=== PATIENT | male | born 1945 | race Caucasian/White ===

== ENCOUNTER 2016-09-21 11:30 | Inpatient (IN) | payer MEDICARE, OTHER ==
[~2016-09-21] VITALS: Ht 172.7 cm; Wt 59.0 kg
--- NOTE | ~2016-09-21 | OR ---
PATIENT'S NAME: TONYA MARC [facility] AGE: 70 Y [address] ROOM: [place] [address] LOCATION: GPCU ADMIT DATE: 09/22/2016 OR/Procedure Report DISCHARGE DATE: FAMILY PHYSICIAN: YOLIE DERAS MD ATTENDING PHYSICIAN: Isaiah Alcantara SURGEON: Isaiah Alcantara DO WHITE SHOE RAGGER: DATE OF PROCEDURE: 09/22/2016 PREOPERATIVE DIAGNOSIS: Left hydropneumothorax. POSTOPERATIVE DIAGNOSIS: Left hydropneumothorax. PROCEDURE: Placement of left PleurX drain. BRIEF HISTORY: Mr. Marc is status post left lower lobectomy for abscess. He has recently been discharged to home. He developed a hydropneumothorax and was transferred to [facility]. He has been brought to the operative suite today for placement of the drain. PROCEDURE IN DETAIL: He was sterilely prepped and draped in a supine position. After appropriate IV sedation was achieved, 1% lidocaine was used to infiltrate a skin wheal in the approximately 4th intercostal space. The pleura and hydropneumothorax space was accessed with a needle and guidewire fed without resistance under fluoroscopic guidance and sheath and dilator assembly were placed over the guidewire. The guidewire and dilator were removed and through this sheath we advanced a PleurX drain under fluoroscopic guidance. The drain was then secured to skin of the sheath was removed and tube connected to suction. The patient tolerated the procedure well and was transferred to the recovery in stable condition. DO CARLOS LOGAN/rubiol /[id number] d: 09/29/162213 t: 09/29/162241, OPERATIVE SUMMARY
--- NOTE | ~2016-09-21 | HP ---
PATIENT'S NAME: TONYA HOFFMANN [facility] AGE: 70 Y [address] ROOM: [place] [address] LOCATION: GPCU ADMIT DATE: 09/22/2016 History & Physical DISCHARGE DATE: 10/07/2016 FAMILY PHYSICIAN: Tri Serrano MD ATTENDING PHYSICIAN: Isaiah Manzano CORRECTED PATIENT ACCOUNT INFORMATION 10/15/16 AO HISTORY OF PRESENT ILLNESS: The patient is a 70-year-old white male, who is being transferred here from [facility]. The patient had recently arrived to the [facility] via [facility] after he had called with complaints of shortness of breath. Upon his arrival, he was found to have an elevated respiratory rate and decreased systolic blood pressures. He underwent a chest x-ray, which revealed a left-sided hydropneumothorax. Dr. Manzano was contacted regarding the patient's transfer for a higher level of care for remediation of the hydropneumothorax. The patient was just dismissed from [facility] back on September 18, 2016 after treatment for a recent left lower lobe abscess/empyema, for which the patient underwent a left thoracotomy with decortication, removal of a hemothorax, and a left lower lobectomy. This was performed on September 01, [address] Manzano. The patient was discharged on Levaquin, and was following with his Infectious Disease doctor, Dr. Portillo in [place]. The patient has had multiple setbacks with pulmonary issues as of late. PAST MEDICAL HISTORY: Illnesses are 1. 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 2. Recent pneumonia in July 2016, with positive respiratory cultures with Klebsiella and Serratia. 3. Hypertension. 4. Pulmonary hypertension. 5. Nocturnal hypoxia. 6. Chronic back pain. 7. History of migraine headaches. 8. History of tobaccoism. PAST SURGICAL HISTORY: Surgeries/procedures are 1. Cholecystectomy. 2. Appendectomy. 3. Previous heart catheterization. 4. Bilateral carpal tunnel release. 5. Removal of a brain cyst. PATIENT'S NAME: TONYA HOFFMANN [facility] AGE: 70 Y [address] ROOM: [place] [address] LOCATION: GPCU ADMIT DATE: 09/22/2016 History & Physical DISCHARGE DATE: 10/07/2016 FAMILY PHYSICIAN: Tri Serrano MD ATTENDING PHYSICIAN: Isaiah Manzano ALLERGIES: ROCIO. SOCIAL HISTORY: Marital Status: The patient resides in [place], [place]. He is . Occupational History: He is retired, I believe from the [employer]. Habits: He has at least a [id number] history with smoking. He quit on June 08, 2016. He denies use of alcohol. FAMILY HISTORY: This is significant for his mother having had lung cancer and his father having diabetes. MEDICATIONS: Include 1. Advair 500/50 one puff per inhalation b.i.d. 2. Ambien 10 mg p.o. at bedtime. 3. Hyzaar 100/12.5 mg p.o. q.a.m. 4. MS Contin 15 mg p.o. at bedtime. 5. Zanaflex 4 mg p.o. q.12 hours/p.r.n. muscle pain. 6. Aspirin 81 mg daily. 7. Norvasc 5 mg q.a.m. 8. Levaquin 500 mg at bedtime. 9. Ipratropium/albuterol per nebulization b.i.d. 10. Imitrex 100 mg at bedtime p.r.n. migraines. 11. Ultram 50 mg q.8 hours p.r.n. pain. 12. Prednisone 10 mg daily. 13. Vitamin C 1000 mg daily. 14. Guaifenesin 600 mg two tablets b.i.d. 15. [place] 5/325 one to two every 4 to 6 hours as needed. 16. Tudorza/Pressair one puff per inhalation b.i.d. 17. Lipitor 40 mg daily. 18. Potassium gluconate 99 mg daily. 19. Albuterol two puffs per inhalation q.6 hours p.r.n. REVIEW OF SYSTEMS: A ten-point review of systems was performed with negative findings other than those mentioned per HPI history of present illness. PHYSICAL EXAMINATION: VITAL SIGNS: Blood pressure was 113/63, pulse was 106, respirations were 24, PATIENT'S NAME: TONYA HOFFMANN [facility] AGE: 70 Y [address] ROOM: [address] [place] [id number] LOCATION: GPCU ADMIT DATE: 09/22/2016 History & Physical DISCHARGE DATE: 10/07/2016 FAMILY PHYSICIAN: Tri Serrano MD ATTENDING PHYSICIAN: Isaiah Manzano temperature was 100.4, and O2 saturations were 100% on 4 liters. GENERAL: He is pleasant. He is somewhat restless upon arrival. He appeared lethargic. HEENT: Normocephalic with EOMIs intact. Conjunctivae are clear. LUNGS: Clear to bilateral upper and diminished in bilateral lowers. CARDIOVASCULAR: Tachycardic, but regular. ABDOMEN: Soft and nontender by four quadrants. Positive bowel sounds throughout. CHEST: His thoracic incision on the left is tender to touch. He does wince. EXTREMITIES: A +2 edema bilaterally to the lower extremities. MUSCULOSKELETAL: Good range of motion of bilateral upper and lower extremities. NEUROLOGIC: Alert and oriented x3. LABORATORY DATA AND DIAGNOSTIC STUDIES: Laboratory and test results are pending. IMPRESSION: 1. Hydropneumothorax, transfer for a higher level of care. 2. Tachycardia secondary to above. 3. Severe chronic obstructive pulmonary disease/emphysema. RECOMMENDATIONS AND PLAN: We will plan for a CT scan of the chest without contrast right away. We will obtain JAZMIN hose. Plan will be for n.p.o. after midnight with placement of a left PleurX catheter drain on September 22, 2016. The plan was discussed with the patient and he does agree. Further recommendations are forthcoming, pending results of further studies. RASHAUN LYONS APRN FOR ISAIAH MANZANO DO DLQ/modl /[id number] CORRECTED PATIENT ACCOUNT INFORMATION 10/15/16 AO D: [id number] T: [id number] HISTORY & PHYSICAL
--- NOTE | ~2016-09-21 | DS ---
PATIENT'S NAME: TONYA HOFFMANN [facility] AGE: 70 Y [address] ROOM: [address] [place] [id number] LOCATION: GPCU ADMIT DATE: 09/22/2016 Discharge Summary DISCHARGE DATE: 10/07/2016 FAMILY PHYSICIAN: Tri Serrano MD ATTENDING PHYSICIAN: Isaiah Alcantara [facility] COURSE: The patient is a 70-year-old white male who was admitted on September 21, 2016 with findings of hydropneumothorax. The patient had just been previously discharged from the hospital approximately 3 days prior with a similar diagnosis. He had just not made improvement. The patient had presented to [place] with concerns. A CT scan of the chest was indicative of the hydropneumothorax on the left, and the patient was transferred under the care of Dr. Alcantara for a higher level of care. Dr. Alcantara spoke to the patient and his regarding the findings of the hydropneumothorax and discussed placement of a left PleurX catheter drain which was performed in the OR by Dr. Alcantara on September 22, 2016. The patient had no surgical complications and transferred back to the progressive care floor following the procedure. The patient was noted to have thrush and was treated with Diflucan. The patient did end up having positive fluid cultures on his surgical fluids, and he was started on gentamicin. Findings were for Pseudomonas. The patient also had cultures that were sent out to the [facility] for sensitivity. Empiric clindamycin was initiated until results were available. The patient's labs were checked frequently given the use of gentamicin. Later, the antibiotics were changed over to tobramycin. The patient was started on an antidepressant. The patient has had numerous hospitalizations. He was not showing any resolution in the bubbling in his chest tube chamber and did exhibit concerns with depression. Chest tube output was monitored closely. The patient did remain with a persistent air leak for several days postop. Eventually, the patient's chest tube was changed to water seal. He did have followup serial x-rays. He did have a change in the fluid coming from his chest tube. The chest tube was clamped off. Fluid was obtained, and multiple organisms were identified. A PICC line was placed to accommodate additional antibiotic therapy. PT, OT, and Cardiac Rehab worked with the patient during his stay. Wound care nurses did see the patient to change out his mattress to an egg crate to help with the likelihood of skin breakdown. The patient did have a depressed prealbumin, and there were concerns for healing complications. Chest x-rays continued to show fluid air levels, but at a reduced level. The cultures did return with final organisms identified as Pseudomonas aeruginosa, also with Stenotrophomonas maltophilia, and a third organism of Prevotella denticola. Care Management was asked to follow the patient in an effort to eventually get him home with either home infusion or outpatient infusion of antibiotics as the patient would require approximately 4 weeks of therapy. Also, home health for drainage of the PleurX catheter upon the patient's discharge. This would need to be drained daily. Home health will also work with the insurance companies. PATIENT'S NAME: TONYA HOFFMANN [facility] AGE: 70 Y [address] ROOM: [place] [address] LOCATION: GPCU ADMIT DATE: 09/22/2016 Discharge Summary DISCHARGE DATE: 10/07/2016 FAMILY PHYSICIAN: Tri Serrano MD ATTENDING PHYSICIAN: Isaiah Alcantara By 10/07/2016, the patient was found stable to discharge. His blood cultures were negative. The patient exhibited no evidence of sepsis throughout his stay. DISCHARGE ORDERS: Include diet as previous. Activity levels as tolerated. With regard to dressing changes, the PleurX catheter drain dressing should be changed weekly and p.r.n. We will ask that home health drain the PleurX catheter daily. Arrangements were made for outpatient infusion services for the IV antibiotics on a daily basis. Followup appointment was scheduled for [address] Alcantara. DISCHARGE MEDICATIONS: Include: 1. Advair 500/50 one puff per inhalation twice a day. 2. Ambien 10 mg at h.s. 3. MS Contin 15 mg at h.s. 4. Zanaflex 4 mg q.12 hours p.r.n. 5. Aspirin 81 mg daily. 6. Imodium 4 mg daily/p.r.n. 7. Oxygen at 2 L per nasal cannula at h.s. 8. Ipratropium/albuterol per nebulizer twice a day. 9. Imitrex 100 mg p.o. p.r.n. migraine headache. 10. Ultram 50 mg q.8 hours p.r.n. 11. Prednisone 10 mg daily. 12. Vitamin C 1000 mg daily. 13. Acidophilus one tablet twice a day. 14. Promethazine with codeine 5 mL orally up to 4 times a day/p.r.n. 15. Humibid LA 1200 mg twice a day. 16. [place] 5/325 one to two every 4 hours as needed. 17. Tudorza inhaler one puff twice a day. 18. Lipitor 40 mg daily. 19. Potassium gluconate 99 mg twice a day. 20. Albuterol 2 puffs per inhalation q.6 hours p.r.n. 21. Amikacin 900 mg IV daily. 22. Tobramycin 450 mg IV daily. 23. Clindamycin 600 mg p.o. q.i.d. 24. Lexapro 20 mg daily. 25. Hyzaar 50/12.5 mg daily. 26. Florastor 250 mg twice a day. 27. Bactrim DS one tablet twice a day. The patient and verbalized understanding of the discharge orders. The patient is discharged to home in stable condition. PATIENT'S NAME: TONYA HOFFMANN [facility] AGE: 70 Y [address] ROOM: [place] [address] [facility] ADMIT DATE: 09/22/2016 Discharge Summary DISCHARGE DATE: 10/07/2016 FAMILY PHYSICIAN: Tri Serrano MD ATTENDING PHYSICIAN: Isaiah Alcantara APRN FOR DO DONTRELL LOGAN/rubiol /[id number] d: 10/22/16 1520 t: 10/29/16 0723, DISCHARGE SUMMARY
[~2016-09-21 11:30] MED LIST: "\\\"PREP SPRAY\\\"-TIN4 OZ"; ADVAIR 500-501 EACH INH; AMBIEN10 MG PO; ASPIRIN LO-DOSE81 MG PO; AZITHROMYCIN500 MG PO; DELTASONE10 MG PO; FENTANYL IV; FLONASE 50 MCG/16 GM NOSE; FLORASTOR250 MG PO; HUMIBID LA (MU600 MG PO; HYZAAR 100-12.1 EACH PO; IMITREX100 MG PO; IMODIUM2 MG PO; IPRAT-ALBUT 0.5-3 ML INH; LEVAQUIN500 MG PO; LIORESAL10 MG PO; MIRALAX17 GM PO; MS CONTIN15 MG PO; NICODERM (HABIT14 MG TRANS; NORVASC5 MG PO; OCEAN NASAL) (A44 ML NOSE; OXYGEN M-15 INH; PROMETHAZINE-C240 ML PO; RISA-BID CAPLE1 EACH PO; ULTRAM50 MG PO; VITAMIN C1000 MG PO; ZANAFLEX4 MG PO
--- NOTE | 2016-09-21 12:40 | NUR ---
PATIENT ADMITTED VIA EMS FROM THE [facility] WITH A HYDROPNEUMOTHORAX. WAS RECENTLY DISCHARGED FROM [facility] ON THURSDAY FOLLOWING A LT)LOWER LOBE LOBECTOMY. HAD SOME INCREASED SOB AND DID NOT FEEL WELL YESTERDAY, HAD INCREASED RR IN THE 30S, HR 130S AND SBPS 80S IN [place]. WAS GIVEN A NEB TX, PLACED ON 4L, AND FLUID BOLUS AND TX HERE. VSS AND SATS 100% ON 4L AT ADMIT. 2 MG MS GIVEN FOR SURGICAL SITE PAIN ON ADMIT. GAUZE DRESSING TO LT)LATERAL CHEST IS C/D/I ON ADMIT FROM [place] ER. DR. MANZANO AT BEDSIDE FOR ADMIT ORDERS, PLANS TO PLACE A PLEURIX DRAIN TOMORROW. ORIENTED TO CALL LIGHT AND UPDATED AND FAMILY ON POC.
[2016-09-21] MEDS ORDERED: NORCO 5-325 TA1 EACH PO (14:19)
[2016-09-21] MEDS ORDERED: TUDORZA PRESS400 MCG INH (14:20)
[2016-09-21] MEDS ORDERED: POTASSIUM99 M1 (14:21)
[2016-09-21] MEDS ORDERED: LIPITOR40 MG PO (14:21)
[2016-09-21] MEDS ORDERED: PROVENTIL OR V6.7 GM INH (14:22)
--- NOTE | 2016-09-21 18:59 | NUR ---
Significant Event: VSS AND O2 WEANED TO 2L/NC. 2 MG MS GIVEN X2 IN ADDITION TO 2 TABS NORCO FOR LT)SIDED OLD SURGICAL SITE/CT PAIN. NON CONTRAST CT OF CHEST DONE. TO BE NPO P A CLEAR LIQUID BREAKFAST TOMORROW FOR PLEURIX DRAIN PLACEMENT WITH DR. MANZANO TOMORROW. Follow up: CONTINUE PLAN OF CARE.
--- NOTE | 2016-09-22 04:47 | NUR ---
Significant Event: Patient alert and oriented x 3 throughout whole shift. Denies pain. Penies shortness of breath. Patient on 1 L NC to maintain O2 > 90%. Pain well controlled with current regiment. SBP 90-110's. Lungs Dim on L side. Patient remain HOB >30 degrees throughout shift. Stood at bedside x2-3. Patient at bedside and very helpful with cares. Follow up: Continue to monitor per POC
--- NOTE | 2016-09-22 12:33 | NUR ---
Introduced self and role of care management to patient and . They are familiar with me from their last visit. They live [place]. We discussed the fact that he will be getting a Pleurx drain today. I explained that we liked to have home health follow when they first go home. They are in agreement. I called and made arrangements with [facility] for follow patient on discharge. Referral information faxed. Patient and deny any needs at this time. Will continue to follow.
--- NOTE | 2016-09-22 18:56 | NUR ---
Significant Event: PT RETURNS FROM O.R. ABOUT 1700 TONIGHT. LT LATERAL PLUEREX DRAIN TO SIDE COVERED WITH DRESSING, TO LIS. PT IS AWAKE BUT SLEEPY, ANSWERS QUESTIONS APPROPRIATELY, AT BEDSIDE. CHEST IS DRAINING RED SERIOSANG DRAINAGE. IV NS AT 50 HR TO LT HAND. PT DENIES NEEDS AT THIS TIME. LT SIDE HAS BEEN VERY TENDER TO TOUCH ALL THIS SHIFT, EVEN THE SHEET RUBBING OVER IT MAKE HIM WINCH. SAYS THIS IS THE WAY ITS ALWAYS BEEN SINCE THE ORIGINAL SURGERY 10 DAYS-2 WEEKS AGO. Follow up: MONITOR
--- NOTE | 2016-09-23 03:25 | NUR ---
Significant Event: A/O x3. Drowsy. Afebrile. Very tender/paim in left side, shoulder, upper back, and arm. VSS on RA. SBP 98-110s. Tachy HRs, 100-110s. Left pleurex drain with suction. Bubbling present. Gave 2 doeses of clindamycin. Pt recieves scheduled pain meds and gave an additinal prn norco. LS coarse, diminished. Follow up: Continue to monitor per plan of care.
[2016-09-23 04:25] LABS: HEMATOCRIT 28.6 % (37.0-53.0); HEMOGLOBIN 8.9 g/dL (11.0-16.0); MCHC 31.1 gm/dL (32.0-36.5); MCV 89.9 fl (83.0-98.0); MPV 8.8 fl (9.4-12.4); PLATELET COUNT 210 K/uL (150-450); RBC 3.18 M/uL (3.50-5.50); RDW-CV 16.4 % (11.9-14.6); WBC 2.8 K/uL (4.0-11.0)
[2016-09-23 04:42] LABS: BLOOD UREA NITROGEN 16 mg/dL (6-24); CALCIUM 8.1 mg/dL (8.5-10.5); CHLORIDE 100 mMol/L (96-110); CO2 28 mMol/L (22-32); CREATININE 0.5 mg/dL (0.6-1.3); ESTIMATED GFR (MDRD EQUATION) > 60; PHOSPHORUS 2.9 mg/dL (2.5-4.9); SODIUM 136 mMol/L (135-145)
[2016-09-23 04:44] LABS: ALBUMIN 1.6 gm/dL (3.5-5.0)
[2016-09-23 06:05] LABS: ABSOLUTE NEUTROPHIL CT (ANC) 2.1 K/uL (1.4-9.0); BANDED NEUTROPHIL # 1.3 K/uL (0.0-0.1); BANDED NEUTROPHILS % 46 %; LYMPHOCYTE # 0.5 K/uL (0.8-4.0); LYMPHOCYTE % 19 %; MONOCYTE # 0.1 K/uL (0.0-1.0); SEGMENTED NEUTROPHIL # 0.8 K/uL (1.4-9.0); SEGMENTED NEUTROPHIL % 29 %
--- NOTE | 2016-09-23 18:31 | NUR ---
A/O x 3. Very tender to left side. BP 106/59 this am but dropped to 83/54 after morning meds and PRN pain meds given. BP back to 104/62 at 1530. Provider notified of BP changes. Left CT with suction. Bubbling present. Inspiratory wheeze and pleural rub present on left side. O2 sat stable on RA.
--- NOTE | 2016-09-23 19:05 | NUR ---
I HAVE READ AND AGREE WITH CHARTING DONE BY Christopher HOSKINS STUDENT NURSE.
--- NOTE | 2016-09-24 04:38 | NUR ---
Significant Event: A/O x3. Afebrile. Gave scheduled pain meds and 2 tab norco. VSS on RA. SBP 90-131s. Chest tube 360ml out. LS coarse and dim in bases. Repo'd self and as needed. Cooperative with cares. Follow up: Continue to monitor per plan of care.
--- NOTE | 2016-09-24 09:06 | NUR ---
A - NUTRITION F/U: A/O X 3. LABS: NA+ 136, K+ 4.0, GLU 96, BUN/RECLAMATION KETTLE TENDER 6/0.5, ALB 1.6, WBC 2.8. PT W/ 1+ BLE EDEMA. DIET: REGULAR W/ ENSURE TID, INTAKE 50-100%. D - AT RISK W/ UNINTENDED WT LOSS R/T INADEQUATE ORAL INTAKE AEB HX OF 12% WT LOSS X 3 MONTHS. INTAKE SATISFACTORY AT THIS TIME. I - GOAL: CONT CURRENT INTAKE. M/E - WILL CONT TO MONITOR INTAKE ROUTINELY.
--- NOTE | 2016-09-24 16:25 | NUR ---
A/O x 3. VSS on RA throughout shift. Still had pain/tenderness to left rib area and left upper and lower back. Left CT with suction and bubbling present. Gave two doses of PRN [place] throughout shift for pain, see eMAR. LS include inspiratory wheeze and pleural rub on left, clear and diminshed on right. Levaquin DC'd and 1 dose of IV Gentamicin given.
--- NOTE | 2016-09-24 18:28 | NUR ---
I HAVE READ AND AGREE WITH CHARTING DONE BY DEEPIKA STUDENT NURSE.
--- NOTE | 2016-09-25 04:21 | NUR ---
Significant Event: Patient A/Ox3. VSS on RA. Up 1-assist. Voids per urinal. Complaints of left side pain at chest tube site. Scheduled pain meds given and norco given x1 around 0200. L) side chest tube to suction - bubbling in chamber, physician is aware. 180ml output from chest tube. Follow up: Continue plan of care
[2016-09-25 06:01] LABS: ANION GAP 11.8 (10.0-19.0); BLOOD UREA NITROGEN 13 mg/dL (6-24); CALCIUM 8.3 mg/dL (8.5-10.5); CHLORIDE 97 mMol/L (96-110); CO2 30 mMol/L (22-32); CREATININE 0.6 mg/dL (0.6-1.3); ESTIMATED GFR (MDRD EQUATION) > 60; PHOSPHORUS 3.5 mg/dL (2.5-4.9); POTASSIUM 3.8 mMol/L (3.7-5.1); SODIUM 135 mMol/L (135-145)
[2016-09-25 06:05] LABS: ALBUMIN 1.8 gm/dL (3.5-5.0)
--- NOTE | 2016-09-25 16:46 | NUR ---
Significant Event: A/O X3. VSS on RA. SBP in 100's. HR in 80's-90's. Up with one assist. Uses urinal to void. Has left chest pain from chest tube site. Chronic back pain. Rates pain as a 4, given [place] last at around 1430. Left chest tube to suction - bubbling in chamber. Lung sounds include wheeze and pleural rub on left, clear and diminished on right. 170ml out of chest tube. IV antibiotics continued. Follow up: Continue per plan of care.
--- NOTE | 2016-09-25 18:00 | NUR ---
I HAVE READ AND AGREE WITH CHARTING DONE BY Celsa CARRILLO STUDENT NURSE.
--- NOTE | 2016-09-26 04:22 | NUR ---
Significant Event: patient a/ox3. vss on ra. up 1-assist. voids per urinal. left side pain 3/10 treated once with one norco at 1900. patient has slept well this shift. 150ml out of chest tube, connected to suction, bubbling in chamber - physician is aware. System changed. Follow up: Continue plan of care
--- NOTE | 2016-09-26 17:03 | NUR ---
Significant Event: A/OX3, VSS ON RA. GAVE NORCO X2 LAST AT 1505 FOR PAIN IN BACK & LEFT SIDE. CHEST TUBE TO LEFT SIDE IS TO SUCTION WITH CONTINUOUS BUBBLING, DRESSING IS C/D/I, PT. HAD 130ml OUT, DOES HAVE SOME PURULENT/SEROSANGIOUS DRAINAGE. PT. GETS UP 1 ASSIST TO CHAIR, WALKS IN HALLS WITH CARDIAC REHAB. 1375mL UOP, NO BM TODAY. IV ABX'S CHANGED TODAY, STARTED ON TOBRAMYCIN. FAMILY HERE, AT BEDSIDE. Follow up: CONTINUE WITH POC.
[2016-09-27 03:22] LABS: HEMATOCRIT 29.6 % (37.0-53.0); HEMOGLOBIN 9.2 g/dL (11.0-16.0); MCH 27.4 pg (27.0-34.0); MCHC 31.1 gm/dL (32.0-36.5); MCV 88.1 fl (83.0-98.0); MPV 8.6 fl (9.4-12.4); RBC 3.36 M/uL (3.50-5.50); RDW-CV 17.3 % (11.9-14.6)
[2016-09-27 03:24] LABS: PLATELET COUNT 257 K/uL (150-450)
[2016-09-27 03:42] LABS: ANION GAP 13.4 (10.0-19.0); BLOOD UREA NITROGEN 12 mg/dL (6-24); CALCIUM 8.2 mg/dL (8.5-10.5); CHLORIDE 99 mMol/L (96-110); CO2 28 mMol/L (22-32); CREATININE 0.6 mg/dL (0.6-1.3); ESTIMATED GFR (MDRD EQUATION) > 60; PHOSPHORUS 4.2 mg/dL (2.5-4.9); POTASSIUM 4.4 mMol/L (3.7-5.1); SODIUM 136 mMol/L (135-145)
[2016-09-27 03:57] LABS: ALBUMIN 1.9 gm/dL (3.5-5.0)
[2016-09-27 05:12] LABS: ABSOLUTE NEUTROPHIL CT (ANC) 3.4 K/uL (1.4-9.0); BANDED NEUTROPHILS % 19 %; LYMPHOCYTE # 0.9 K/uL (0.8-4.0); LYMPHOCYTE % 17 %; MONOCYTE # 0.8 K/uL (0.0-1.0); SEGMENTED NEUTROPHIL # 2.4 K/uL (1.4-9.0); SEGMENTED NEUTROPHIL % 48 %
--- NOTE | 2016-09-27 05:18 | NUR ---
Significant Event: VSS.RA. L chest tube dressing is CDI, bubbling to chamber with 220cc out. Pt ambulated out in [place] this shift. Pt c/o back pain, scheduled pain meds given. Follow up:Cont with plan of care
--- NOTE | 2016-09-27 16:17 | NUR ---
Significant Event: Patient is A/O x 3. Up with 1A. Likes to push wheelchair in the hallways. VSS on RA. SBP 99-146. Left chest tube changed to water-seal this shift. 140 ml output brownish-yellow output. Gave [place] 2 tab last at 1244 for lower back pain along with aqua K pad with patient reporting pain is better and more tolerable now. Chronic back pain. Denies pain anywhere else. Breathing tx's changed to QID and q4h PRN. LFA PIV saline locked other than with IV antibiotics. Follow up: Continue as per plan of care. Monitor chest tube output and pain. Continue to encourage activity.
--- NOTE | 2016-09-28 04:04 | NUR ---
Significant Event:alert and oriented. L CT to water seal, no output this shift. Pt c/o back pain that is chronic, scheduled pain meds given. Pt CT site is CDI. Encouraged ambulation Follow up:Cont with plan of care
--- NOTE | 2016-09-28 04:06 | NUR ---
Significant Event: VSS. RA. Pt CT to water seal, 0 output this shift, dressing is CDI. Pt c/o pain to back which is chronic.MCELROY Follow up:Cont with plan of care
[2016-09-28 04:28] LABS: HEMOGLOBIN 9.2 g/dL (11.0-16.0); MCHC 30.7 gm/dL (32.0-36.5); MPV 8.7 fl (9.4-12.4); PLATELET COUNT 239 K/uL (150-450); RBC 3.41 M/uL (3.50-5.50); RDW-CV 17.6 % (11.9-14.6); WBC 7.1 K/uL (4.0-11.0)
[2016-09-28 04:48] LABS: ANION GAP 12.1 (10.0-19.0); BLOOD UREA NITROGEN 10 mg/dL (6-24); CALCIUM 8.5 mg/dL (8.5-10.5); CHLORIDE 99 mMol/L (96-110); CO2 28 mMol/L (22-32); CREATININE 0.5 mg/dL (0.6-1.3); ESTIMATED GFR (MDRD EQUATION) > 60; PHOSPHORUS 3.9 mg/dL (2.5-4.9); POTASSIUM 4.1 mMol/L (3.7-5.1); SODIUM 135 mMol/L (135-145)
[2016-09-28 05:30] LABS: ABSOLUTE NEUTROPHIL CT (ANC) 5.5 K/uL (1.4-9.0); BANDED NEUTROPHIL # 0.1 K/uL (0.0-0.1); BANDED NEUTROPHILS % 2 %; LYMPHOCYTE # 1.3 K/uL (0.8-4.0); LYMPHOCYTE % 18 %; MONOCYTE # 0.4 K/uL (0.0-1.0); SEGMENTED NEUTROPHIL # 5.3 K/uL (1.4-9.0); SEGMENTED NEUTROPHIL % 75 %
--- NOTE | 2016-09-28 16:08 | NUR ---
Significant Event: Patient A/O x 3. Up with 1A. Likes to push wheelchair in hallways. VSS on RA. SBP 90-100's most of the day. Decreased Cozaar dose. Left chest tube hooked back to low continuous suction due to worsening chest xray this A.M. 35 ml output. Patient states he is feeling worse today than yesterday, and states when the suction is hooked up, things are always worse for him. He reports feeling more shakey. Xanax given at 1512. Gave [place] 1 tab x 1 this A.M. for back pain, and has not requested pain pills since. Denies any other needs throughout the day. New PIV to RFA. Follow up: Continue as per plan of care. Monitor CT output. Monitor shakiness.
--- NOTE | 2016-09-29 04:15 | NUR ---
Significant Event: VSS. Pt c/o pain to back and CT site, prn med given. Pt up to chair. CT to suction, site is CDI. Pt states he "had a bad day." Pt refused to ambulate this shift. New pressure ulcer to coccyx, very small, barrier cream applied. Follow up: Cont with plan of care
--- NOTE | 2016-09-29 09:13 | NUR ---
A - NUTRITION F/U: 2 LABS: GLU 90, BUN/CONFIGURATION MANAGEMENT ARCHITECT 10/0.5, ALB 2.0. PT W/ 1-2+ EDEMA TO BLE. DIET: REGULAR W/ ENSURE TID. INTAKE VARIES 25-100%. PT W/ NEW PU TO COCCYX. D - AT RISK W/ INCREASED NUTRIENT NEEDS R/T ALTERED SKIN INTEGRITY AEB PU. I - GOAL: 50-100% INTAKE UNTIL DISMISSAL. 1) WILL CONT TO OFFER ENSURE TID TO INCREASE ENERGY AND PROTEIN INTAKE AND CONT TO MONITOR.
--- NOTE | 2016-09-29 16:15 | NUR ---
Significant Event: Alert & oriented, drowsy. SBP 90-120, HR 80-90's, afebrile. Dyspnea on exertion. Chest tube with 20 ml output. Gave [place] x2 and Xanax x1. Gave Bumex. Ambulated in luciano, 1 assist. at bedside.
--- NOTE | 2016-09-30 04:40 | NUR ---
Significant Event: Patient alert and oriented x3. Drowsy. SBP 98-122 this shift. All other vital signs stable. On room air. Lung sounds are absent on right side and diminished to left. Inspiratory wheezes to upper lobes. Chest tube continues to suction. Had 30ml output this shift. 2 tabs [place] x1 for complaints of back pain. Patient calm and cooperative with all cares. at bedside. Follow up: Will continue to monitor chest tube and pain.
--- NOTE | 2016-09-30 12:50 | NUR ---
Updated [facility] that patient is still an inpatient. Will still need home health on discharge.
--- NOTE | 2016-09-30 15:26 | NUR ---
Significant Event: A/O X 3. AFEBRILE. HR SR IN 70-80'S. NORCO FOR PAIN CONTROL OF LOWER BACK. RT. SIDED CT SITE, C/D/I. CT= 50 ML. ROOM AIR, SATS 92%. SOME SHORTNESS OF BREATH WITH EXCERTION NOTED. SBP 87-136. LUNGS CONT. WITH EXP. WHEEZE AND COURSE. PATIENT TAKEN TO INTERVENTION RADIOLOGY FOR PLACEMENT OF DUEL LUMEN PICC LINE IN RT. UPPER ARM. CONT. ON IV ANTIBIOTICS. HAS A SMALL SORE ON BUTTOM. Follow up: CONT. TO MONITER RESP. STATUS.
--- NOTE | 2016-10-01 04:40 | NUR ---
Significant Event: A/0X3. TURNED Q 2 HOURS SIDE TO SIDE. AFEBRILE. VSS ON RA. NORCO GIVEN X 2. PATIENT WAS ABLE TO FIND RELIEF AND REST COMFORTABLY AFTERWARDS. LAST DOSE WAS AT 0418. PATIENT ALSO REQUESTED XANAX AT BEGINNING OF SHIFT FOR INCREASED ANXIETY. PATIENT WAS ABLE TO FIND RELIEF AND WAS MORE RELAXED THE REST OF THE SHIFT. IV TO R) HAND SL. PICC TO R) UPPER ARM SL. FLUSHES WITH GOOD BLOOD RETURN. DRESSING TO SITE NEEDS CHANGED TODAY AFTER 1500. CT TO L) LATERAL SIDE. STILL HAS CONTINUOUS BUBBLING. DRESSING C/D/I. HAD 10 OUT. VOIDS FINE PER THE URINAL. NO BM THIS SHIFT. CONTINUE WITH IV ANTIBIOTICS. Follow up: CONTINUE WITH PLAN OF CARE.
--- NOTE | 2016-10-01 18:03 | NUR ---
Patient A&O x3. Patient one-assist with gaitbelt. Patient reported pain at 3/10 throughout day, breakthrough pain last treated with [place] at 1700. Patient uses urinal to void. Patient up in chair all day with position changes. JAZMIN hose on. Patient had one moderate BM. present throughout day and involved with care. assisted patient with partial bath and other hygiene needs. Left lateral chest tube had 70 ml of serous drainage. Righ hand saline locked, 7.41 mg/kg of tobramycin running in double lumen PICC in right upper arm. Patient refused scheduled mouthwash rinse. Continue per plan of care.
--- NOTE | 2016-10-02 04:00 | NUR ---
Significant Event: A/0X3. TURNED Q 2 HRS. AFEBRILE. VSS ON RA. NORCO GIVEN X1. LAST DOSE WAS AT 0215. PATIENT WAS ABLE TO FIND RELIEF AND RESTING COMFORTABLY. CT TO SUCTION HAD 80 SEROUS DRAINAGE OUT. DRESSING C/D/I. PICC TO R) UPPER ARM SL. FLUSHES WITH GOOD BLOOD RETURN. DRESSING CHANGED TONIGHT. IV TO R) HAND SL. VOIDS FINE PER THE URINAL. NO BM THIS SHIFT. STARTED PO CLINDAMYCIN. Follow up: CONTINUE WITH PLAN OF CARE.
[2016-10-02 08:07] LABS: CREATININE 0.5 mg/dL (0.6-1.3); ESTIMATED GFR (MDRD EQUATION) > 60
--- NOTE | 2016-10-02 13:46 | NUR ---
reviewed student charting and on the floor from [id number] gopi [id number]
--- NOTE | 2016-10-02 15:58 | NUR ---
A - NUT F/U. STAGE II PU TO COCCYX. PICC. 1+ EDEMA. MEDS: CLINDAMYCIN, TOBRAMYCIN, LEXAPRO, BOWEL/NAUSEA, REGLAN, PEPCID, FLORASTOR DIET: REG. INTAKE: 50-100% ENSURE TID NEEDS: 9076-1914 KCAL, 70-84 G PRO D - INCREASED PRO NEEDS R/T HEALING AEB STAGE II PU. I - GOAL FOR INTAKE TO REMAIN 50-100% FOR DURATION OF STAY. WILL CONTINUE ENSURE TID. M/E - WILL MONITOR INTAKE AND SKIN F/U IN 4-6 DAYS.
--- NOTE | 2016-10-02 16:50 | NUR ---
Significant Event: SBP 100-110'S. NSR RATES 70-80'S. RA. CT TO -20CM SUCTION WITH 60ML SEROUS DRAINAGE. DRESSING CHANGED TO L) LATERAL CT SITE WITH DRAIN GAUZE AND TEGADERM. AFEBRILE. NORCO 1 TAB GIVEN AT 1406 WITH RELIEF NOTED. PT/OT ORDERED WELL CARDIAC REHAB. AMBULATE IN HALLWAY. SBA WITH WALKER AND GAIT BELT. PICC TO R) UPPER ARM. NEW ORDERS PER WOC TO SIT IN CHAIR NO MORE THAN 2 HOURS AT A TIME D/T OPEN SORE TO BUTTOCKS. ALOE VESTA WITH EACH TURN Q2HR. Follow up: CONT PER PLAN OF CARE. AWAITING ON LABS/REPORTS FROM [facility].
--- NOTE | 2016-10-03 04:20 | NUR ---
Significant Event: A/0X3. TURNED Q 2 HRS SIDE TO SIDE AND ALEO VESTA APPLIED TO BUTTOCKS. AFEBRILE. VSS ON RA. SCHEDULED MS CONTIN GIVEN AT BEDTIME FOR PAIN. NO OTHER C/O OF PAIN THROUGHOUT THE SHIFT. PATIENT REQUESTED XANAX THIS EVENING. GIVEN AND PATIENT WAS ABLE TO RELAX. CT HOOKED TO SUCTION HAD 110 SEROUS DRAINAGE OUT. DRESSING C/D/I. VOIDS PER THE URINAL. HAD 1300 OUT. NO BM THIS SHIFT. Follow up: CONTINUE WITH PLAN OF CARE. WAITING ON RESULTS OF LAB.
[2016-10-03 10:08] LABS: BASOPHIL % 0.2 %; EOSINOPHIL % 0.2 %; HEMATOCRIT 33.1 % (37.0-53.0); HEMOGLOBIN 10.3 g/dL (11.0-16.0); IMMATURE GRANULOCYTE # 0.2 K/uL (0.0-0.3); IMMATURE GRANULOCYTE % 2.2 %; LYMPHOCYTE # 0.6 K/uL (0.8-4.0); LYMPHOCYTE % 6.7 %; MCH 27.6 pg (27.0-34.0); MCHC 31.1 gm/dL (32.0-36.5); MCV 88.7 fl (83.0-98.0); MONOCYTE # 0.8 K/uL (0.0-1.0); MONOCYTE % 8.2 %; MPV 8.6 fl (9.4-12.4); NEUTROPHIL # (ANC) 7.7 K/uL (1.4-9.0); NEUTROPHIL % 82.5 %; NRBC % 0 /100WBC (0-0.00); PLATELET COUNT 217 K/uL (150-450); RBC 3.73 M/uL (3.50-5.50); WBC 9.4 K/uL (4.0-11.0)
--- NOTE | 2016-10-03 17:21 | NUR ---
Significant Event: drainage from chest tube changed from serosanguinous to milky and purulent. Dr Alcantara was notified and speculated that the change was r/t a pocket bursting and draining. Pt reported no increased SOB, chest pain or chills. Remained afebrile throughout the shift. Pt had a run of 38 assymptomatic SVT. Marleny Soliman was notified. K+ & Mg was ordered. Aloe Bridgeton applied frequently for a small red area to the left buttock. Follow up: labs & continue to monitor
[2016-10-03 17:25] LABS: MAGNESIUM 1.9 mg/dL (1.3-2.6); POTASSIUM 4.7 mMol/L (3.7-5.1)
--- NOTE | 2016-10-03 17:38 | NUR ---
Significant Event: DRAINAGE CHANGED FROM SEROSANGUINOUS TO MILKY AND PURULENT. DR MANZANO WAS NOTIFIED AND SPECULATED THAT THE DRAINAGE WAS DUE TO A POCKET BURSTING. THE PATIENT HAD NO REPORTED INCREASE IN SOB, CHEST PAIN, OR CHILLS. HE WAS AFEBRILE THROUGHOUT SHIFT. CHEST TUBE OUTPUT 50 ML. PATIENT HAD AN ASYMPTOMATIC RUN OF 38 SVTS. LUCERO LYONS WAS NOTIFIED. K+ & MG WERE ORDERED AND PENDING. Follow up:
--- NOTE | 2016-10-03 17:59 | NUR ---
NURSING NOTE: JARAD NAYAK STUDENT NURSE, ASSESSED AND DOCUMENTED ON THIS PATIENT AND I AGREE WITH HER ASSESSMENT AND DOCUMENTATION. UMESH MOY
--- NOTE | 2016-10-04 04:16 | NUR ---
Significant Event: A/O, VSS on RA, inspiratory wheezes to upper lobes, dressing to CT dry/intact, creamy/purulent drainage continues with 140ml out in CT, aloe to buttocks, patient refusing turns throughout night, [place] given x1 for back/left side pain with relief, cooperative with cares, at bedside Follow up: awaiting labs from [facility]
--- NOTE | 2016-10-04 14:23 | NUR ---
Significant Event: A/O X 3. REPOSITIONS OFTEN, BUT LIKES BEING UP IN CHAIR. AMBULATES IN HALLS WITH ONE ASSIST. CT WITH 100 ML OF MILKY DRAINAGE. LT. LATERAL DRESSING C/D/I. AFEBRILE. HR SR IN 80'S. SBP 113-124. NORCO FOR PAIN CONTROL WITH RELIEF. Follow up: CONT. TO [facility]ITER RESP. STATUS
[2016-10-05 03:15] LABS: CREATININE 0.5 mg/dL (0.6-1.3); ESTIMATED GFR (MDRD EQUATION) > 60
--- NOTE | 2016-10-05 04:56 | NUR ---
Significant Event: PATIENT IS A/O X3. VSS. HR 70-90'S. SBP 110'S. AFEBRILE. 02 SATS IN MID 90'S ON RA. C/O PAIN TO LEFT SIDE. 1 TAB NORCO GIVEN X1 WITH RELIEF. HAS CHEST TUBE TO LEFT SUCTION ATTACHED TO SUCTION. HAD 50ML SEROUS/MILKY DRAINAGE. CONTINUOUS BUBBLING. DRESSING C/D/I AND NO CREPTIUS NOTED. LUNGS MOSTLY WHEEZY ON LEFT SIDE AND CLEAR/DIM RIGHT UPPER LOBE AND DIM IN MIDDLE/LOWER RIGHT LOBES. UP WITH 1A TO RESTROOM. FAMILY ASSISTS PATIENT WITH ADL'S. BOWELS SOUNDS MORE ON HYPERACTIVE SIDE. VOID PER URINAL. OPEN SORE TO LEFT BUTTOCKS. ALOE APPLIED FREQUENTLY AND PATIENT TURNED Q2H. AIR BED IN ROOM. RIGHT UPPER ARM PICC SL. CAPS CHANGED. Follow up: CONTINUE TO MONITOR PER PLAN OF CARE.
--- NOTE | 2016-10-05 15:36 | NUR ---
Significant Event: A/O X 3. AT BEDSIDE AND HELPS WITH ADL'S. NORCO FOR PAIN CONTROL. XANAX FOR AXIETY. PATIENT DIDN'T FEEL GOOD THIS A.M., BUT FEELS MUCH BETTER THIS AFTERNOON. HIGH TEMP 99.5. LUNGS STILL WITH EXP. TYPE WHEEZE. HR SR IN 70-80'S. SBP 98-138. SORE ON BOTTOM IS HEALING VERY NICELY,AND IS ALMOST GONE. CT = 100 ML. LESS MILKY, MORE CLEAR BUT WHITE IN COLOR. INCREASED LEXAPRO MED. LABS IN A.M. AND CHEST X-RAY. Follow up: CONT. PLAN OF CARES. AWAIT [facility] LAB RESULTS.
--- NOTE | 2016-10-06 04:58 | NUR ---
Significant Event: PATIENT IS A/O X3. VSS. HR 70-90'S. SBP 120'S. AFEBRILE. 02 SATS IN MID 90'S ON RA. C/O LEFT SIDE PAIN. 1 TAB NORCO GIVEN X2 WITH RELIEF. LUNGS VARRIED FROM WHEEZES ON LEFT SIDE TO CLEAR/DIM WITH HALLOW SOUND. CHEST TUBE TO LEFT SIDE ATTACHED TO SUCITON. HAD 110ML OUTPUT. CONTINUES TO HAVE SLIGHT FLUCUATIONS AND BUBBLING. NO CREPITUS NOTED. DRESSING C/D/I. UP WITH 1A. BOWELS ACTIVE. VOIDS PER URINAL. OPEN SORE TO LEFT BUTTOCK CONTINUES TO IMPROVE. RIGHT UPPER ARM PICC SL. GOOD BLOOD RETURN. ON PO ABX. Follow up: CONTINUE TO MONITOR PER PLAN OF CARE.
--- NOTE | 2016-10-06 11:43 | NUR ---
Social visit with patient and . We discussed discharge plans. I explained that at this time patient will need to be discharged on IV antibiotics. We discussed the option of home infusion. Patient and feel that they will be able to do home infusion. I have already set up home health to follow thru [facility] home health and hospice. Called and updated Paula at [facility] of discharge plan. Will continue to follow.
--- NOTE | 2016-10-06 14:48 | NUR ---
A - NUT F/U. CHEST TUBE. STAGE II PU - IMPROVING - NOW CLOSED. NO NEW LABS. MEDS: LEXAPRO, CLINDAMYCIN, TOBRAMYCIN, BOWEL/NAUSEA, REGLAN, PEPCID, KCL, FLORASTOR DIET: REG. INTAKE: 75-100%. ENSURE TID - 75-100% NEEDS: 4051-2266 KCAL, 70-84 G PRO D - INCREASED PRO NEEDS R/T HEALING AEB ALTERED SKIN INTEGRITY. I - GOAL FOR INTAKE TO REMAIN 75-100% FOR DURATION OF STAY. GOAL FOR CONTINUE SKIN HEALING. WILL CONTINUE ENSURE TID. M/E - WILL MONITOR INTAKE AND SKIN F/U IN 4-6 DAYS.
--- NOTE | 2016-10-06 15:07 | NUR ---
Significant Event: A/O X 3. NORCO FOR PAIN CONTROL. XANAX FOR SHAKINESS. CT=90 ML TODAY. AMBULATE IN HALLS ONE ASSIST. AFEBRILE. HR SR IN 70-80'S. SBP 106-120. ADDED 2 MORE IV ANTIBIOTICS, FROM CULTURES RETURNED FROM PLEURAL FLUID. Follow up: CONT. TO MONITER RESP. STATUS. HOME INFUSION TOMMORROW, PLAN HOME TOMMORROW.
[2016-10-07 04:04] LABS: ALBUMIN 2.4 gm/dL (3.5-5.0); ANION GAP 11.3 (10.0-19.0); BLOOD UREA NITROGEN 13 mg/dL (6-24); CALCIUM 8.4 mg/dL (8.5-10.5); CHLORIDE 99 mMol/L (96-110); CO2 30 mMol/L (22-32); CREATININE 0.6 mg/dL (0.6-1.3); ESTIMATED GFR (MDRD EQUATION) > 60; PHOSPHORUS 3.9 mg/dL (2.5-4.9); POTASSIUM 4.3 mMol/L (3.7-5.1); SODIUM 136 mMol/L (135-145)
[2016-10-07 04:48] LABS: BASOPHIL % 0.4 %; EOSINOPHIL # 0.1 K/uL (0.0-0.5); EOSINOPHIL % 1.8 %; HEMATOCRIT 31.9 % (37.0-53.0); HEMOGLOBIN 10.1 g/dL (11.0-16.0); IMMATURE GRANULOCYTE # 0.2 K/uL (0.0-0.3); IMMATURE GRANULOCYTE % 3.4 %; LYMPHOCYTE % 17.3 %; MCH 28.1 pg (27.0-34.0); MCHC 31.7 gm/dL (32.0-36.5); MCV 88.9 fl (83.0-98.0); MONOCYTE # 0.8 K/uL (0.0-1.0); MONOCYTE % 14.6 %; MPV 8.5 fl (9.4-12.4); NEUTROPHIL # (ANC) 3.5 K/uL (1.4-9.0); NEUTROPHIL % 62.5 %; NRBC % 0 /100WBC (0-0.00); PLATELET COUNT 183 K/uL (150-450); RBC 3.59 M/uL (3.50-5.50); WBC 5.6 K/uL (4.0-11.0)
--- NOTE | 2016-10-07 05:34 | NUR ---
Significant Event: VSS.RA. Pt c/o pain to back. scheduled and prn pain meds given with relief. Pt CT CDI, 110cc out. IV antibiotics given as ordered. PICC flushes and has good blood return to [facility]. Follow up:dismissal with home infusions
--- NOTE | 2016-10-07 13:23 | NUR ---
Faxed home infusion information to [facility] home infusion. Janet called back and states that it will be a $20 per drug per week co pay and a $30 per day for supplies. I explained this to patient and his . They state that they can not afford this. I explained that the other option we would have is them go in to the [facility] for out patient therapy but it would be 3 times a day. They are willing to go to the hospital. I called and spoke with the scheduling department at [facility] and they will call me back with a schedule. I updated patient and his .
[2016-10-07] MEDS ORDERED: [UNRECOGNIZED DRUG - OTHER] IV (14:19)
[2016-10-07] MEDS ORDERED: FORTAZ2 GM IV (14:21)
[2016-10-07] MEDS ORDERED: [UNRECOGNIZED DRUG - OTHER] IV (14:22)
[2016-10-07] MEDS ORDERED: TOBRAMYCIN IV (14:22)
[2016-10-07] MEDS ORDERED: CLEOCIN150 MG PO (14:27)
[2016-10-07] MEDS ORDERED: LEXAPRO20 MG PO (14:28)
[2016-10-07] MEDS ORDERED: HYZAAR 50-12.51 EACH PO (14:31)
[2016-10-07] MEDS ORDERED: FLORASTOR250 MG PO (14:34)
[2016-10-07] MEDS ORDERED: BACTRIM DS1 TAB PO (14:57)
--- NOTE | 2016-10-07 16:09 | NUR ---
Received call from Marleny Soliman. They are changing patients Fortaz to po Bactrim. I called and updated Scheduling at [facility]. Patient will go tot [facility] at 2100 tonight for Tobramycin infusion and 0700 tomorrow morning for his Amikacin. I updated Niesha and explained that patient could be discharged to home.
--- NOTE | 2016-10-07 17:08 | NUR ---
PATIENT AND GIVEN WRITTEN DISMISSAL INSTRUCTIONS INCLUDING NEW HOME MEDICATION LIST WITH INFORMATION ON NEW MEDS, PRESCRIPTIONS, FOLLOW-UP APPOINTMENT TIMES, DIET AND ACTIVITY RESTRICTIONS, HOME HEALTH WITH OUTPT IV ATB INFUSIONS. DUAL LUMEN PICC REMAINS INTACT TO RIGHT UPPER ARM WITH GOOD BLOOD RETURN FROM EACH LUMEN WITH CATHFLOW USED VIA PURPLE PORT, SUCCESSFUL. DRESSING TO PLEURX DRAIN INTACT WITH INSTRUCTIONS TO CHANGE WEEKLY AND PRN. PATIENT AND BOTH VERBALLY STATE UNDERSTANDING OF INFORMATION DISCUSSED WITH RN. TELEMETRY DC'D AND PATIENT DRESSED IN OWN CLOTHING. TAKEN TO FRONT OF [facility] ENTRANCE VIA WHEELCHAIR WITH , BELONGINGS, STUDENT RN AND PRIMARY RN AT 1630.
== END 2016-10-07 16:30 | disposition home health service (06) | DRG 187 ==
LOC: GPCU 11:30
PROVIDERS: Nurse Practitioner Women's Health; ADMIT Thoracic Surgery (Cardiothoracic Vascular Surgery)
PROC: 0B9P30Z Drainage of Left Pleura with Drainage Device, Percutaneous Approach (ICD-10-PCS; 2016-09-22)
PROC: 02HV33Z Insertion of Infusion Device into Superior Vena Cava, Percutaneous Approach (ICD-10-PCS; principal; 2016-09-30)
DX: J94.8 Other specified pleural conditions (principal); E44.0 Moderate protein-calorie malnutrition; B37.0 Candidal stomatitis; I27.2 Other secondary pulmonary hypertension; G47.34 Idiopathic sleep related nonobstructive alveolar hypoventilation; J93.82 Other air leak; B96.5 Pseudomonas (aeruginosa) (mallei) (pseudomallei) as the cause of diseases classified elsewhere; B96.89 Other specified bacterial agents as the cause of diseases classified elsewhere; J44.9 Chronic obstructive pulmonary disease, unspecified; I10 Essential (primary) hypertension; R60.9 Edema, unspecified; Z87.01 Personal history of pneumonia (recurrent); Z87.891 Personal history of nicotine dependence; G89.29 Other chronic pain; M54.9 Dorsalgia, unspecified; R00.0 Tachycardia, unspecified; Z79.82 Long term (current) use of aspirin; Z79.52 Long term (current) use of systemic steroids
CPT/HCPCS: C1729; C1751; C1769; G0237; G0424; J0278; J0690; J0713; J1580; J1644; J2270; J2997; J3010; J3260; J7030; J7040; J7050; J7060; J7512

== ENCOUNTER 2016-10-14 17:00 | Inpatient (IN) | payer MEDICARE, OTHER ==
[~2016-10-14] VITALS: Ht 170.2 cm; Wt 65.0 kg
--- NOTE | ~2016-10-14 | OR ---
PATIENT'S NAME: NEVILLE MARC [facility] AGE: 70 Y [address] ROOM: [address] [place] [address] LOCATION: GPCU ADMIT DATE: 10/15/2016 OR/Procedure Report DISCHARGE DATE: FAMILY PHYSICIAN: YOLIE DERAS MD ATTENDING PHYSICIAN: Isaiah Alcantara SURGEON: Jeff Yi MD PRISON LIBRARIAN: DATE OF PROCEDURE: 10/15/2016 The following lines were placed during the patient's left thoracotomy and decortication. HISTORY OF PRESENT ILLNESS/INDICATIONS: Neville Marc is a 70-year-old gentleman with a history of COPD chronic obstructive pulmonary disease and emphysema, who suffered a lung abscess of the left lower lobe, which was resected about a month ago. He presented today with recurrence of empyema, and will require open decortication. He also has a history of severe elevation of PA pulmonary artery pressures. Last estimate on the patient's PA pulmonary artery pressures was in the 70s on his last echocardiogram. A detailed discussion of risks, benefits, and alternatives including arterial line and a central line for measurement of CVP central venous pressure was undertaken with the patient and his in the preoperative holding area. They agreed to the plan as stated after risks, benefits, and alternatives were discussed. DESCRIPTION OF SURGERY: We proceeded to Operating Room 4, where he underwent uneventful induction of general anesthesia and intubation with a 37 left double-lumen endotracheal tube. Position was verified by fiberoptic bronchoscopy, and procedure #[address] The patient was placed in Trendelenburg position. The path of the internal jugular vein was verified by ultrasound and marked. I gloved and gowned while his neck was prepped with chlorhexidine. Maximal barrier was placed. An 18- gauge needle was used to cannulate the IJ internal jugular. This occurred on the first pass. The wire was threaded without difficulty with brief, nonsustained ectopy noted. A dilator was then passed, and 8.5-Armenian quadruple- lumen 16-cm catheter was then threaded over the wire into its hub. Wire was withdrawn. All lumens were flushed and ermias freely. CVP central venous pressure was measured at 8.1 transduced. This was sutured in place with 2-0 silk and covered with sterile Tegaderm and 2 x 2's.At that point, the patient's right arm was extended, dorsiflexed, and an arterial line was placed by Annia Soto without difficulty that appeared to be on the first pass. Thank you very much for allowing me to participate in Mr. Marc' care. If PATIENT'S NAME: NEVILLE MARC [facility] AGE: 70 Y [address] ROOM: [place] [address] [facility] ADMIT DATE: 10/15/2016 OR/Procedure Report DISCHARGE DATE: FAMILY PHYSICIAN: YOLIE DERAS MD ATTENDING PHYSICIAN: Isaiah Aclantara you have any questions regarding these lines, please do not hesitate to call. JEFF L MD AMRIT YI/rubiol /[id number] d: 10/15/162204 t: 10/24/16 1223, OPERATIVE SUMMARY
--- NOTE | ~2016-10-14 | OR ---
PATIENT'S NAME: TONYA MARC [facility] AGE: 70 Y [address] ROOM: [place] [address] LOCATION: GPCU ADMIT DATE: 10/15/2016 OR/Procedure Report DISCHARGE DATE: FAMILY PHYSICIAN: YOLIE DERAS MD ATTENDING PHYSICIAN: Isaiah Alcantara SURGEON: Isaiah Alcantara DO ELECTRIC SIGN WIRER: DATE OF PROCEDURE: 10/15/2016 PREOPERATIVE DIAGNOSIS: Hydropneumothorax with trapped lung. POSTOPERATIVE DIAGNOSIS: Hydropneumothorax with trapped lung. PROCEDURE PERFORMED: Right thoracotomy with decortication. BRIEF HISTORY: Mr. Marc is status post thoracotomy with left lower lobectomy secondary to ruptured abscess. He has developed a hydropneumothorax with trapped lung. He is approximately 6 weeks off from his previous surgery. DESCRIPTION OF PROCEDURE: His previous left thoracotomy was opened. The incision was opened. Dissection was carried out to the intercostal space with electrocautery. We entered below the previous thoracotomy intercostal incision. Dissection was carried out carefully, and a Finochietto retractor was placed. The left upper lobe was trapped. Very small amount of pleural fluid was evacuated and sent for culture. Total decortication was carried out to the pleural space. The left upper lobe was heavily consolidated, but did have better ventilation than previous. Three chest tubes were placed through separate stab incisions. The intercostal incision was closed with 3 figure-of- eight cable system, and soft tissues closed in a running fashion with 0 Vicryl, 2-0 Vicryl, and 4-0 Monocryl. The patient tolerated the procedure well. Chest tubes were placed to suction. He was extubated and transferred to the recovery room in stable condition. DO CARLOS LOGAN/rubiol /[id number] d: 10/30/16 1814 t: 10/31/16919, OPERATIVE SUMMARY
--- NOTE | ~2016-10-14 | DS ---
PATIENT'S NAME: TONYA HOFFMANN [facility] AGE: 70 Y [address] ROOM: [id number] [place], [place] [address] LOCATION: GPCU ADMIT DATE: 10/15/2016 Discharge Summary DISCHARGE DATE: FAMILY PHYSICIAN: Tri Serrano MD ATTENDING PHYSICIAN: Isaiah Alcantara DISCHARGE/TRANSFER SUMMARY BRIEF HISTORY AND HOSPITAL COURSE: The patient is a 70-year-old male with severe COPD, emphysema, and chronic cigarette smoking until the late part of last year, who was admitted in May of 2016 with a spontaneous left pneumothorax. He was treated successfully with chest tubes alone. He had been treated with antibiotics for Klebsiella and Serratia pneumonia. He had undergone some outpatient cardiopulmonary workup including a transthoracic echocardiogram in June of 2016 which showed severe pulmonary hypertension with a PA pressure of 70 and moderate tricuspid regurgitation. In July of 2016, he underwent a cardiac nuclear stress test which showed a medium-sized inferolateral fixed defect, no ischemia, and normal EF and wall motion. He had undergone a right heart catheterization on August 28 of this year which only showed mild pulmonary hypertension with a mean PA pressure of 26. It was felt that having started him on home O2 had ameliorated his severe pulmonary hypertension. He then became ill and was admitted back to the hospital for a left lower lobe abscess which had ruptured into his pleural space causing severe empyema and a large hemothorax. He was taken to the operating room on September 01 underwent left posterolateral thoracotomy with decortication and drainage of a 2 L hemothorax. It was felt by the surgeon that his left lower lobe was completely destroyed because of a softball size abscess which had ruptured and left lower lobectomy was performed. He ultimately recovered and was sent home, but was then readmitted for a recurrent hydropneumothorax. On September 22, a PleurX catheter was placed in the operating room, which never functioned well. Ultimately, he had to be readmitted and on October 15, he underwent a redo left thoracotomy with total decortication. Intraoperative findings were of a trapped left upper lobe and consolidation which was significant. Surgeon stated in his operative note, the left upper lobe expanded better than before the decortication but did not expand well due to consolidation. At that time, three chest tubes were placed, two were ultimately removed and he was left with one Clement drain. He grew multidrug resistant Pseudomonas aeruginosa and was managed by infectious disease consultants from the [facility] in [place], who consult here. He had a persistent air leak which trailed off. At that time, I took over the service, the patient had only a small air leak with cough and was on -20 cm of suction. His chest x-ray showed significant shift of the trachea to the left consistent with volume loss and lobectomy. There was also what appeared to be a space superolaterally and possibly inferiorly. Because he only had a small air leak with coughing only, I tried him on water seal. By the next morning, his chest PATIENT'S NAME: TONYA HOFFMANN [facility] AGE: 70 Y [address] ROOM: [place] [address] [facility] ADMIT DATE: 10/15/2016 Discharge Summary DISCHARGE DATE: FAMILY PHYSICIAN: Tri Serrano MD ATTENDING PHYSICIAN: Isaiah Alcantara x-ray did not look any different but there was a very large amount of tidal lately and more air leak with cough. Additionally, the patient stated that he developed coughing while he was on water seal. He was placed back to suction. 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 I am not sure whether his left upper lobe is even functioning. I have spoken to the thoracic surgery staff in [place] who has accepted the patient to evaluate him for potential candidacy for redo thoracotomy and either completion lobectomy or not with muscle flap to the left pleural space. If he is felt not to be a candidate for further surgery, this unfortunate gentleman maybe only a candidate for hospice. The last 3-4 days of the patient's admission here he developed atrial fibrillation for which he was placed on IV amiodarone and given several boluses without success in converting him. At the time of discharge, he was converted to oral amiodarone and he is prophylactic subcu heparin was switched to full dose daily Lovenox. PAST MEDICAL HISTORY: Steroid-dependent COPD, emphysema, home O2, history of cigarette smoking, back pain, migraines, hypertension. DISCHARGE MEDICATIONS: 1. Dulera 200/5 two puffs b.i.d. 2. DuoNeb's q.6 hours. 3. Amiodarone 400 mg b.i.d. 4. Lovenox 60 mg subcu daily. 5. Aspirin 81 mg p.o. daily. 6. Prednisone 10 mg p.o. daily. 7. Florastor 250 mg p.o. b.i.d. 8. Mucinex 1200 mg p.o. b.i.d. 9. Potassium chloride 20 mEq p.o. b.i.d. 10. K-Phos 250 one tab p.o. b.i.d. 11. Lexapro 20 mg daily. 12. Lipitor 40 mg daily. 13. Lopressor 50 mg p.o. b.i.d. 14. Mag-Ox 400 p.o. t.i.d. 15. MiraLAX 17 g p.o. h.s. 16. MS Contin 15 mg p.o. h.s. 17. Norvasc 2.5 mg daily. 18. Nystatin swish and swallow 5 mL q.i.d. 19. Pepcid 20 mg p.o. daily. 20. Vitamin C 1 g daily. 21. Ambien 10 mg p.o. q.h.s. p.r.n. 22. Imitrex 100 mg p.o. daily p.r.n. 23. Imodium 4 mg daily p.r.n. diarrhea. 24. MOM 30 mL p.o. daily p.r.n. 25. Webster 5 one p.o. q.4 hours p.r.n. moderate pain. PATIENT'S NAME: TONYA HOFFMANN [facility] AGE: 70 Y [address] ROOM: [place] [address] [facility] ADMIT DATE: 10/15/2016 Discharge Summary DISCHARGE DATE: FAMILY PHYSICIAN: Tri Serrano MD ATTENDING PHYSICIAN: Isaiah Alcantara 26. Webster 5 two p.o. q.4 hours p.r.n. severe pain. 27. Xanax 0.25 mg p.o. t.i.d. p.r.n. anxiety. 28. Dulcolax suppositories p.r.n. ACCEPTING PHYSICIAN: Dr. Dozier, Thoracic Surgery [place]. Other details of prior admissions and histories such as social history, work history, etc., are found in the accompanying records sent with this discharge summary. MD MANPREET JONES/maria eugenia /[id number] d: 11/13/16 1101 t: 11/14/16 0822, DISCHARGE SUMMARY
--- NOTE | ~2016-10-14 | HP ---
PATIENT'S NAME: TONYA HOFFMANN [facility] AGE: 71 Y [address] ROOM: [place] [address] LOCATION: GPCU ADMIT DATE: 10/15/2016 History & Physical DISCHARGE DATE: 11/13/2016 FAMILY PHYSICIAN: Tri Serrano MD ATTENDING PHYSICIAN: Isaiah Manzano DATE OF SERVICE: HISTORY OF PRESENT ILLNESS: The patient is a 71-year-old white male, who presented this morning from [place], so that he could undergo a left thoracotomy with decortication. The patient was a recent discharge from our hospital from a subsequent admission. On September 22, 2016, he had a left PleurX catheter placed. His history is significant for severe COPD with emphysema, recurrent spontaneous left pneumothorax, and a recent left lower lobe abscess which ruptured into his pleural space causing a severe empyema and a large hemothorax. He has never fully recovered from this and complications have been for a multidrug resistant Pseudomonas. Please see previous H and P's, consults, and discharge summaries. The patient was home with home health care service with a left- sided PleurX drain in place. The drain did quit producing. The patient was seen by his infectious disease physician, Dr. Meadows. A CT scan was performed. The scan demonstrated a left-sided trapped lung, and therefore, the patient presents this morning for surgical remediation. PAST MEDICAL HISTORY: Illnesses: COPD, emphysema, history of tobaccoism, hypertension, migraine headaches. SURGERIES/PROCEDURES: Brain cyst removal, cholecystectomy, appendectomy, bilateral carpal tunnel release. ALLERGIES: DALIRESP. SOCIAL HISTORY: The patient is . He is retired. He has grown children. He has no history of alcohol abuse. He was a long-term smoker having quit recently. FAMILY HISTORY: Significant for mother having lung cancer and father with diabetes. ADMISSION MEDICATIONS: 1. Advair 500/50 one puff per inhalation b.i.d. 2. Ambien 10 mg at h.s. PATIENT'S NAME: TONYA HOFFMANN [facility] AGE: 71 Y [address] ROOM: [place] [address] LOCATION: GPCU ADMIT DATE: 10/15/2016 History & Physical DISCHARGE DATE: 11/13/2016 FAMILY PHYSICIAN: Tri Serrano MD ATTENDING PHYSICIAN: Isaiah Manzano 3. MS Contin 15 mg at h.s. 4. Zanaflex 4 mg q.12 hours p.r.n. muscle spasms. 5. Aspirin 81 mg daily. 6. Imodium 4 mg p.o. daily/p.r.n. Diarrhea. 7. Oxygen 2 L continuous. 8. Ipratropium/albuterol per nebulizer q.i.d. 9. Imitrex 100 mg p.r.n. migraines. 10. Ultram 50 mg q.8 hours p.r.n. pain. 11. Prednisone 10 mg p.o. q.a.m. 12. Vitamin C 1000 mg q.a.m. 13. Promethazine with Codeine 5 mL q.i.d./p.r.n. Cough. 14. Humibid LA 1200 mg b.i.d. 15. Sulphur 5/325 one to two every 4-6 hours p.r.n. pain. 16. Tudorza one puff per inhalation b.i.d. 17. Lipitor 40 mg daily. 18. Potassium gluconate 99 mg b.i.d. 19. Proventil 2 puffs per inhalation q.6 hours p.r.n. 20. Lexapro 20 mg daily. 21. Florastor 250 mg b.i.d. 22. Bactrim DS one tab b.i.d. 23. Xanax 0.25 mg q.8 hours p.r.n. anxiety. SYSTEM REVIEW: As per HPI. System review negative except for the pertinent positives in HPI. PHYSICAL EXAMINATION: Upon admission, VITAL SIGNS: Blood pressure 143/69, pulse 78, respirations 28, temp 98.1, height is 170 cm in height, weight is 60 kg. Physical exam deferred for the patient transferring into surgery. IMPRESSION AND PLAN: I will plan for a left thoracotomy with decortication along with chest tube placement at the time of the procedure. We will transfer the patient to the floor as an inpatient and continue to monitor progress thereafter. RASHAUN LYONS APRN FOR ISAIAH MANZANO DO DLQ/modl /[id number] D: [id number] T: [id number] HISTORY & PHYSICAL
--- NOTE | ~2016-10-14 | CON ---
PATIENT'S NAME: TONYA MARC [facility] AGE: 70 Y [address] ROOM: [address] [place] [address] LOCATION: GPCU ADMIT DATE: 10/15/2016 Consultation DISCHARGE DATE: FAMILY PHYSICIAN: YOLIE DERAS MD ATTENDING PHYSICIAN: Isaiah Alcantara DATE OF CONSULTATION: 11/12/2016 REFERRING PHYSICIAN: Yulissa Modi MD REQUESTING PHYSICIAN: Jose Antonio Casarez MD Dear Dr. Casarez: Thank you for asking me to see Mr. Marc who had paroxysmal atrial fibrillation in the past. He was initially hospitalized in May 2016 with a spontaneous pneumothorax at which time he went into atrial fibrillation with rapid ventricular response. Since then, he has been on paroxysmal atrial fibrillation with [id number] score of about 3. He is quite asymptomatic of it even with fairly fast heart beat. Initially, the patient was on amiodarone and went back to regular sinus rhythm spontaneously, I think. He had severe pulmonary hypertension. This improved significantly with just oxygen therapy for his severe COPD. He recently quit smoking. Since his pneumothorax in May, he has had numerous other problems with his left-sided lung. He had a medium-sized inferolateral fixed defect without ischemia and normal EF and wall motion in July of 2016. After he had been on oxygen for a while, his mean pulmonary artery pressure had dropped down to 26. He became ill after that, had severe empyema and a hemothorax, has had a few surgeries since then, and now looking at another surgery in [place]. About 4 days ago, he went back into atrial fibrillation with rapid ventricular response. Dr. Alcantara had already started him on amiodarone IV, and his heart rate is now currently reasonably under control in the 90s when he is resting. He denies any chest pains or shortness of breath. He is not lightheaded or dizzy and does not have any ankle swelling. The patient has a history of hypertension, and he quit smoking very recently. His lipids are unknown. He is not diabetic and has no family history of premature coronary artery disease. There is no history of congestive heart failure, rheumatic fever, or AL. MEDICATIONS: His list of medications at this time includes: PATIENT'S NAME: TONYA MARC [facility] AGE: 70 Y [address] ROOM: [place] [address] LOCATION: GPCU ADMIT DATE: 10/15/2016 Consultation DISCHARGE DATE: FAMILY PHYSICIAN: YOLIE DERAS MD ATTENDING PHYSICIAN: Isaiah Alcantara 1. Amiodarone IV. 2. Heparin subcu. 3. Metoprolol 50 b.i.d. 4. Ipratropium. 5. Potassium phosphate. 6. Famotidine. 7. Magnesium. 8. Amlodipine 2.5 mg a day. 9. Chlorpromazine. 10. Aspirin 81 mg a day. 11. Morphine. 12. Alprazolam. 13. Prednisone 10 once a day. 14. Atorvastatin 40 mg a day. 15. Ascorbic acid 1 g daily. 16. Zolpidem. 17. Tizanidine hydrochloride 4 mg every 12 hours. 18. Sumatriptan 100 mg every day p.r.n. 19. All of his other p.r.n. medications which include magnesium, metoclopramide, acetaminophen, and loperamide. ALLERGIES: ROFLUMILAST, WHICH IS DALIRESP. PAST MEDICAL HISTORY: 1. 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 2. Cholecystectomy. 3. Appendectomy. 4. Bilateral carpal tunnel syndrome surgery. 5. History of migraine headaches. 6. Corrective lenses. 7. Severe COPD. 8. Chronic backache secondary to scoliosis. SOCIAL HISTORY: The patient is . He denies abusing alcohol. Sleep is fair. FAMILY HISTORY: Premature coronary artery disease. REVIEW OF SYSTEMS: History of cleft lip. PHYSICAL EXAMINATION: VITAL SIGNS: His blood pressure is 130s over 80s, heart rate is in the 90s PATIENT'S NAME: TONYA MARC [facility] AGE: 70 Y [address] ROOM: [place] [address] LOCATION: GPCU ADMIT DATE: 10/15/2016 Consultation DISCHARGE DATE: FAMILY PHYSICIAN: YOLIE DERAS MD ATTENDING PHYSICIAN: Isaiah Alcantara and irregular, and respirations are 18. HEENT: Normal. NECK: Supple with no JVD, thyromegaly, lymphadenopathy, or carotid bruit. CARDIAC: PMI is not well located. First and second heart sounds are regular. There are no added sounds or murmurs. CHEST. Clear to auscultation on the right side. Left side, air entry is very poor. EXTREMITIES: No edema. CENTRAL NERVOUS SYSTEM: Overall, appears to be intact. ASSESSMENT: 1. Recurring infection in the left hemothorax following his pneumothorax earlier. 2. Severe pulmonary hypertension, which is mostly improved after being on oxygen. 3. Severe chronic obstructive pulmonary disease. 4. History of possible transient ischemic attack, syncope, or overdose of pain medications. 5. Mild left ventricular hypertrophy. 6. Normal ejection fraction. 7. Chronic pain syndrome. 8. His stress test in July did not show any ischemia. He had some fixed defect in the inferior wall. RECOMMENDATIONS: Continue all the current medications. His Lovenox probably should be twice a day, and I will discuss that with Dr. Casarez before his transfer. His heart rate is currently under control, and he is asymptomatic even though he is on amiodarone for now. About a month down the line, Cardioverting him back to regular sinus will not be a bad idea for him. We will plan on seeing him as an outpatient in about a month or so if he does not go back to being in regular sinus rhythm. MD PRIYA KUMAR/maria eugenia /[id number] d: 11/13/16 1331 t: 11/18/16 1234, CONSULTATION REPORT
--- NOTE | ~2016-10-14 | CON ---
PATIENT'S NAME: NEVILLE HOFFMANN [facility] AGE: 70 Y [address] ROOM: [place] [address] LOCATION: GPCU ADMIT DATE: 10/15/2016 Consultation DISCHARGE DATE: FAMILY PHYSICIAN: YOLIE DERAS MD ATTENDING PHYSICIAN: Isaiah Alcantara DATE OF CONSULTATION: 10/22/2016 INFECTIOUS DISEASE CONSULTATION REQUESTING PHYSICIAN: Consultation is request by Dr. Isaiah Alcantara. REASON FOR CONSULTATION: Empyema with resistant Pseudomonas organisms. HISTORY OF PRESENT ILLNESS: Neville is a pleasant 70-year-old male, whom I am asked to see today in consultation by Dr. Alcantara for further evaluation and treatment recommendations regarding resistant Pseudomonas infection. Neville was admitted this admission on 10/14/2016. He previously had a prolonged hospitalization for left lower lobe lung abscess and empyema, which was treated with left lower lobe lobectomy and decortication on 09/01/2016. He had multiple cultures positive for Pseudomonas, among other organisms, and he was discharged on levofloxacin. At the time of this admission, he was found to have a recurrence of an empyema with loculation, and he underwent a second operative procedure on 10/15/2016, with decortication. Cultures are currently growing multiply drug-resistent (MDR) Pseudomonas isolates, as noted below. He has a history of severe COPD with emphysema and recurrent pneumonias. He has had Klebsiella and Serratia in the past. He also has a diagnosis of pulmonary hypertension. His current antibiotics are ceftazidime, tobramycin, and metronidazole. PAST MEDICAL HISTORY: As above, also hypertension, chronic back pain, migraine, and history of smoking. ALLERGIES: DALIRESP. CURRENT MEDICATIONS: See the MAR for complete listing. His current antibiotics are as noted above. SOCIAL HISTORY: He is and has a long history of smoking, but stopped last year. There PATIENT'S NAME: NEVILLE HOFFMANN [facility] AGE: 70 Y [address] ROOM: [place] [address] LOCATION: GPCU ADMIT DATE: 10/15/2016 Consultation DISCHARGE DATE: FAMILY PHYSICIAN: YOLIE DERAS MD ATTENDING PHYSICIAN: Isaiah Alcantara is no history of alcohol abuse to my knowledge. FAMILY HISTORY: Significant for lung cancer and diabetes. REVIEW OF SYSTEMS: A complete review of systems was carried out and was remarkable only as noted. Please refer to the admission history and physical for further details. PHYSICAL EXAMINATION: GENERAL APPEARANCE: He appeared pleasant and comfortable and is in no distress. He is on oxygen via nasal cannula. VITAL SIGNS: Temperature is 36.4, blood pressure 122/70, and pulse is 90. HEENT: Posterior pharynx clear, no adenopathy or thyromegaly. Cranial nerves are intact. NECK: Supple. CHEST: A few rales and rhonchi, and dullness is noted at the left lung base. A chest tube is present with serosanguineous drainage. CARDIOVASCULAR: Regular rate and rhythm without S3, S4, or murmur. ABDOMEN: Soft, nontender, without hepatosplenomegaly or masses. EXTREMITIES: Unremarkable. No synovitis or rashes. PSYCHIATRIC: Behavior and affect are appropriate. NEUROLOGIC: Strength and sensation grossly intact, global strength slightly diminished. LABORATORY AND MICROBIOLOGY DATA: Creatinine is 0.8, liver function tests are normal. White count 13.5. Microbiology - The left lung cultures on 10/15/2016, show multiple Pseudomonas isolates, extremely resistant - all isolates were sensitive or intermediately susceptible to tobramycin. Please refer to the laboratory report for details. Cultures were also positive for Fusobacterium and Prevotella species. Prior cultures showed the same organisms. There was a single positive culture for Stenotrophomonas and Page albicans on 10/03/2016. IMAGING STUDIES: Radiology - A chest x-ray on 10/22/2016 shows a left thoracotomy with chest tubes, improvement in right upper lobe parenchymal infiltrate. 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 We have requested susceptibilities from the [facility] referral microbiology laboratory for the following drugs: Colistin, aztreonam, Zerbaxa, and Avycaz. PATIENT'S NAME: NEVILLE HOFFMANN [facility] AGE: 70 Y [address] ROOM: [id number] [place] [id number] LOCATION: [facility] ADMIT DATE: 10/15/2016 Consultation DISCHARGE DATE: FAMILY PHYSICIAN: YOLIE DERAS MD ATTENDING PHYSICIAN: Isaiah Alcantara As colistin generally has the best activity against these highly resistant Pseudomonas isolates, we will start this antibiotics. The isolates are also generally susceptible or intermediate to tobramycin, so this would be useful in conjunction. Fortunately, he appears to have preserved renal function at this time, although the potential for nephrotoxicity is significant and should be monitored carefully. Other diagnoses are as noted above in the past medical history, including advanced emphysema. PLAN: We will mold changer to colistin 2.5 mg per kg every 12 hours, tobramycin 3 mg per kg every 24 hours, and metronidazole 500 mg orally every 8 hours. I would anticipate a minimum of 2 weeks, and likely longer. I would recommend at least twice weekly creatinines while he is on this regimen, and adjust the doses as needed - I did discuss the regimen and dosing with Pharmacy, who will assist with monitoring. If he continues to have significant fluid output from the chest tubes and if he does not make fairly rapid progress, I would strongly consider referral to a Tertiary Care Center such as [facility] or the [facility], given the gravity of his situation and the difficulty we would have dealing with these multiply resistant organisms. Thank you for this consultation. I am available to discuss the case by phone at [phone]. MD RIKY MERCEDES/maria eugenia /[id number] CC: Isaiah Alcantara DO d: 10/22/16 2101 t: 10/23/16 0824, CONSULTATION REPORT
[~2016-10-14 17:00] MED LIST changes: +BACTRIM DS1 TAB PO; +CLEOCIN150 MG PO; +FORTAZ2 GM IV; +HYZAAR 50-12.51 EACH PO; +LEXAPRO20 MG PO; +LIPITOR40 MG PO; +NORCO 5-325 TA1 EACH PO; +POTASSIUM99 M1; +PROVENTIL OR V6.7 GM INH; +TOBRAMYCIN IV; +TUDORZA PRESS400 MCG INH; +[UNRECOGNIZED DRUG - OTHER] IV; +[UNRECOGNIZED DRUG - OTHER] IV
[2016-10-14] MEDS ORDERED: FLORASTOR250 MG PO (17:21)
[2016-10-14] MEDS ORDERED: XANAX0.25 MG PO (17:25)
[2016-10-14] MEDS ORDERED: OXYGEN M-15 INH (17:27)
[2016-10-15 07:56] LABS: BASOPHIL % 0.2 %; EOSINOPHIL # 0.2 K/uL (0.0-0.5); HEMATOCRIT 35.5 % (37.0-53.0); HEMOGLOBIN 11.1 g/dL (11.0-16.0); IMMATURE GRANULOCYTE # 0.2 K/uL (0.0-0.3); IMMATURE GRANULOCYTE % 2.2 %; LYMPHOCYTE # 1.4 K/uL (0.8-4.0); LYMPHOCYTE % 16.6 %; MCH 27.7 pg (27.0-34.0); MCHC 31.3 gm/dL (32.0-36.5); MCV 88.5 fl (83.0-98.0); MONOCYTE # 0.9 K/uL (0.0-1.0); MONOCYTE % 10.4 %; MPV 8.6 fl (9.4-12.4); NEUTROPHIL # (ANC) 5.9 K/uL (1.4-9.0); NEUTROPHIL % 68.6 %; NRBC % 0 /100WBC (0-0.00); RBC 4.01 M/uL (3.50-5.50); RDW-CV 17.3 % (11.9-14.6); WBC 8.6 K/uL (4.0-11.0)
[2016-10-15 07:57] LABS: PLATELET COUNT 223 K/uL (150-450)
[2016-10-15 08:07] LABS: PROTIME 10.4 SECONDS (9.6-11.1)
[2016-10-15 08:09] LABS: ALBUMIN 2.8 gm/dL (3.5-5.0); BLOOD UREA NITROGEN 15 mg/dL (6-24); CALCIUM 9.1 mg/dL (8.5-10.5); CHLORIDE 98 mMol/L (96-110); CO2 29 mMol/L (22-32); CREATININE 0.9 mg/dL (0.6-1.3); ESTIMATED GFR (MDRD EQUATION) > 60; PHOSPHORUS 4.2 mg/dL (2.5-4.9); SODIUM 136 mMol/L (135-145)
[2016-10-15 12:22] LABS: HEMOGLOBIN 8.4 g/dL (11.0-16.0)
[2016-10-15 12:24] LABS: HEMATOCRIT 26.5 % (37.0-53.0)
--- NOTE | 2016-10-15 17:53 | NUR ---
Significant Event: SLEEPY. LEFT LATERAL CHEST THORACOTOMY SITE COVERED WITH GAUZE & TRANSPARENT, D/I. LEFT SIDED CHEST TUBES X3 INTO ONE AZEEM TO 20 ML WALL SUCTION. SYSTEM CHANGED UPON ARRIVING TO FLOOR D/T TIPPING OVER. CONTINOUS BUBBLING AND TIDALING. 3L O2 NC, LUNGS COARSE T/O. C/O PAIN TO LEFT CHEST, AGGRAVATED BY SUCTION. MORPHINE WOODWINDS TEACHER INFUSING TO LEFT FA PIV, 26 DEMANDS WITH 18 DELIVERED. ETCO2 MONITOR ON. RIGHT UPPER FA DUAL LUMEN PICC LINE SL'D. RIGHT QUAD LUMEN IJ SL'D. COMPLETED BLOOD TRANSFUSION. INTERMITTENT IV ANTIBIOTICS. D5 1/2 NS @ 50 ML/HR. MOSES CATHETER PATENT. Follow up: CONTINUE TO MONITOR. CHEST X-RAY IN AM.
--- NOTE | 2016-10-16 05:04 | NUR ---
A/O. HR 80-100s. SBP 90-110s. AFEBRILE. 4L O2 NC. R) IJ. R) UPPER ARM PICC. L) PIV RUNNING MORHINE CORK PRESSING MACHINE OPERATOR DEMAND ONLY 1MG/8MIN. 23ATTEMPTS/ 23DELIVERIES. NORCO 2 TABx1. TURN 2QHR WHILE IN BED. MOSES INTACT 300ML UOP. L) CHEST TUBE TO SUCTION 770ML OUTPUT. LARGE AIR LEAK AWARE. NO CREPITIS NOTED. NO BM.
[2016-10-16 05:09] LABS: ALBUMIN 2.5 gm/dL (3.5-5.0); ANION GAP 19.6 (10.0-19.0); CALCIUM 8.1 mg/dL (8.5-10.5); PHOSPHORUS 5.9 mg/dL (2.5-4.9); POTASSIUM 4.6 mMol/L (3.7-5.1)
[2016-10-16 05:11] LABS: CREATININE 1.5 mg/dL (0.6-1.3)
[2016-10-16 05:16] LABS: BASOPHIL % 0.2 %; EOSINOPHIL # 0.1 K/uL (0.0-0.5); EOSINOPHIL % 0.3 %; HEMATOCRIT 26.3 % (37.0-53.0); HEMOGLOBIN 8.3 g/dL (11.0-16.0); IMMATURE GRANULOCYTE # 0.3 K/uL (0.0-0.3); IMMATURE GRANULOCYTE % 1.7 %; LYMPHOCYTE # 1.1 K/uL (0.8-4.0); LYMPHOCYTE % 6.2 %; MCH 28.8 pg (27.0-34.0); MCHC 31.6 gm/dL (32.0-36.5); MCV 91.3 fl (83.0-98.0); MONOCYTE # 1.8 K/uL (0.0-1.0); MONOCYTE % 9.9 %; MPV 8.9 fl (9.4-12.4); NEUTROPHIL # (ANC) 14.8 K/uL (1.4-9.0); NEUTROPHIL % 81.7 %; NRBC % 0 /100WBC (0-0.00); PLATELET COUNT 212 K/uL (150-450); RDW-CV 16.2 % (11.9-14.6)
[2016-10-16 05:22] LABS: RBC 2.88 M/uL (3.50-5.50)
--- NOTE | 2016-10-16 12:33 | NUR ---
Introduced self and role of care management to patient and . They are very familiar with me from his last 2 visits. They live in [place]. Patients states that patient had been doing fairly well since going home. He was able to get up and do some of his own ADL's. He did ambulate around the home. He was tolerating the outpatient IV therapy fine. They plan on returning home on discharge. He denies any needs at this time. Will continue to follow.
[2016-10-16 12:38] LABS: ALBUMIN 2.5 gm/dL (3.5-5.0); ANION GAP 16.9 (10.0-19.0); CALCIUM 8.1 mg/dL (8.5-10.5); CREATININE 1.7 mg/dL (0.6-1.3); PHOSPHORUS 6.7 mg/dL (2.5-4.9); POTASSIUM 4.9 mMol/L (3.7-5.1)
--- NOTE | 2016-10-16 15:47 | NUR ---
Significant Event: PATIENT HAD A DIFFICULTY DAY. THIS AM SBP 108. THOUGHOUT MORNING BECAME HYPOTENSIVE. CREATININE UP. IV ABT CHANGED AROUND. PATIENT RECIEVED IV ALBUMIN AND 500 ML NS BOLUS. IVF INCREASED TO 100ML/HR. 1 UPRB INFUSING AT THIS TIME. THIS AM PATIENT COMPLAINING OF PAIN HOWEVER NOW IS CONTROLLED. ID CONSULT. MOSES WITH 150ML OUTPUT. CHEST TUBE 525ML OUTPUT Follow up:
[2016-10-17 03:43] LABS: ALBUMIN 2.6 gm/dL (3.5-5.0); ANION GAP 14.6 (10.0-19.0); CALCIUM 7.9 mg/dL (8.5-10.5); CREATININE 1.6 mg/dL (0.6-1.3); PHOSPHORUS 5.2 mg/dL (2.5-4.9); POTASSIUM 4.6 mMol/L (3.7-5.1)
[2016-10-17 04:33] LABS: BASOPHIL % 0.2 %; EOSINOPHIL % 0.2 %; HEMATOCRIT 26.4 % (37.0-53.0); HEMOGLOBIN 8.6 g/dL (11.0-16.0); IMMATURE GRANULOCYTE # 0.3 K/uL (0.0-0.3); IMMATURE GRANULOCYTE % 1.5 %; LYMPHOCYTE # 0.8 K/uL (0.8-4.0); LYMPHOCYTE % 3.9 %; MCH 29.9 pg (27.0-34.0); MCHC 32.6 gm/dL (32.0-36.5); MCV 91.7 fl (83.0-98.0); MONOCYTE # 1.6 K/uL (0.0-1.0); MONOCYTE % 7.9 %; MPV 9.1 fl (9.4-12.4); NEUTROPHIL # (ANC) 17.1 K/uL (1.4-9.0); NEUTROPHIL % 86.3 %; NRBC % 0 /100WBC (0-0.00); PLATELET COUNT 194 K/uL (150-450); RBC 2.88 M/uL (3.50-5.50); RDW-CV 15.5 % (11.9-14.6)
[2016-10-17 04:36] LABS: WBC 19.8 K/uL (4.0-11.0)
--- NOTE | 2016-10-17 05:11 | NUR ---
A/O. HR 100-110s. SBP 90-110s. 6L 02 NC CURRENTLY. AFEBRILE. R) IJ. R) PICC. L) FA PIV. L) CT WITH 620ML OUTPUT. MOSES INTACT 225ML UOP. MORPHINE SCHOLASTIC APTITUDE TEST GRADER DEMAND ONLY 1MG 8MIN LOCKOUT. REPO 2Q AND PRN.
--- NOTE | 2016-10-17 16:24 | NUR ---
Significant Event: MUCH BETTER DAY. SBP 90-120. PATIENT UP IN CHAIR. IVF DECREASED TO 50. MOSES WITH 675 ML OUTPUT. 1MG BUMEX ADMINISTERED IV. PATIENT TRANSITIONING TO PO ANALGESICS. CHEST TUBE WITH 400ML OUTPUT. OXYGEN REMAINS ON 6L. CHEST XRAY IN AM Follow up:
--- NOTE | 2016-10-18 06:45 | NUR ---
Significant Event: Patient is alert and oriented to self, place, and year. Disoriented to time. Forgetful. Makes confused statements at times. HRs in the 100s-1 teens. SBPs in the 100s-1 teens. Afebrile. On 6L of O2 per nasal cannula. Up with 2 assist. Chest tube to left side hooked to low suction, 440 mls out this shift. Dressing to left lateral side is intact. Thakkar intact. 450 mls out this shift. On Morphine CHAIN PULLER with demand dose at 1 mg q 8 minute lockout, patient did not use CHAIN PULLER once. Received [place] for pain lastat 2207. Receives scheduled MS Contin. Right quad lumen IJ with D5 1/2 NS running at 50 ml/hr. Receiving intermittent antibiotics. Right double lumen upper arm PICC, SL. Left forearm IV, saline locked. Patient had 4 beat run of MD Keegan called. Renal and magnesium ordered to am labs. at the bedside. Continue to monitor. Follow up: Chest x-ray this am.
[2016-10-18 07:09] LABS: ALBUMIN 2.1 gm/dL (3.5-5.0); ANION GAP 11.7 (10.0-19.0); CREATININE 1.4 mg/dL (0.6-1.3); MAGNESIUM 1.6 mg/dL (1.3-2.6); PHOSPHORUS 2.6 mg/dL (2.5-4.9); POTASSIUM 3.7 mMol/L (3.7-5.1)
[2016-10-18 08:08] LABS: BASOPHIL % 0.2 %; EOSINOPHIL % 0.2 %; HEMATOCRIT 23.1 % (37.0-53.0); IMMATURE GRANULOCYTE # 0.2 K/uL (0.0-0.3); IMMATURE GRANULOCYTE % 1.3 %; LYMPHOCYTE # 0.6 K/uL (0.8-4.0); LYMPHOCYTE % 4.8 %; MCV 89.9 fl (83.0-98.0); MONOCYTE # 0.8 K/uL (0.0-1.0); MONOCYTE % 6.8 %; MPV 8.4 fl (9.4-12.4); NEUTROPHIL # (ANC) 10.4 K/uL (1.4-9.0); NEUTROPHIL % 86.7 %; NRBC % 0 /100WBC (0-0.00); RBC 2.57 M/uL (3.50-5.50); RDW-CV 15.6 % (11.9-14.6); WBC 11.9 K/uL (4.0-11.0)
[2016-10-18 08:13] LABS: HEMOGLOBIN 7.6 g/dL (11.0-16.0); MCH 29.6 pg (27.0-34.0); MCHC 32.9 gm/dL (32.0-36.5); PLATELET COUNT 141 K/uL (150-450)
--- NOTE | 2016-10-18 16:16 | NUR ---
Significant Event: PT A&O x3. VSS, O2 at 4-5L per nasal cannula. Dressing intact to L)chest. Chest tube x3 to left chest, air leak, MD aware, 240ml out this shift. Thakkar patent. Large BM this shift after MOM given. R)IJ patent, R)PICC patent. PT ambulates with walker, gait belt and 1-2 assist. PT needs encouraged to ambulate. Morphine CUSTOMER MANAGEMENT SPECIALIST dc'd per patient request. PT encouraged to cough/deep breathe and IS encouraged. at bedside. Follow up:
--- NOTE | 2016-10-18 22:02 | NUR ---
CONSULT RECEIVED FOR ENSURE ENLIVE TID. PT WAS RECEIVING ENSURE CLEAR TID. D/C ENSURE CLEAR TID AND ADDED ENSURE ENLIVE TID W/MEALS.
--- NOTE | 2016-10-19 05:32 | NUR ---
INTERMITTENT CONFUSION. TACHY 110-120'S, SBP 110'S. AFEBRILE. DOES NOT DO WELL WITH MOVEMENT OF ANY KIND. BECOMES VERY TACHYPENIC, PURSED LIP BREATHING, EXCESSORY MUSCLE BREATHING. TAKES A LONG TIME TO RECOVER-O2 SATS DON'T DROP JUST OVERALL PT DOES NOT DO WELL. C/O LOTS OF BACK PAIN/CHRONIC VS ACUTE. CT WITH 400 OUT. LARGE DIARREHA BM. LFA IV REMOVED PER PT REQUEST. CONT WITH RIJ/DOUBLE LUMEN PICC. D5 1/2 NS AT 50 NFUSING IN BLUE PORT. PICC SL. NORCO GIVEN AT 0500 1 TAB, 2 TABS AT MN, AND 1 TAB AT 1800 YEST. PT DOES BETTER WITH 1 TAB IF CAN BE GIVEN Q4-5 HOURS. ALSO GETS MSCOTIN AT HS PLAN: CON'T ON IV ABX, CONT PLAN OF CARE
--- NOTE | 2016-10-19 06:58 | NUR ---
PATIENT NOTED TO HAVE HEART RATE OVER 200, WHEN NURSE ARRIVED IN ROOM PATIENT HAD JUST FINISHED A BREATHING TREATMENT. DR. MANZANO WAS CALLED AT THIS TIME. RECIEVED ORDERS FOR AN AMIODARONE BOLUS OF 150 AND THEN A DRIP PER PROTOCOL. PATIENTS RR AT THIS TIME WAS 48 OXYGEN WAS INCREASED TO 5 LI PER NC. PATIENTS WAS IN THE ROOM. PATIENT STATED HE FELT ANXIOUS XANAX WAS GIVEN FOR THIS ANXIETY. PATIENT RESTED FOR A FEW HOURS AFTER THE XANAX. HR CONTINUED TO BE ABOVE [address] MANZANO WAS NOTIFIED THAT HR CONTINUES TO BE HIGH. RECIEVED ANOTHER ORDER FOR AMIODARONE BOLUS AND 250MCG OF DIGOXIN. PATIENTS HEART RATE HAS CAME DOWN TO BELOW 130. HE IS CURRENTLY RESTING AND STATES HE FEEL BETTER. PATIENT HAS REFUSED MOST PO MEDS TODAY. PLEASE SEE MAR FOR TIMES OF MEDICATIONS. WE WILL CONTINUE TO MONITOR HR AND B/P THROUGHOUT HIS STAY.
[2016-10-19 07:51] LABS: MAGNESIUM 1.7 mg/dL (1.3-2.6); POTASSIUM 4.2 mMol/L (3.7-5.1)
--- NOTE | 2016-10-19 18:24 | NUR ---
PATIENT WENT INTO RAPID ATRIAL FIB WIT RVR THIS AM, AMIODARONE DRIP STARTED PATIENT RECEIVED 2 150MG BOLUSES FO AMIODARONE TODAY. DIGOXIN HAS BEEN GIVEN X2 TODAY AND IS TO RECIEVE A TOTAL OF 4 DOSES. PATIENTS HR IS CURRENTLY IN THE 120'S AND DR. MANZANO IS AWARE. PATIENT IS TOLERATING THIS HR AT THIS POINT. HE STATES HE FEELS BETTER NOW THEN HE HAS ALL DAY. PATIENT REFUSED ALL SCHEDULED PO PILLS TODAY.
[2016-10-19 23:03] LABS: ESTIMATED GFR (MDRD EQUATION) > 60
[2016-10-20 02:28] LABS: ALBUMIN 2.2 gm/dL (3.5-5.0); ALK PHOS 66 IU/L (33-138); ALT 32 IU/L (12-78); ANION GAP 14.9 (10.0-19.0); AST 37 IU/L (10-40); BLOOD UREA NITROGEN 22 mg/dL (6-24); CALCIUM 8.5 mg/dL (8.5-10.5); CHLORIDE 100 mMol/L (96-110); CO2 24 mMol/L (22-32); ESTIMATED GFR (MDRD EQUATION) > 60; MAGNESIUM 1.6 mg/dL (1.3-2.6); POTASSIUM 3.9 mMol/L (3.7-5.1); SODIUM 135 mMol/L (135-145); TOTAL BILIRUBIN 0.3 mg/dL (0.0-1.5); TOTAL PROTEIN 5.4 g/dL (6.0-8.4)
[2016-10-20 02:32] LABS: HEMATOCRIT 23.6 % (37.0-53.0); MCH 29.5 pg (27.0-34.0); MCHC 32.6 gm/dL (32.0-36.5); MCV 90.4 fl (83.0-98.0); MPV 9.2 fl (9.4-12.4); PLATELET COUNT 165 K/uL (150-450); RBC 2.61 M/uL (3.50-5.50); RDW-CV 15.9 % (11.9-14.6)
[2016-10-20 02:33] LABS: HEMOGLOBIN 7.7 g/dL (11.0-16.0)
[2016-10-20 03:33] LABS: ABSOLUTE NEUTROPHIL CT (ANC) 8.8 K/uL (1.4-9.0); BANDED NEUTROPHIL # 1.3 K/uL (0.0-0.1); BANDED NEUTROPHILS % 12 %; LYMPHOCYTE # 1.8 K/uL (0.8-4.0); LYMPHOCYTE % 16 %; MONOCYTE # 0.3 K/uL (0.0-1.0); SEGMENTED NEUTROPHIL # 7.5 K/uL (1.4-9.0); SEGMENTED NEUTROPHIL % 68 %
--- NOTE | 2016-10-20 05:15 | NUR ---
Pt alert, forgetful and occasionally disorientated. No norco given this shift- only gave ms contin at hs. Given xanax at hs. Had 0.5mg ivp ativan to keep bipap in place. Currently on bipap at 12/7 30% fio2. CT with 300 out-pleural vac changed last noc. Given 2MG iv bumex- had >1120 out. had bladder spasm and had large void as well as incontinent of stool this am. con't in afib 120-140's-cont on amio gtt through IJ. cont on D5 1/2 ns @ 50 with multiple IVabx. Currently using PICC in [facility] for blood draws-avoid abx as pt gets tobramycin peak/troughs drawn through picc. plan: con't current plan of care- brigidmathew wants pt to remain on bipap at this time. (have given 1/2 [address] breaks [address] then [address] back on and pt more compliant.)
[2016-10-20 08:31] LABS: BICARBONATE 24.3 mmol/L (18.0-23.0); PCO2 35 mmHg (35-45); PO2 59 mmHg (80-90)
--- NOTE | 2016-10-20 13:18 | NUR ---
A - NUT F/U. FORGETFUL/DISORIENTED. BIPAP. PICC. REFUSING MEDS @ TIMES. DECREASED APPETITE - SMALL AMOUNT OF FOOD ON LUNCH TRAY. LABS: GLU 131, ALB 2.2, PHOS 1.0, HGB/HCT 7.7/23.6 MEDS: NEBCIN, K+PHOS, TAZICEF, FLAGYL, FLORASTOR, PREDNISONE, PEPCID, LEXAPRO, REGLAN, D5NS, BOWEL/NAUSEA DIET: REG. INTAKE: 0-100%, AVG ~45% ENSURE TID NEEDS: [id number] KCAL, 59-71 G PRO D - INADEQUATE NUTRIENT INTAKE R/T DECREASED APPETITE AEB INTAKE RECORD. I - GOAL FOR INTAKR 50-75% BY NEXT ASSESSMENT. WILL ADD ENSURE PUDDING @ L&D. M/E - WILL MONITOR INTAKE F/U IN 3-5 DAYS.
--- NOTE | 2016-10-20 17:57 | NUR ---
PATIENT UP IN CHAIR W/ 2 ASSIST, TOLERATING WELL. SATS LOW 90'S ON 4L NC. HR IN A-FIB 110'S THIS AM. HR MAINTAINED 130'S THIS AFTERNOON, Reagan/ SERENA PAGE NOTIFIED, CARDIZEM GTT STARTED AT 5 MG/HR, INCREASED TO 10 MG/HR. HR DECREASED TO 110-110'S. PO AMIODARONE STARTED. AT BEDSIDE ASSISTING WITH CARES.
--- NOTE | 2016-10-21 04:43 | NUR ---
A/O. FORGETFUL AT TIMES. AFIB WITH CARDIZEM DRIP AT BEGINNING OF SHIFT. CONVERTED TO NORMAL SINUS AROUND 0040. HR NOW 80-90s. SBP 120-150s. 4L DURNING DAY. BIPAP AT NIGHT. PATIENT REQUEST TO HAVE AMBIEN EVERY NIGHT. CT WITH 260ML OUT CONNECTED TO SUCTION. MOSES INTACT 475ML UOP. DENIES NEED FOR PRN PAIN MEDICATION. 2A UP INTO CHAIR/COMMODE. BMx1 SOFT.
[2016-10-21 15:41] LABS: MAGNESIUM 1.3 mg/dL (1.3-2.6); POTASSIUM 3.3 mMol/L (3.7-5.1)
--- NOTE | 2016-10-21 17:15 | NUR ---
Significant Event: A/O BUT CAN BE FORGETFUL. HR IN 90S. SBP IN 130S-150S. ON 4L O2. WEARS BIPAP AT NIGHT. UP WITH 2 ASSIST TO COMMODE. BM X 1. MOSES DISCONTINUED. URINE OUTPUT OF 550ML. 1 TAB NORCO GIVEN AT [address] WITH 280ML OUT. PICC TO UPPER RIGHT ARM SL. RIGHT IJ, QUAD LUMEN.INITIATED IV IRON, 3 GRAMS IV MG X 1, 40MEQ KCL X1. Follow up:LABS IN MORNING.
[2016-10-21 23:05] LABS: BILIRUBIN URINE NEGATIVE (NEGATIVE); BLOOD URINE 50 /UL (NEGATIVE); COLOR URINE YELLOW (YELLOW); GLUCOSE URINE NEGATIVE (NEGATIVE); KETONE URINE 5 mg/dL (NEGATIVE); LEUKOCYTES URINE 25 /UL (NEGATIVE); NITRITE URINE NEGATIVE (NEGATIVE); PROTEIN URINE 30 mg/dL (NEGATIVE); TURBIDITY URINE CLEAR (CLEAR); UROBILINOGEN URINE NORMAL (NORMAL)
[2016-10-21 23:15] LABS: BACTERIA URINE NEGATIVE (NEGATIVE); EPITHELIAL URINE 0-2 #/HPF (NEGATIVE); GRANULAR CASTS URINE 0-2 #/LPF (NEGATIVE); HYALINE CAST URINE 0-2 #/LPF (NEGATIVE)
[2016-10-22 04:15] LABS: ALK PHOS 71 IU/L (33-138); ALT 26 IU/L (12-78); ANION GAP 12.3 (10.0-19.0); AST 27 IU/L (10-40); BLOOD UREA NITROGEN 20 mg/dL (6-24); CALCIUM 7.9 mg/dL (8.5-10.5); CHLORIDE 102 mMol/L (96-110); CO2 30 mMol/L (22-32); CREATININE 0.8 mg/dL (0.6-1.3); ESTIMATED GFR (MDRD EQUATION) > 60; MAGNESIUM 1.7 mg/dL (1.3-2.6); POTASSIUM 3.3 mMol/L (3.7-5.1); SODIUM 141 mMol/L (135-145); TOTAL BILIRUBIN 0.3 mg/dL (0.0-1.5)
[2016-10-22 04:18] LABS: ALBUMIN 1.9 gm/dL (3.5-5.0)
--- NOTE | 2016-10-22 04:46 | NUR ---
A/O. HR 90-100s. SBP 130-150s. 4L NC CURRENTY. WORE BIPAP FOR MAJORITY OF NIGHT. BLADDER SCAN AT 2230 613ML WITH NO VOIDS. STRAIGHT CATH WITH 300ML AT 2300. NO URGE TO VOID OF NOTE. D5 1/2NS AT 50ML/HR. R) IJ. R) UPPER ARM PICC. NO BM. 2A UP TO CHAIR. REPO 2Q. AMBIEN AND MS PO GIVEN AT HS. DENIES PAIN OTHERWISE.
[2016-10-22 05:07] LABS: MCH 29.3 pg (27.0-34.0); MCV 91.6 fl (83.0-98.0); MPV 9.1 fl (9.4-12.4); RBC 2.73 M/uL (3.50-5.50); RDW-CV 17.1 % (11.9-14.6); WBC 13.5 K/uL (4.0-11.0)
[2016-10-22 05:15] LABS: PLATELET COUNT 229 K/uL (150-450)
[2016-10-22 05:45] LABS: ABSOLUTE NEUTROPHIL CT (ANC) 11.8 K/uL (1.4-9.0); BANDED NEUTROPHIL # 1.4 K/uL (0.0-0.1); BANDED NEUTROPHILS % 10 %; LYMPHOCYTE # 0.7 K/uL (0.8-4.0); LYMPHOCYTE % 5 %; MONOCYTE # 0.4 K/uL (0.0-1.0); SEGMENTED NEUTROPHIL # 10.4 K/uL (1.4-9.0); SEGMENTED NEUTROPHIL % 77 %
--- NOTE | 2016-10-22 17:00 | NUR ---
PATIENT IS A/O BUT CAN BE FORGETFUL. VVS. ON 3L OF O2. WEARS BIPAP AT NIGHT. UP WITH 2 ASSIST TO COMMODE. BM X 1. PICC TO RIGHT UPPER ARM. RIGHT IJ. COMPLAINS OF CHEST PAIN WHEN COUGHING. WORKED WITH PT/OT TODAY. PUT INTO ISOLATION PER ID DOCTOR. ABX CHANGED. NEED STOOL SAMPLE FOR C-DIFF TEST.
--- NOTE | 2016-10-23 05:03 | NUR ---
Patient A/Ox3. VSS on 3L, Bipap HS. [address] 100ml/out. Lungs wheeze at time, clear diminished. CT to suction. Bowel sounds present, still need a cdiff sample. Blue x 1 with relief noted. at bedside. Poor appitite. IJ and PICC line saline locked.
--- NOTE | 2016-10-23 12:31 | NUR ---
Social visit with patient and today. He states that he is feeling better. Had just walked with PT. States he just feels weak. They are still planning for home on discharge. Will continue to follow.
--- NOTE | 2016-10-23 14:19 | NUR ---
A - NUT F/U. CHEST TUBE. APPETITE POOR. FORGETFUL LABS: K+ 3.3, GLU 116, ALB 1.9, WBC 13.5, HGB/HCT 8.0/25.0 MEDS: PEPCID, REGLAN, TOBRYAMYCIN, FLAGYL, KCL, K-PHOS, FLORASTOR, PREDNISONE, LEXAPRO, BOWEL/NAUSEA DIET: REG. INTAKE: 25-100% ENSURE TID. ENSURE PUDDING @ L&D NEEDS: 5724-1448 KCAL, 59-71 G PRO D - INADEQUATE NUTRIENT INTAKE R/T DECREASED APPETITE AEB INTAKE RECORD. I - GOAL FOR INTAKE 50-75% FOR DURATION OF STAY. WILL CONTINUE CURRENT SUPPLEMENTS. M/E - WILL MONITOR INTAKE. F/U IN 4-6 DAYS.
[2016-10-23 15:38] LABS: MAGNESIUM 1.6 mg/dL (1.3-2.6)
[2016-10-23 15:40] LABS: POTASSIUM 4.6 mMol/L (3.7-5.1)
--- NOTE | 2016-10-23 16:45 | NUR ---
A&OX3. 1-2 PA WEAK. SBP 90'S-120'S. HR 60'S-70'S. AFEBRILE. 2.5L 02 AND BIPAP AT NOC. LS COARSE/WHEEZY. BS ACTIVE NO BM TODAY VOID PER URINAL 600ML UO. CHEST TUBE TO L) PAIN CONTROLLED WITH NORCO. DECREASED APPETITE. INT IV ATBX JACI PICC R IJ WILL DC SOON. 320ML OUTPUT CX TUBE. THRUSH TO MOUTH NYSTATIN. HAD CHEST PAIN AT 1200 DID WORKUP ENZYMES X3 NEXT AT 1900 THEN 0100 NURSE DRAW. STOOL FOR C DIFF NO BM TODAY. XANAX X2
--- NOTE | 2016-10-24 00:39 | NUR ---
PT REFUSED HIS BIPAP TONIGHT AND IS CURRENTLY ON NC WITH NO SIGNS OF DISTRESS.
[2016-10-24 03:57] LABS: HEMATOCRIT 25.5 % (37.0-53.0); MPV 9.2 fl (9.4-12.4); RBC 2.64 M/uL (3.50-5.50); WBC 13.1 K/uL (4.0-11.0)
[2016-10-24 03:58] LABS: HEMOGLOBIN 7.9 g/dL (11.0-16.0); MCH 29.9 pg (27.0-34.0); MCV 96.6 fl (83.0-98.0); PLATELET COUNT 286 K/uL (150-450); RDW-CV 19.2 % (11.9-14.6)
--- NOTE | 2016-10-24 04:43 | NUR ---
Significant Event: Patient alert/oriented x3, forgetful at times. Vital signs are stable. On 2-3L O2 per NC. He did request to be put on BiPAP and was on it for about 2 hours before requesting to be put back on NC. Cardiac enzymes have trended down and patient has denied any further chest pain/discomfort. Chest tube on left side to suction with 94 mL sanguinous drainage. Continues on IV antibiotics. Upper right arm PICC double lumen in place, dressing and caps changed last night. Patient gets scheduled MS Contin and PRN [place], last given at 0030. Repositioned q.2hr. Follow up: CXR this AM.
[2016-10-24 05:36] LABS: BANDED NEUTROPHIL # 0.8 K/uL (0.0-0.1); BANDED NEUTROPHILS % 6 %; LYMPHOCYTE # 0.9 K/uL (0.8-4.0); LYMPHOCYTE % 7 %; MONOCYTE # 1.2 K/uL (0.0-1.0); SEGMENTED NEUTROPHIL # 9.2 K/uL (1.4-9.0); SEGMENTED NEUTROPHIL % 70 %
[2016-10-24 08:36] LABS: ALK PHOS 66 IU/L (33-138); ALT 25 IU/L (12-78); ANION GAP 11.8 (10.0-19.0); AST 29 IU/L (10-40); BLOOD UREA NITROGEN 25 mg/dL (6-24); CALCIUM 8.1 mg/dL (8.5-10.5); CHLORIDE 104 mMol/L (96-110); CO2 31 mMol/L (22-32); CREATININE 0.8 mg/dL (0.6-1.3); ESTIMATED GFR (MDRD EQUATION) > 60; POTASSIUM 4.8 mMol/L (3.7-5.1); SODIUM 142 mMol/L (135-145); TOTAL BILIRUBIN 0.3 mg/dL (0.0-1.5)
[2016-10-24 08:38] LABS: ALBUMIN 1.9 gm/dL (3.5-5.0); TOTAL PROTEIN 4.9 g/dL (6.0-8.4)
--- NOTE | 2016-10-24 17:24 | NUR ---
Significant Event: VSS AND 3-4L/NC. AFEBRILE. IV ABX CONTINUE. 1 UNIT PRBC'S CURRENTLY TRANSFUSING FOR H 7.9, VENOFER DOSE ALSO GIVEN TODAY. PICC LINE TO RT)UPPER ARM FLUSHES WELL WITH GOOD BLOOD RETURN X2 LUMENS. 2 TABS NORCO GIVEN X2 FOR CT SITE PAIN, WITH RELIEF. UP TO RECLINER AND SHORT DISTANCE IN THE ROOM WITH PT/OT. STOOL FOR CDIFF SENT (-). HAD 2 LARGE SEMI-FORMED BROWN BMS. VOIDS WITH 350 MLS + [address] WITH 400 MLS SEROSANGUINOUS DRAINAGE OUT, CONTINUES TO SUCTION, DRESSING REMAINS C/D/I. REPOSITIONED Q2H. Follow up: CONTINUE PLAN OF CARE.
--- NOTE | 2016-10-25 04:54 | NUR ---
Significant Event:A/Ox3. VSS on 3L/NC. Afebrile. IV ATB continued. 1 unit PRBC finished from day shift, no repeat h/h ordered. CT to L)chest to suction with 100ml serosanguinous drainage, dressing C/D/I. Voids per urinal. 1 assist with transfers. PICC to R)upper arm flushes well with GBR. [place] [address] site pain with relief noted. Follow up:Continue to monitor CT drainage and IV ATB.
--- NOTE | 2016-10-25 17:17 | NUR ---
Significant Event: VSS ON 3L O2 PER NC. CT X3 CONNECTED TO -20CM SUCTION WITH 310ML SANG. DRAINAGE. DRESSING RE-INFORCED TO CT SITE, GAUZE AND SILK TAPE. 2 TABS NORCO GIVEN LAST AROUND 1529 WITH RELIEF OF PAIN NOTED. AMBULATE WITH THERAPY TO DOOR OF ROOM AND BACK TO CHAIR. VOIDS PER URINAL AND BM X1 TODAY. PICC TO R) UPPER ARM SL'D WITH BLOOD RETURN FROM BOTH LUMENS. IV ATB CONTINUED SCHEDULED. Follow up: AT BEDSIDE. CONT TO MONITOR CT SITE AND DRAINAGE, RESP STATUS AND PAIN CONTROL.
[2016-10-26 03:48] LABS: ALK PHOS 68 IU/L (33-138); ALT 29 IU/L (12-78); AST 33 IU/L (10-40); BLOOD UREA NITROGEN 24 mg/dL (6-24); CALCIUM 8.1 mg/dL (8.5-10.5); CHLORIDE 102 mMol/L (96-110); CO2 32 mMol/L (22-32); CREATININE 0.9 mg/dL (0.6-1.3); ESTIMATED GFR (MDRD EQUATION) > 60; SODIUM 141 mMol/L (135-145)
[2016-10-26 03:49] LABS: TOTAL BILIRUBIN 0.4 mg/dL (0.0-1.5); TOTAL PROTEIN 4.9 g/dL (6.0-8.4)
[2016-10-26 03:51] LABS: BASOPHIL % 0.2 %; EOSINOPHIL # 0.2 K/uL (0.0-0.5); EOSINOPHIL % 1.2 %; HEMATOCRIT 30.1 % (37.0-53.0); HEMOGLOBIN 9.1 g/dL (11.0-16.0); IMMATURE GRANULOCYTE # 0.6 K/uL (0.0-0.3); IMMATURE GRANULOCYTE % 4.8 %; LYMPHOCYTE # 1.2 K/uL (0.8-4.0); MCH 29.4 pg (27.0-34.0); MCHC 30.2 gm/dL (32.0-36.5); MCV 97.4 fl (83.0-98.0); MONOCYTE # 1.2 K/uL (0.0-1.0); MONOCYTE % 9.4 %; MPV 9.6 fl (9.4-12.4); NEUTROPHIL # (ANC) 9.9 K/uL (1.4-9.0); NEUTROPHIL % 75.4 %; NRBC % 0.8 /100WBC (0-0.00); PLATELET COUNT 239 K/uL (150-450); RBC 3.09 M/uL (3.50-5.50); RDW-CV 20.4 % (11.9-14.6); WBC 13.2 K/uL (4.0-11.0)
--- NOTE | 2016-10-26 04:26 | NUR ---
Significant Event:No significant changes. VSS on 3L/NC. CT to -20cm suction with 240ml output. Drsg to L)lateral chest C/DI. Millen received at 0300 with xanax per patient request. Resting well after. Voids per urinal. Moderate BM noted, patient refused miralax. PICC to R)upper arm no complications. Follow up:Continue with IV ATB and monitor CT.
--- NOTE | 2016-10-26 17:12 | NUR ---
Significant Event: PATIENT STATES HAVING TO WORK EXTRA AT TAKING BREATHS OF AIR. REMAINS ON 2.5L O2 PER NC WITH NO CHANGES TO LUNG SOUNDS, DIMINISHED. CT TO -2OCM SUCTION WITH 320ML SANG DRAINAGE. DRESSING TO LEFT CT SITE C/D/I. OTHER VSS. NORCO 2 TABS GIVEN LAST AROUND 1450 WITH RELIEF NOTED. CONT SCHEDULED ANTIBIOTICS AND MEDS. VOIDS PER URINAL AND BM X1 NOTED. Follow up: MONITOR PER PLAN OF CARE. CT SITE WITH I/O. PAIN CONTROL.
--- NOTE | 2016-10-27 04:47 | NUR ---
Significant Event:A/Ox3. Low grade temp 99.4. Con't on 3L/NC with no c/o of SOB. CT to -20cm suction with 210ml output, drsg c/d/i. No bubbling noted from CT. Xanax given x2 doses last at 0300. No PRN pain medications given. Follow up:Continue to monitor CT site/drainage. IV ATB.
--- NOTE | 2016-10-27 13:18 | NUR ---
A-NUTRITION F/U CHEST TUBE TO SUCTION. LOW GRADE TEMPS. ON 3L O2 VIA NC. CONTINUES ON IV ATB LABS: NA 141, K+ 5.0, GLU 81, BUN 24, THERMO PROCESSOR 0.9, ALB 2.0 MEDS: MIRALAX (10/24) DIET RX: REGULAR W/ENSURE ENLIVE TID AND ENSURE PUDDING BID AT L/D PO INTAKE 25-100% EST NUTR NEEDS: 8992-4282 KCALS AND 59-71 GM PROTEIN D-AT NUTRITION RISK W/INADEQUATE NUTRIENT INTAKE R/T DECREASED APPETITE AEB INTAKE RECORDS. I-CONTINUE W/ENSURE ENLIVE TID AND ENSURE PUDDING BID M/E-GOAL: PO INTAKE >/=50% BY NEXT F/U 1)F/U PO INTAKE AND POC IN 3-5 DAYS 2)ASSIST NEEDED
--- NOTE | 2016-10-27 17:20 | NUR ---
Significant Event: VSS WITH O2 KEPT AT 3L PER NC. DESATS WHEN O2 DECREASED FROM 3L. CLEAR/DIM LUNG SOUNDS. CT TO LEFT LATERAL CHEST SUTURED IN PLACE WITH DRESSING C/D/I. CHNAGED TO H2O SEAL SUCTION WITH 200ML SEROSANG DRAINAGE. WALKED WITH THERAPY TODAY. VOIDS WELL WITH BM X1. CONT SCHEDULED IV ATB VIA R) UPPER PICC WITH GOOD BLOOD RETURN FROM BOTH LUMENS. LAST NORCO 2 TABS GIVEN MID-MORNING WITH PAIN CONTROLLED REST OF DAY. Follow up: CHEST XRAY IN AM. LABS IN AM.
--- NOTE | 2016-10-28 02:57 | NUR ---
Significant Event: A/0X3. AFEBRILE. VSS ON 3L. NORCO X1 AND SCHEDULED MS CONTIN GIVEN FOR PAIN. PATIENT WAS ABLE TO FIND RELIEF AND REST COMFORTABLY WITH NO C/O OF PAIN REST OF THE SHIFT. PICC TO R) UPPER ARM SL. CONTINUE WITH IV AND PO ANTIBIOTICS. AMBIEN GIVEN PER PATIENT REQUEST. PATIENT WAS ABLE TO REST OFF AND ON. CT TO WATER SEAL. HAD 43 SEROSANGUINOUS DRAINAGE OUT. NO CREPITUS OR BUBBLING NOTED. DRESSING C/D/I. VOIDS FINE. HAD 2 LOOSE BMS THIS SHIFT. CHEST XRAY THIS AM. Follow up: CONTINUE WITH PLAN OF CARE.
--- NOTE | 2016-10-28 17:19 | NUR ---
A/OX3. AFEBRILE. VSS ON 3L. NORCO X1 GIVEN FOR PAIN. PICC TO R) UPPER ARM SL, FLUSHES WELL WITH GOOD BLOOD RETURN TO BOTH LUMENS. XANAX X1. CHEST TUBE X1 PLACED TO SUCTION, DRESSING CHANGED. HAD 297 ML SEROSANGUINOUS DRAINAGE OUT. AMBULATED IN ROOM TO DOOR AND BACK TO WINDOW WITH PULMONARY REHAB. RESTED WELL THROUGOUT SHIFT. REPEAT PCR IN AM.
--- NOTE | 2016-10-28 17:36 | NUR ---
I HAVE REVIEWED THE CHARTING OF SN CIRILO AND I AGREE WITH IT.
[2016-10-29 03:23] LABS: ANION GAP 12.5 (10.0-19.0); CALCIUM 7.8 mg/dL (8.5-10.5); CREATININE 1.3 mg/dL (0.6-1.3); POTASSIUM 4.5 mMol/L (3.7-5.1)
[2016-10-29 03:28] LABS: ALBUMIN 1.8 gm/dL (3.5-5.0)
[2016-10-29 04:18] LABS: BASOPHIL % 0.2 %; EOSINOPHIL # 0.1 K/uL (0.0-0.5); EOSINOPHIL % 0.4 %; HEMOGLOBIN 8.8 g/dL (11.0-16.0); IMMATURE GRANULOCYTE # 0.2 K/uL (0.0-0.3); IMMATURE GRANULOCYTE % 1.4 %; LYMPHOCYTE # 0.8 K/uL (0.8-4.0); MCH 29.7 pg (27.0-34.0); MCHC 30.3 gm/dL (32.0-36.5); MONOCYTE # 1.1 K/uL (0.0-1.0); MONOCYTE % 8.5 %; MPV 9.5 fl (9.4-12.4); NEUTROPHIL # (ANC) 11.1 K/uL (1.4-9.0); NEUTROPHIL % 83.5 %; NRBC % 0 /100WBC (0-0.00); RBC 2.96 M/uL (3.50-5.50); RDW-CV 19.7 % (11.9-14.6); WBC 13.3 K/uL (4.0-11.0)
[2016-10-29 04:19] LABS: PLATELET COUNT 166 K/uL (150-450)
--- NOTE | 2016-10-29 04:22 | NUR ---
Significant Event: A/0X3. AFEBRILE. VSS ON 3L. NORCO GIVEN X1 AND SCHEDULED MS CONTIN GIVEN THIS SHIFT. PATIENT WAS ABLE TO FIND RELIEF AND NO C/O OF PAIN THE REST OF THE SHIFT. PICC TO R) UPPER ARM SL. FLUSHES WITH GOOD BLOOD RETURN. CONTINUE WTIH IV AND PO ANTIBIOTICS. CT TO SUCTION. HAD 80 ML OF SEROSANGUINEOUS DRIANGE OUT. DRESSING C/D/I. NO CREPITUS OR BUBBLING NOTED. CHEST XRAY THIS AM. VOIDED 750 ML PER URINAL. NO BM THIS SHIFT. Follow up: CONTINUE WITH PLAN OF CARE.
[2016-10-29 10:05] LABS: CREATININE 1.4 mg/dL (0.6-1.3)
[2016-10-29 11:01] LABS: CREATININE 1.5 mg/dL (0.6-1.3)
--- NOTE | 2016-10-29 17:16 | NUR ---
A/O X3. NORCO [address] NO BM[address] OUTPUT 290ML SEROSANGUINOUS FLUID REMAINS TO SUCTION. VOIDS W/ ADEQUATE URINE OUTPUT. ON 3L O2 PER NC. PATIENT AND SPOUSE NOTICED INCREASED UNPUPOSEFUL JERKING MOVEMENTS INCREASING TODAY, UPDATED Elizabeth LYONS APRN, MEDS ADJUSTED. ID CONSULT TODAY. CREATININE DRAWN WAS 1.5. ID ROUNDED AND DUE TO INCREASED CREATININE DECREASED COLY-MYCIN TO Q 24 HRS FROM Q 12. PICC TO R) UPPER ARM W/ OCCLUDED RED LUMEN THIS AM, CATH FLOW ACTIVASE ADMINISTERED PER PROTOCOL W/ GOOD RESULTS. BOTH LUMENS FLUSH W/ GOOD BLOOD RETURN. TO CONTINUE CONTACT [employer], IF PATIENT IS ABULATING IN [place] MUST WEAR MASK PER ID DOCTOR.
--- NOTE | 2016-10-29 17:23 | NUR ---
I HAVE REVIEWED THE CHARTING OF GIBRAN Mendenhall STUDENT NURSE AND I AGREE WITH IT.
[2016-10-30 04:21] LABS: ANION GAP 11.5 (10.0-19.0); CALCIUM 7.9 mg/dL (8.5-10.5); CREATININE 1.6 mg/dL (0.6-1.3); POTASSIUM 4.5 mMol/L (3.7-5.1)
[2016-10-30 04:22] LABS: ALBUMIN 1.7 gm/dL (3.5-5.0)
[2016-10-30 04:30] LABS: BASOPHIL % 0.1 %; EOSINOPHIL # 0.1 K/uL (0.0-0.5); EOSINOPHIL % 0.5 %; HEMATOCRIT 28.9 % (37.0-53.0); HEMOGLOBIN 8.8 g/dL (11.0-16.0); IMMATURE GRANULOCYTE # 0.2 K/uL (0.0-0.3); IMMATURE GRANULOCYTE % 1.9 %; LYMPHOCYTE # 0.7 K/uL (0.8-4.0); LYMPHOCYTE % 6.9 %; MCH 29.6 pg (27.0-34.0); MCHC 30.4 gm/dL (32.0-36.5); MCV 97.3 fl (83.0-98.0); MONOCYTE # 0.8 K/uL (0.0-1.0); MONOCYTE % 8.4 %; MPV 9.4 fl (9.4-12.4); NEUTROPHIL # (ANC) 8.1 K/uL (1.4-9.0); NEUTROPHIL % 82.2 %; NRBC % 0 /100WBC (0-0.00); PLATELET COUNT 192 K/uL (150-450); RBC 2.97 M/uL (3.50-5.50); RDW-CV 19.1 % (11.9-14.6); WBC 9.9 K/uL (4.0-11.0)
--- NOTE | 2016-10-30 05:59 | NUR ---
Significant Event:VSS.3L NC. CT TO SUCTION, DRESSING IS CDI, 110CC OUT THIS SHIFT. IV ABX ORDERED. PT C/O PAIN TO BACK, SCHEDULED MORPHINE AND PRN NORCO GIVEN WITH RELIEF. Follow up:CONT TO MONITOR
--- NOTE | 2016-10-30 08:53 | NUR ---
A - NUT F/U. INTAKE IMPROVED. 1-2+ EDEMA LABS: BUN/CR 33/1.6, ALB 1.7, HGB/HCT 8.8/28.9 MEDS: TOBRAMYCIN, FLAGYL, KCL, K-PHOS, FLORASTOR, PREDNISONE, BOWEL/NAUSEA, REGLAN, PEPCID DIET: REG. INTAKE: MOSTLY 50-100% ENSURE TID, ENSURE PUDDING @ L&D NEEDS: 5004-9189 KCAL, 59-71 G PRO D - NO NUTRITION RELATED DIAGNOSIS IDENTIFIED AT THIS TIME. I - GOAL FOR INTAKE TO REMAIN 50-100% FOR DURATION OF STAY. M/E - WILL ASSIST NEEDED.
--- NOTE | 2016-10-30 16:37 | NUR ---
Significant Event: 02 3liters still. Pt up to bathroom with ok. BUmex iv today for edema in feet/legs. Pt is to have new antibiotic tomorrow. Abdirahman this afternoonx1. Follow up:
[2016-10-31 05:11] LABS: ANION GAP 11.9 (10.0-19.0); CALCIUM 8.1 mg/dL (8.5-10.5); POTASSIUM 4.9 mMol/L (3.7-5.1)
[2016-10-31 05:15] LABS: BASOPHIL % 0.1 %; EOSINOPHIL # 0.1 K/uL (0.0-0.5); EOSINOPHIL % 0.9 %; HEMATOCRIT 31.4 % (37.0-53.0); HEMOGLOBIN 9.4 g/dL (11.0-16.0); IMMATURE GRANULOCYTE # 0.1 K/uL (0.0-0.3); IMMATURE GRANULOCYTE % 1.1 %; LYMPHOCYTE # 0.7 K/uL (0.8-4.0); LYMPHOCYTE % 6.2 %; MCH 29.1 pg (27.0-34.0); MCHC 29.9 gm/dL (32.0-36.5); MCV 97.2 fl (83.0-98.0); MONOCYTE % 8.9 %; MPV 9.2 fl (9.4-12.4); NEUTROPHIL # (ANC) 9.4 K/uL (1.4-9.0); NEUTROPHIL % 82.8 %; NRBC % 0 /100WBC (0-0.00); PLATELET COUNT 214 K/uL (150-450); RBC 3.23 M/uL (3.50-5.50); RDW-CV 18.8 % (11.9-14.6); WBC 11.4 K/uL (4.0-11.0)
--- NOTE | 2016-10-31 05:26 | NUR ---
Significant event: A/O x 3. at bedside and assisting with cares. PICC in right upper arm with ATB runnig intermittently. CT to water seal with leak that is aware of. VSS on 3l nc with sats in the mid 90's. No c/o pain. Continues to be in isolation for pseudomonas pneumonia.
[2016-10-31 14:39] LABS: CREATININE 2.2 mg/dL (0.6-1.3)
--- NOTE | 2016-10-31 19:25 | NUR ---
Significant Event: a/o x 3. pain to left side chest tube insertion site. dsg to site C/D/I. Chest tube changed to suction this am due to small pneumo. 150ml out this shift. no crepetis. continues on 3 liters of oxygen. ambulates with walker and one assist. shortness of breath/dyspnea with exertion. double lumen PICC to right upper arm flushes with good blood return. Normal saline started at 50ml/hr this aftn. Creatinine 2.2 this aftn. was 2.0 this am. Orders for strict I & O. Renal in the morning. Continues in contact isolation. continues on IV antibiotics.
--- NOTE | 2016-11-01 04:03 | NUR ---
Significant event: A/O x 3. Up in room with . CT to suction with 60ml out this shift. VSS remains on 3-4L NC with sats in the mid to high 90's no c/o pain throughout shift. 1 loose stool. Intermittent antibiotics, NS running at 50ml/hr.
[2016-11-01 05:37] LABS: ALBUMIN 1.8 gm/dL (3.5-5.0); ANION GAP 13.9 (10.0-19.0); CALCIUM 8.2 mg/dL (8.5-10.5); CREATININE 2.3 mg/dL (0.6-1.3); PHOSPHORUS 4.7 mg/dL (2.5-4.9); POTASSIUM 4.9 mMol/L (3.7-5.1)
[2016-11-01 11:05] LABS: HEMATOCRIT 32.6 % (37.0-53.0); HEMOGLOBIN 9.8 g/dL (11.0-16.0); MCH 29.1 pg (27.0-34.0); MCHC 30.1 gm/dL (32.0-36.5); MCV 96.7 fl (83.0-98.0); MPV 8.8 fl (9.4-12.4); RBC 3.37 M/uL (3.50-5.50); RDW-CV 18.8 % (11.9-14.6); WBC 10.4 K/uL (4.0-11.0)
[2016-11-01 11:18] LABS: ANION GAP 14.3 (10.0-19.0); CALCIUM 8.3 mg/dL (8.5-10.5); CREATININE 2.4 mg/dL (0.6-1.3); POTASSIUM 5.3 mMol/L (3.7-5.1)
--- NOTE | 2016-11-01 15:30 | NUR ---
Significant Event: pt up to bathroom this am, got bath. Up to chair. CT suction serosang.170ml, dressing changed today. [place] for pain. IVF infusing. TEDS on. 3liters still. Renal/mg in am. Pt here with pt. Follow up:
[2016-11-02 03:52] LABS: ANION GAP 13.9 (10.0-19.0); CALCIUM 8.2 mg/dL (8.5-10.5); CREATININE 2.4 mg/dL (0.6-1.3); PHOSPHORUS 4.5 mg/dL (2.5-4.9); POTASSIUM 4.9 mMol/L (3.7-5.1)
[2016-11-02 03:53] LABS: ALBUMIN 1.8 gm/dL (3.5-5.0)
--- NOTE | 2016-11-02 04:04 | NUR ---
Significant Event: A/0X3. TURNS SELF. AFEBRILE. VSS ON 3-4L. PICC TO R) UPPER ARM WITH NS @ 50 ML/H. NORCO GIVEN X1 AND SCHEDULED MS CONTIN GIVEN FOR PAIN THIS SHIFT. PAIN WAS WELL CONTROLLED AND NO C/O OF PAIN REST OF THE SHIFT. AMBIEN GIVEN PER PATIENT REQUEST. PATIENT WAS ABLE TO REST OFF AND ON THROUGHT THE SHIFT. CT TO SUCTION HAD 70 SEROSANGUINEOUS DRAINAGE OUT. DRESSING C/D/I. VOIDED 800 ML PER UIRNAL. NO BM THIS SHIFT. Follow up: CONTINUE WITH PLAN OF CARE.
--- NOTE | 2016-11-02 16:38 | NUR ---
Significant Event: norco once today for pain, plus warm blanket on ct site. 02 3liters. Pt more short of breath and raspy, crackles at 1515, bumex 1mg given slowly and ivf stopped. Pt has been drinking well today. PT amb pt in room. JAZMIN hose on. IS q1hr to 750. MG 1.4. K 4.9. More out of ct today. Follow up:
[2016-11-03 03:18] LABS: ANION GAP 14.2 (10.0-19.0); CALCIUM 8.6 mg/dL (8.5-10.5); CREATININE 2.6 mg/dL (0.6-1.3); PHOSPHORUS 4.3 mg/dL (2.5-4.9); POTASSIUM 4.2 mMol/L (3.7-5.1)
[2016-11-03 03:33] LABS: BASOPHIL % 0.3 %; EOSINOPHIL # 0.2 K/uL (0.0-0.5); EOSINOPHIL % 2.5 %; HEMATOCRIT 34.3 % (37.0-53.0); HEMOGLOBIN 10.4 g/dL (11.0-16.0); IMMATURE GRANULOCYTE # 0.1 K/uL (0.0-0.3); IMMATURE GRANULOCYTE % 0.7 %; LYMPHOCYTE # 0.5 K/uL (0.8-4.0); LYMPHOCYTE % 7.9 %; MCH 28.9 pg (27.0-34.0); MCHC 30.3 gm/dL (32.0-36.5); MCV 95.3 fl (83.0-98.0); MONOCYTE # 0.7 K/uL (0.0-1.0); MONOCYTE % 10.3 %; MPV 8.9 fl (9.4-12.4); NEUTROPHIL # (ANC) 5.2 K/uL (1.4-9.0); NEUTROPHIL % 78.3 %; NRBC % 0.3 /100WBC (0-0.00); PLATELET COUNT 224 K/uL (150-450); RDW-CV 18.3 % (11.9-14.6); WBC 6.7 K/uL (4.0-11.0)
--- NOTE | 2016-11-03 04:03 | NUR ---
Significant Event: A/0X3. TURNS SELF. AFEBRILE. VSS ON 3L. NORCO GIVEN X1 AND SCEHDULED MS CONTIN GIVEN TO HELP CONTROL PAIN. PATIENT WAS ABLE TO FIND RELIEF AND REST COMFORTABLY THROUGHOUT THE NIGHT WITH NO OTHER C/O OF PAIN. PICC TO R) UPPER ARM SL. FLUSHES WITH GOOD BLOOD RETURN. CT TO L) LATERAL SIDE HOOKED TO SUCTION HAD 70 SEROSANGUINEOUS DRAINAGE OUT. DRESSING C/D/I. VOIDED 1000 ML. NO BM THIS SHIFT. CONTINUE WITH IV AND PO ANTIBIOTICS. Follow up: PENNY WITH PLAN OF CARE.
--- NOTE | 2016-11-03 19:04 | NUR ---
Significant Event: A/O x3, cooperative with cares. VSS, SBPs 110-120s, HRs 80s, oxygen at 2 liters. No c/o pain. L) lateral chest tube to suction; dressing C/D/I. 160 ml of serous drainage out this shift; canister changed. Up with assist of 1 et walker; ambulated in room with cardiac rehab; working with PT/OT. Double lumen PICC line to upper R) arm; slightly sluggish with blood return Follow up:
--- NOTE | 2016-11-04 04:32 | NUR ---
Significant Event: Patient alert and oriented x3. SBP 129-144. All other vital signs stable. On 3L O2. Contact isolation continues for pseudomonas. [place] given x1 for complaints of pain to chest tube site. PICC to R) upper arm saline locked. Sluggish but good blood return. Chest tube continues to left lateral side with 20ml suction. 155ml output this shift. Lung sounds are course throughout. Dressing C/D/I. Up with 1 assist, walker, and gaitbelt. at bedside. Calm and cooperative with all cares. Follow up: Continue IV and PO antibiotics. Continue to monitor chest tube and respiratory status.
[2016-11-04 06:06] LABS: CALCIUM 8.3 mg/dL (8.5-10.5); CREATININE 2.6 mg/dL (0.6-1.3); PHOSPHORUS 4.3 mg/dL (2.5-4.9)
[2016-11-04 06:09] LABS: ALBUMIN 1.9 gm/dL (3.5-5.0); ANION GAP 12.8 (10.0-19.0); POTASSIUM 3.8 mMol/L (3.7-5.1)
--- NOTE | 2016-11-04 17:03 | NUR ---
Significant Event: VSS AND 3L/NC. AFEBRILE. DRESSING CHANGED TO PICC LINE AND CATH ROSIBEL ACTIVASE TO RED LUMEN. IV ABX CONTINUE. 2 TABS NORCO GIVEN X2. AMBULATES IN ROOM WITH PT/OT/PULMONARY REHAB. CT TO SUCTION WITH 200 MLS SEROSANGUINOUS OUTPUT. VOIDS WITH ADEQUATE UOP. Follow up: CONTINUE PLAN OF CARE; ID TO SEE TOMORROW.
[2016-11-05 03:10] LABS: ANION GAP 13.8 (10.0-19.0); CALCIUM 8.4 mg/dL (8.5-10.5); CREATININE 2.6 mg/dL (0.6-1.3); PHOSPHORUS 4.1 mg/dL (2.5-4.9); POTASSIUM 3.8 mMol/L (3.7-5.1)
--- NOTE | 2016-11-05 04:42 | NUR ---
Significant Event: Patient alert and oriented x3. SBP 119-150. All other vital signs stable. 2-3L O2 per NC. PICC line to upper R) arm S/L. Purple cap sluggish and hard to flush. Blood return from both lumens. 2 tabs [place] given x1 for complaints of pain to chest tube site. Chest tube dressing C/D/I. 150mls output from chest tube. 475ml uop this shift. Calm and cooperative with all cares. continues at bedside. Follow up: Continue with IV antibiotics. ID to see today. Will continue to monitor pain, respiratory status, and chest tube.
--- NOTE | 2016-11-05 12:00 | NUR ---
A - NUT F/U. INTAKE DECLINED SINCE LAST ASSESSMENT. 1-2+ EDEMA. LABS: BUN/CR 48/2.6, ALB 2.0 MEDS: KCL, K-PHOS, PEPCID, FLORASTOR, PREDNISONE, LEXAPRO, BOWEL/NAUSEA, REGLAN DIET: REG. INTAKE: 0-100%, AVG ~53% ENSURE TID, ENSURE PUDDING @ L&D - 100% NEEDS: 0945-7685 KCAL, 59-71 G PRO D - INADEQUATE NUTRIENT INTAKE AT TIMES R/T DECREASED APPETITE AEB INTAKE RECORD. I - GOAL FOR INTAKE 50-100% FOR DURATION OF STAY. WILL CONTINUE CURRENT SUPPLEMENTS M/E - WILL MONITOR INTAKE F/U IN 5-6 DAYS.
--- NOTE | 2016-11-05 13:29 | NUR ---
Social visit with patient and today. Discussed discharge plans. They are still planning on going home on discharge. They deny any needs at this time. Will continue to follow.
--- NOTE | 2016-11-05 17:53 | NUR ---
PATIENT UP TO CHAIR W/ 1 ASSIST. VSS, 2-3L NC. 120 ML OUT OF CHEST TUBE. INFECTIOUS DISEASE MD ROUNDED ON PATIENT TODAY. AT BEDSIDE ASSISTED W/ CARES.
[2016-11-06 04:31] LABS: ALBUMIN 2.4 gm/dL (3.5-5.0); ANION GAP 11.6 (10.0-19.0); CALCIUM 8.5 mg/dL (8.5-10.5); CREATININE 2.7 mg/dL (0.6-1.3); PHOSPHORUS 3.6 mg/dL (2.5-4.9); POTASSIUM 3.6 mMol/L (3.7-5.1)
[2016-11-06 04:43] LABS: BASOPHIL % 0.2 %; EOSINOPHIL # 0.1 K/uL (0.0-0.5); EOSINOPHIL % 2.5 %; HEMATOCRIT 34.3 % (37.0-53.0); HEMOGLOBIN 10.3 g/dL (11.0-16.0); IMMATURE GRANULOCYTE % 0.6 %; LYMPHOCYTE # 0.6 K/uL (0.8-4.0); LYMPHOCYTE % 12.7 %; MCH 28.7 pg (27.0-34.0); MCV 95.5 fl (83.0-98.0); MONOCYTE # 0.6 K/uL (0.0-1.0); MONOCYTE % 12.1 %; NEUTROPHIL # (ANC) 3.4 K/uL (1.4-9.0); NEUTROPHIL % 71.9 %; NRBC % 0.4 /100WBC (0-0.00); PLATELET COUNT 216 K/uL (150-450); RBC 3.59 M/uL (3.50-5.50); RDW-CV 17.9 % (11.9-14.6); WBC 4.8 K/uL (4.0-11.0)
--- NOTE | 2016-11-06 05:59 | NUR ---
Significant Event: Patient alert and oriented X3. SBP 130s this shift. On 2-3L O2 per NC. All other vital signs stable. Pitting edema to bilateral feet and ankles upon removal of sabra hose. Dr. Alcantara notified. Chest X-Ray, 1mg Bumex, and 2 doses Albumen ordered. Lung sounds C/D and at times slightly coarse. [place] given x1 for C/O pain to chest tube site. Chest tube dressing C/D/I. 120ml out from chest tube. Continues to suction. 1100ml uop. PICC to upper R) arm continues. 1 assist in room. Calm and cooperative with all cares. continues at bedside. Follow up: Will continue to monitor edema, pain, respiratory status, and chest tube.
--- NOTE | 2016-11-06 18:44 | NUR ---
PATIENT UP TO CHAIR AND BR W/ 1 ASSIST. 2-3L NC, KEEPS SATS ABOUT 94%. 100 ML OUT OF CHEST TUBE. ALBUMIN X1, EDEMA IMPROVED THIS SHIFT. 1 NORCO GIVEN X3, WITH PARTIAL PAIN RELIEF. ASSISTED W/ CARES.
[2016-11-07 03:46] LABS: ALBUMIN 2.6 gm/dL (3.5-5.0); CALCIUM 8.6 mg/dL (8.5-10.5); CREATININE 2.4 mg/dL (0.6-1.3); PHOSPHORUS 3.3 mg/dL (2.5-4.9)
--- NOTE | 2016-11-07 04:15 | NUR ---
Patient A/Ox3. VSS on 1-2L NC. One assist. Lungs slightly course, CT to suction 100ml out. Bowel sounds present. PICC to Rt upper arm. Edema to bilateral ankles and feet. [place] x1 for incision pain. Creatine 2.4 this am, improving.
--- NOTE | 2016-11-07 10:56 | NUR ---
reviewed student charting and on the floor from [id number] gopi [email or web address]
--- NOTE | 2016-11-07 16:19 | NUR ---
Significant Event: Patient A/O x3. VS stable on 2L 02 per NC. Complains of pain to L) chest area due to the chest tube. 1 [place] tab given last at 1430 with relief noted. Patient up 1 assist gaitbelt. Ambulates with therapy in room this shift. Voids per urinal. Bumex given this shift. Chest tube dressing in C/D/I. Total output this shift for the chest tube was 130ml. PICC to R) upper arm SL with intermittent antibiotics. Flush well, purple lumen has no blood return. Continued in contact isolation. Patient pleasant and cooperative with cares. assisted with cares. Follow up:
[2016-11-07 23:46] LABS: MAGNESIUM 1.7 mg/dL (1.3-2.6); POTASSIUM 4.2 mMol/L (3.7-5.1)
[2016-11-08 05:43] LABS: ALBUMIN 2.4 gm/dL (3.5-5.0); ANION GAP 11.9 (10.0-19.0); CALCIUM 8.8 mg/dL (8.5-10.5); CREATININE 2.2 mg/dL (0.6-1.3); PHOSPHORUS 3.1 mg/dL (2.5-4.9); POTASSIUM 3.9 mMol/L (3.7-5.1)
--- NOTE | 2016-11-08 07:01 | NUR ---
Significant Event: Alert and oriented X3. SBP 120's-150's. Was NSR until 2300 then converted to A-flutter with HR's 120's. Amiodarone bolus and gtt per protocol started. Changed rate to 0.5mg/min at 0600. Replaced MG with 3grams for MG level of 1.7. Recheck of MG pending. Chest tube continues to have flutuations. 120mls out. Up with SBA. Right upper arm PICC with good blood return. Follow up: continue to monitor.
--- NOTE | 2016-11-08 15:58 | NUR ---
Significant Event: PT A/O X3, VSS - AFIB/FLUTTER W/ AMIO GTT, PT UP WITH ASSIST X1 TO BATHROOM. ENCOURAGE INTAKE. ENCOURAGE I.S. - PT COMPLIANT. ORDER FOR AMIO GTT AT 1MG/H, NO TITRATIONS. CT TO WATER SEAL, 90 CC OUT THIS TOD. TITRATE PT DOWN TO 1LNC. CHANGES TO OTHER BP MEDS. AM LABS. CALL LIGHT AND PERSONAL ITEMS IN REACH, QUESTIONS/CONCERNS ADDRESSED THIS TOD. AT BEDSIDE MAJOIRTY THIS TOD, OTHER FRIENDS/FAMILY VISIT AFTERNOON. Follow up: CONTINUE AMIO GTT PER ORDER. AM LABS: CBC, BMP, MG. ENCOURAGE I.S., ENCOURAGE INTAKE. CONTINUE TO MONITER, CONTINUE PER PLAN OF CARE.
[2016-11-09 04:02] LABS: ANION GAP 15.1 (10.0-19.0); CALCIUM 8.4 mg/dL (8.5-10.5); MAGNESIUM 2.1 mg/dL (1.3-2.6); POTASSIUM 4.1 mMol/L (3.7-5.1)
[2016-11-09 04:09] LABS: HEMATOCRIT 36.3 % (37.0-53.0); HEMOGLOBIN 11.3 g/dL (11.0-16.0); MCH 29.8 pg (27.0-34.0); MCHC 31.1 gm/dL (32.0-36.5); MCV 95.8 fl (83.0-98.0); PLATELET COUNT 254 K/uL (150-450); RBC 3.79 M/uL (3.50-5.50); WBC 9.3 K/uL (4.0-11.0)
[2016-11-09 05:03] LABS: ABSOLUTE NEUTROPHIL CT (ANC) 7.7 K/uL (1.4-9.0); BANDED NEUTROPHIL # 0.2 K/uL (0.0-0.1); BANDED NEUTROPHILS % 2 %; LYMPHOCYTE # 0.6 K/uL (0.8-4.0); LYMPHOCYTE % 6 %; MONOCYTE # 0.8 K/uL (0.0-1.0); SEGMENTED NEUTROPHIL # 7.5 K/uL (1.4-9.0); SEGMENTED NEUTROPHIL % 81 %
--- NOTE | 2016-11-09 05:41 | NUR ---
Significant event: A/O x 3. Up in room with 1 assist. at bedside and very helpful with all cares. Continues on the Amio drip at 1mg/min. Still in afib/flutter with rates in the 90's. Ct to water seal with 40ml out this shift. Does have flucuations that doctor is aware of. cooperative with all cares VSS. Continues to be in isolation
--- NOTE | 2016-11-09 16:25 | NUR ---
Significant Event: PT A/O X3, VSS, AMIO GTT STOPPED W/ START OF PO, THEN D/C PO AND REBOLUS AMIO GTT AND CONT AT 1 MG/MIN W/O TITRATION. CT TO SUCTION -40, PT UP WITH ASSIST X1 TO BATHROOM. CALL LIGHT AND PERSONAL ITEMS IN REACH, QUESTIONS/CONCERNS ADDRESSED THIS TOD. AND FAMILY AT BEDSIDE OFF/ON THIS TOD. Follow up: CONTINUE AMIO GTT AT 1 MG/MIN W/O TITRATION, ACCURATE I/O - OUTPUT OF CT, CONTINUE TO MONITER, CONTINUE PER PLAN OF CARE.
[2016-11-10 05:14] LABS: MAGNESIUM 1.8 mg/dL (1.3-2.6); POTASSIUM 3.9 mMol/L (3.7-5.1)
[2016-11-10 05:16] LABS: ANION GAP 10.9 (10.0-19.0)
--- NOTE | 2016-11-10 05:24 | NUR ---
Significant event: A/O x 3. Up in room with 1 assist walker and gait belt. helpful with all cares. CT intact and on suction with 180ml out this shift. Voids well per urinal. Amiodarone drip continued and not to be titrated or shut off until gives the ok. Patient still in afib with rates in the 80's-90's. All other VSS. continues in isolation.
--- NOTE | 2016-11-10 11:53 | NUR ---
A - NUT F/U. INTAKE IMPROVED SINCE LAST ASSESSMENT. 1-2+ EDEMA. LABS: ACCUCHECK REAS, GLU 374, BUN/CR 35/2.0, ALB 2.4 MEDS: KCL, K-PHOS, PEPCID, PREDNISONE, FLORASTOR, REGLAN DIET: REG. INTAKE: MOSTLY 50-100% ENSURE TID, ENSURE PUDDING @ L&D - 100% NEEDS: 9350-3381 KCAL, 59-71 G PRO D - NO LONGER AT NUTRITION RISK W/ ADEQUATE NUTRIENT INTAKE. NO NUTRITION RELATED DIAGNOSIS IDENTIFIED AT THIS TIME. I - GOAL FOR INTAKE TO REMAIN 50-100% FOR DURATION OF STAY. WILL CONTINUE SUPPLEMENTS TO MAINTAIN NUTRITION STATUS. M/E - WILL ASSIST NEEDED.
--- NOTE | 2016-11-10 17:57 | NUR ---
PATIENT HAS BEEN UP IN CHAIR THROUGHOUT DAY. SAMPLES WERE TAKEN OFF CHEST TUBE FOR A CULTURE AND SENSITIVITY BY DR. LEAL. PATIENT HAS ONLY HAD [address] OF CHEST DONE TODAY. 200ML OUT OF CHEST TUBE.
--- NOTE | 2016-11-11 04:47 | NUR ---
Significant Event: Patient alert and oriented x3. SBP 130-150. All other vital signs stable. On 1L-RA this shift. CT continues to -40 suction with [address] output. [address] canister changed. 650ml uop this shift. Amiodarone gtt continues at 1mg/min. Orders to not titrate or shut off. Patient continues A-Fib/A-Flutter. Isolation also continues. Up with 1 assist, walker, and gaitbelt. Xanex x1 given for anxiety due to conversation with Dr. Casarez today. Patient felt better throughout shift. at bedside. Calm and cooperative with all cares. Follow up: Continue to monitor chest tube and respiratory status.
--- NOTE | 2016-11-11 17:42 | NUR ---
Significant Event:Patient has been up in chair. Ambulated in room. Has tried to be on room air- sats 88-90%, on 1 L- 96%. Did have fairly clear and dim breath sounds this mrning, and then at 1315, reported he was having audiblle wheezing that she could hear at door. That wasn't noted by staff, but breath sounds are tight, and wheezey in all lobes. Had refused resp treatment at 1100, but did take one at 1315. Patient is SOB with activity. Had 210 ml out of chest tube, is serous. Had one [place] twice, last at 1435, and a Xanax this morning at 0930. Follow up:Monitor resp status
[2016-11-12 03:20] LABS: ALBUMIN 2.2 gm/dL (3.5-5.0); ANION GAP 12.4 (10.0-19.0); CALCIUM 8.1 mg/dL (8.5-10.5); CREATININE 1.8 mg/dL (0.6-1.3); PHOSPHORUS 4.3 mg/dL (2.5-4.9); POTASSIUM 4.4 mMol/L (3.7-5.1)
--- NOTE | 2016-11-12 07:57 | NUR ---
Significant Event: Patient alert and oriented x3. SBP 140s-160s. All other vital signs stable. On 1L O2 per NC. CT continues to -40 suction with 120ml output. Amiodarone gtt continues at 1mg/min. A-Fib/A-Flutter continues. Isolation continues. Xanex given x2. [place] 2 tabs given x1 for c/o pain to chest tube site. Up with one assist and walker. at bedside. Calm and cooperative with all cares. Follow up: Continue to monitor respiratory status and chest tube.
--- NOTE | 2016-11-12 16:14 | NUR ---
Significant Event: VSS AND 2L/NC, ATTEMPTED TO WEAN BUT SATS 86-88% ON RA. AFEBRILE. XANAX GIVEN X1 EARLY AFTERNOON. 2 TABS NORCO X1 FOR LT) CHEST TUBE SITE PAIN, WITH RELIEF. CT TO -20 CMS SUCTION WITH 60 MLS SEROUS DRAINAGE OUT. VOIDS WITH ADEQUATE UOP. HAD A MODERATE BM. CONTINUES TO WORK WITH PT/OT/AND PULMONARY REHAB AND AMBULATES IN ROOM. PLEURAL FLUID CX WAS (+) FOR MRSA; ID FOLLOWING AND TO CONTINUE CONTACT ISOLATION. NO NEW ANTIBIOTIC ORDERS AT THIS TIME FROM ID. AMIODARONE GTT CONTINUE AT 1 MG/MIN AND A 150 MG BOLUS GIVEN PER DR SALAS; HRS'S 80S-90S, SBPS 120S-150S; DR. BROWN WAS CONSULTED FOR THE AFIB AND HAS YET TO ROUND. POC DISCUSSED BETWEEN DR SALAS AND SABIHA SOARES AND PLAN IS TO TX TO [facility] TOMORROW FOR FURTHER WORK-UP. PACKET AND ORDERS STARTED BY DR. SALAS AND THE PATIENT AND HIS WERE UPDATED ON POC. Follow up: CONTINUE PLAN OF CARE; TX TMRW TO [facility].
--- NOTE | 2016-11-13 04:22 | NUR ---
Significant event: Patient A/Ox3. VSS on 2L NC. Patient is up 1-assist in room with walker. 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 Amiodarone gtt at 1mcg/min. HR 90s. SBP 150s. PICC to R) upper arm flushes well, good blood return. 80ml out of chest tube this shift. Follow up: Patient to transfer to [facility] today for surgery. Please call [facility] when we have a bed for him.
--- NOTE | 2016-11-13 14:10 | NUR ---
Received call from Free at [facility] stating that they have a bed avaialble for Neville. He will go to [facility] room [id number]. I called and updated Mehdi kiln charger nurse on PCU. He states patient could be ready to go in a hour. I called and updated Jody with EMS and she will get an ambulance crew on the way.
--- NOTE | 2016-11-13 16:07 | NUR ---
Significant Event: A/O x3, cooperative with cares. VSS, SBPs 130-160s, HRs 80-100s, oxygen at 2 liters. 1 tab of Lyons given x2, last at 1521, for c/o back pain; mild relief noted. Xanax given at 1359 for c/o anxiety. Double lumen PICC line to upper R) arm saline locked; flushes with good blood return. Up with assist of 1; ambulate in room et to bathroom. Ambulance crew here; patient transferred to cot. Transferred to [facility] per ambulance accompanined by industrial engineering manager Follow up:
== END 2016-11-13 15:50 | disposition hospice, home (50) | DRG 163 ==
LOC: GPCU 10-15 07:08
PROVIDERS: Internal Medicine Geriatric Medicine; Nurse Practitioner Women's Health; Thoracic Surgery (Cardiothoracic Vascular Surgery); ADMIT Thoracic Surgery (Cardiothoracic Vascular Surgery)
PROC: 0BDP0ZZ Extraction of Left Pleura, Open Approach (ICD-10-PCS; principal; 2016-10-15)
PROC: 30233N1 Transfusion of Nonautologous Red Blood Cells into Peripheral Vein, Percutaneous Approach (ICD-10-PCS; 2016-10-15)
PROC: 30233N1 Transfusion of Nonautologous Red Blood Cells into Peripheral Vein, Percutaneous Approach (ICD-10-PCS; 2016-10-16)
PROC: 30233N1 Transfusion of Nonautologous Red Blood Cells into Peripheral Vein, Percutaneous Approach (ICD-10-PCS; 2016-10-24)
DX: J86.9 Pyothorax without fistula (principal); E43 Unspecified severe protein-calorie malnutrition; N17.9 Acute kidney failure, unspecified; J98.19 Other pulmonary collapse; J95.812 Postprocedural air leak; J94.8 Other specified pleural conditions; J44.9 Chronic obstructive pulmonary disease, unspecified; I27.2 Other secondary pulmonary hypertension; I10 Essential (primary) hypertension; Z87.891 Personal history of nicotine dependence; B96.5 Pseudomonas (aeruginosa) (mallei) (pseudomallei) as the cause of diseases classified elsewhere; Z16.24 Resistance to multiple antibiotics; I48.0 Paroxysmal atrial fibrillation; Z79.82 Long term (current) use of aspirin; G25.1 Drug-induced tremor; Y83.8 Other surgical procedures as the cause of abnormal reaction of the patient, or of later complication, without mention of misadventure at the time of the procedure; E87.6 Hypokalemia; B95.62 Methicillin resistant Staphylococcus aureus infection as the cause of diseases classified elsewhere; Z79.52 Long term (current) use of systemic steroids
CPT/HCPCS: A9270; G0237; G0424; J0171; J0278; J0282; J0713; J0714; J0770; J0885; J1100; J1160; J1200; J1644; J1650; J1720; J2001; J2060; J2250; J2270; J2405; J2916; J2997; J3010; J3260; J3475; J3480; J7030; J7040; J7050; J7060; J7512; J7612; P9016; P9045; P9047

== ENCOUNTER → 2016-12-09 | Outpatient (CLI) | payer MEDICARE, OTHER ==
[~2016-12-09] MED LIST changes: +BETAPACE (GENER80 MG; +BROVANA15 MCG/2 M INH; +CENTRUM SILVER1 EAC5 PO; +CLEARLAX510 GM PO; +ELIQUIS5 MG PO; +LANOXIN62.5 MCG PO; +LOPRESSOR100 MG PO; +MOVANTIK25 MG; +PARAFON FORTE500 MG; +PROBIOTIC1 EAC1 PO; +PULMICORT0.5 MG/21 INH; +XANAX0.25 MG PO; +ZOFRAN ODT4 MG PO
== END ==
LOC: LNHI 16:54
DX: J86.9 Pyothorax without fistula (principal)

== ENCOUNTER → 2016-12-09 | Outpatient (CLI) | payer MEDICARE, OTHER ==
[2016-12-09 16:11] LABS: BASOPHIL % 0.1 %; EOSINOPHIL # 0.1 K/uL (0.0-0.5); EOSINOPHIL % 0.5 %; HEMATOCRIT 39.9 % (37.0-53.0); HEMOGLOBIN 12.7 g/dL (11.0-16.0); IMMATURE GRANULOCYTE # 0.1 K/uL (0.0-0.3); IMMATURE GRANULOCYTE % 0.7 %; LYMPHOCYTE # 1.1 K/uL (0.8-4.0); LYMPHOCYTE % 10.5 %; MCH 28.5 pg (27.0-34.0); MCHC 31.8 gm/dL (32.0-36.5); MCV 89.5 fl (83.0-98.0); MONOCYTE % 9.6 %; MPV 9.4 fl (9.4-12.4); NEUTROPHIL # (ANC) 7.9 K/uL (1.4-9.0); NEUTROPHIL % 78.6 %; NRBC % 0 /100WBC (0-0.00); PLATELET COUNT 210 K/uL (150-450); RBC 4.46 M/uL (3.50-5.50); RDW-CV 14.8 % (11.9-14.6)
[2016-12-09 16:21] LABS: ALBUMIN 2.8 gm/dL (3.5-5.0); ANION GAP 10.2 (10.0-19.0); BLOOD UREA NITROGEN 30 mg/dL (6-24); CHLORIDE 97 mMol/L (96-110); CO2 32 mMol/L (22-32); CREATININE 0.8 mg/dL (0.6-1.3); PHOSPHORUS 3.5 mg/dL (2.5-4.9); POTASSIUM 3.2 mMol/L (3.7-5.1); SODIUM 136 mMol/L (135-145)
[2016-12-09 16:23] LABS: ESTIMATED GFR (MDRD EQUATION) > 60
== END ==
LOC: LCNC 15:56
PROVIDERS: Internal Medicine Interventional Cardiology
DX: R00.0 Tachycardia, unspecified (principal)

== ENCOUNTER 2017-02-05 11:05 | Inpatient (IN) | payer MEDICARE, OTHER ==
[~2017-02-05] VITALS: Ht 170.2 cm; Wt 60.9 kg
--- NOTE | ~2017-02-05 | CON ---
PATIENT'S NAME: TONYA HOFFMANN [facility] AGE: 71 Y [address] ROOM: [address] [address] LOCATION: GPCU ADMIT DATE: 02/05/2017 Consultation DISCHARGE DATE: 02/10/2017 FAMILY PHYSICIAN: Tri Serrano MD ATTENDING PHYSICIAN: Yulissa Modi DATE OF CONSULTATION: 02/05/2017 REFERRING PHYSICIAN: Gustabo Montes MD INDICATION: Shortness of breath. HISTORY OF PRESENT ILLNESS: This is a 71-year-old male with a history of severe COPD, chronic respiratory failure, and other comorbidities, well-known to Dr. Montes, admitted for shortness of breath. He was found to be in atrial fibrillation with RVR and placed on a Cardizem drip which he converted off in the ER. The patient reports increased fatigue over the last 2 weeks. No worsening cough. No wheezing. No fever or chills. He does note along with the fatigue, episodes of sweating. No chest pain. No lightheadedness or syncope. Because of his change in symptoms recently, he had a chest x-ray two days ago, that was personally reviewed by Dr. Montes and showed improvement compared to prior studies. PAST MEDICAL HISTORY: Includes, 1. COPD, history of hydropneumothorax, requiring thoracotomy with decortication. 2. CAD. 3. Cholecystectomy. 4. Appendectomy. 5. Chronic respiratory failure with O2 dependency. 6. Atrial fibrillation with RVR, currently being treated. ALLERGIES: SEE MAR. MEDICATIONS: See MAR. FAMILY HISTORY: Negative for any lung disease. SOCIAL HISTORY: Former smoker. Negative for alcohol or drug abuse. PATIENT'S NAME: TONYA HOFFMANN [facility] AGE: 71 Y [address] ROOM: [address] [address] LOCATION: GPCU ADMIT DATE: 02/05/2017 Consultation DISCHARGE DATE: 02/10/2017 FAMILY PHYSICIAN: Tri Serrano MD ATTENDING PHYSICIAN: Yulissa Modi REVIEW OF SYSTEMS: All review of systems were reviewed and are negative except for what is noted in the HPI. PHYSICAL EXAMINATION: VITAL SIGNS: Blood pressure 124/83, pulse 82, respirations 18, temperature 98.8, he is 94% on 4 L nasal cannula. GENERAL: This is a 71-year-old male, who is frail and appears slightly pale and in mild acute distress. HEENT. Head normocephalic and atraumatic. Eyes, clear. NECK: Supple. No adenopathy. No carotid bruits or JVD. LUNGS: Diminished at the left, otherwise, clear. No wheezes or rales. HEART: Regular rate and rhythm without murmur, gallop, rub. ABDOMEN: Soft, nontender, and nondistended. Bowel sounds x4. EXTREMITIES: No cyanosis, clubbing, or edema. DIAGNOSTIC DATA: WBC 9.1, hemoglobin 12.3, hematocrit 38.7, platelets 178. Sodium 136, potassium 5.3, BUN 39, creatinine 1, troponin elevated at 0.71. D-dimer 1.46. TSH 9.6. ABG: pH 7.35, pCO2 38, pO2 120, bicarb 21, procalcitonin less than 0.05. ASSESSMENT: 1. Acute on chronic respiratory failure most likely due to non-ST elevated myocardial infarction. 2. Chronic obstructive pulmonary disease appears stable without exacerbation. 3. Chronic left hydropneumothorax, stable. 4. Non-ST elevated myocardial infarction. PLAN: We will follow up regarding Cardiology's recommendations; otherwise, recommend continue with bronchodilator inhaled cortical steroids that he was previously on at home. No need for bronchoscopy at this time. Okay to use BiPAP as needed. Thank you for the consult and opportunity to participate in the patient's care. RADHA WILLSON APRN FOR GUSTABO MONTES MD PATIENT'S NAME: TONYA HOFFMANN [facility] AGE: 71 Y [address] ROOM: [address] [address] LOCATION: GPCU ADMIT DATE: 02/05/2017 Consultation DISCHARGE DATE: 02/10/2017 FAMILY PHYSICIAN: Tri Serrano MD ATTENDING PHYSICIAN: Yulissa Modi/maria eugenia /[id number] d: 02/23/17 1253 t: 02/27/17 1049, CONSULTATION REPORT
--- NOTE | ~2017-02-05 | ER ---
PATIENT'S NAME: TONYA HOFFMANN [facility] AGE: 71 Y [address] ROOM: [address] [address] LOCATION: GPCU ADMIT DATE: 02/05/2017 ER/Outpatient Report DISCHARGE DATE: FAMILY PHYSICIAN: YOLIE DERAS MD ATTENDING PHYSICIAN: Yulissa Modi CHIEF COMPLAINT: Shortness of breath and palpitations. HISTORY OF PRESENT ILLNESS: The patient arrives by EMS. He was found to be short of breath, given breathing treatment, and found to be tachycardic in the 200s with SVT on the monitor. EMS did administer breathing treatment as well as adenosine at 6 and 12 mg. The patient had no response whatsoever to those doses. The patient has an extensive history of chest issues over the last several months. He has been admitted for left thoracotomy with decortication secondary to entrapped lung from abscess that has ruptured. He has spent several months in the hospital. His baseline heart rate is approximately 110, in atrial fibrillation according to the . He does take Eliquis based on the med list review. The exact onset is unknown of his SVT, but it was most likely this morning. He takes multiple pain medications routinely. He has not tried anything for this issue. Per EMS occasionally, he will slow down to the 110 region in atrial fibrillation spontaneously but does not produce sustain results. There has been no hypotension prior to arrival, however, during evaluation in the ER, the patient did develop hypotension. Past medical history, social history, medications, and allergies are as documented on the record, have been reviewed by me including review of his prior hospitalization records. REVIEW OF SYSTEMS: All systems were reviewed and negative except as noted in the HPI. PHYSICAL EXAMINATION: VITAL SIGNS: Blood pressure 156/91, pulse 194, respiratory rate is 28, temperature 97.7, SpO2 is 91% on room air. Pain 0/10. GENERAL: An age-appropriate male. Very poor color, in obvious distress, in no outward signs of pain, sitting upright on the exam table. NEURO: The patient is somnolent, but awake, does answer questions appropriately. GCS appears to be 13, slightly confused with eyes opening to command only. No focal deficits or asymmetry otherwise appreciated. HEENT: Normocephalic, atraumatic. Eyes are PERRL. Oropharynx is clear. Teeth in poor repair. NECK: Supple. Trachea is slightly deviated to the left. No adenopathy. CHEST: Diminished air entry bilateral, more prominent on the left side. PATIENT'S NAME: TONYA HOFFMANN [facility] AGE: 71 Y [address] ROOM: [address] [address] [facility] ADMIT DATE: 02/05/2017 ER/Outpatient Report DISCHARGE DATE: FAMILY PHYSICIAN: YOLIE DERAS MD ATTENDING PHYSICIAN: Yulissa Modi HEART: Tachycardic. No clear murmurs appreciated. ABDOMEN: Soft, nontender, and nondistended. No rebound or guarding. EXTREMITIES: Cool, mottled, but cap refill is present in all extremities. Pulses are present. SKIN: Cool and damp. LABORATORY DATA AND X-RAYS: Chest x-ray with left-sided opacification, consistent with prior pneumonectomy. Chest CT without findings of PE, though limited by prior pathology, no clearly new abnormalities. Hydropneumothorax in the left side with tracheal deviation consistent with prior. Lab: CRP 0.53, free T4 0.9. D-dimer is 1.46. CBC with no abnormalities of the white count, hemoglobin or platelets. INR is 1.1. CMS with an elevated potassium of 5.3, glucose of 211, BUN is 39, creatinine 1.0. GFR is greater than 60. LFTs are elevated at 134 and 160 respectively. CK-MB is 5.5, troponin I is 0.781. Procalcitonin is below threshold. TSH is 9.61. EKG: SVT rate of approximately 200 beats per minute with no ischemia. Repeat EKG likely atrial fibrillation, controlled rate approximately 105 with no ischemic changes. IMPRESSION: 1. Supraventricular tachycardia, requiring intervention. 2. Transient hypotension, resolved. 3. Hyperkalemia. 4. Elevated troponin and CK-MB. 5. Hypothyroidism. 6. Severe left-sided thoracic disease. EMERGENCY DEPARTMENT COURSE: The patient was seen and evaluated as above. He was seen emergently based on his vital signs. As he has not responded to adenosine but he is not unstable, we will attempt diltiazem. However, upon initiation of diltiazem drip, the patient did drop his pressures to 80s over 50s. At that time, we elected to do attempt electrical cardioversion, however, after completion of the bolus of diltiazem, the patient's heart rate stabilized at approximately 105, and his blood pressure had improved at that time. His color improved markedly, and he began to feel much better. His D-dimer was elevated, and thus a CT of the chest was obtained and was negative for PE. Dr. Modi was consulted and a diltiazem drip was continued. He was given fentanyl for pain. Dr. Modi will admit him to the hospital for further evaluation and treatment of this SVT. This seems to be persistent in the setting of long- standing atrial fibrillation. He will need to address his other abnormalities as above, not consistent with sepsis or other acute finding. PATIENT'S NAME: TONYA HOFFMANN [facility] AGE: 71 Y [address] ROOM: [place] [address] [facility]: [facility] ADMIT DATE: 02/05/2017 ER/Outpatient Report DISCHARGE DATE: FAMILY PHYSICIAN: YOLIE DERAS MD ATTENDING PHYSICIAN: Yulissa Modi CRITICAL CARE: 41 minutes of critical care time was spent on this patient. Care was warranted for unstable cardiac disease. Care was provided in the patient's assessment. the patient's reassessment, review of medical records, and charts, consulting with another provider, ordering and initiating a diltiazem drip, preparing for cardioversion in the setting of hypotensive, atrial fibrillation with RVR versus SVT, as well as obtaining evaluation for other cardiac etiology. The patient did stabilize and was taken to the PCU for further evaluation and treatment by Dr. Modi. MD MILEY JETT/maria eugenia /[id number] d: 02/05/17 2343 t: 02/16/17 0709, OUTPATIENT REPORT
--- NOTE | ~2017-02-05 | HP ---
PATIENT'S NAME: NEVILLE MARC [facility] AGE: 71 Y [address] ROOM: [place] [address] LOCATION: GPCU ADMIT DATE: 02/05/2017 History & Physical DISCHARGE DATE: FAMILY PHYSICIAN: YOLIE DERAS MD ATTENDING PHYSICIAN: Yulissa Modi DATE OF SERVICE: HISTORY OF PRESENT ILLNESS: Mr. Neville Marc is a 71-year-old male patient, whom I saw for the first time in May 2016 for severe pulmonary hypertension with pulmonary pressures in the low 70s. It turned out that he was having hypoxia of significant degree from COPD from chronic smoking as well as at that time he had a spontaneous pneumothorax, which contributed to the whole thing. He was placed on continuous oxygen therapy, and 2 months later rechecked with the right heart catheterization revealed that his mean pulmonary artery pressure was 26, so his severe pulmonary hypertension had significantly improved. He has had intermittently problem with paroxysmal atrial fibrillation, of which he was not terribly symptomatic, but he started to have problems with infection involving hydropneumothorax on the left side after the spontaneous pneumothorax and had multiple surgeries done there, and he has been getting progressively weaker, and lately, he was found to be more symptomatic than before when he goes into more rapid rhythm. Within the last 3 months, he was seen in the office because of atrial fibrillation with rapid ventricular response, which was noted first by Dr. Teodora Soliman in her office and sent down. His Lopressor dose was increased and was started on Betapace, and the plan is to cardiovert him at some point after he has been on the anticoagulation for about 3 months. His CHADS2-VASc score has been 3. Today, he comes into the emergency room after having had a really bad morning this morning feeling very weak and short of breath and extremely pale and somewhat sweaty. His initial blood pressure was 150/80, and shortly after that, it dropped after he was started on Cardizem, but his heart rate slowed down from the 150s to 180s down to 100s, which is where he normally has been lately, so no cardioversion was performed, and the patient at this time states that he has no chest pains. He has been in functional class III to IV on 2 L of nasal cannula. He denies any paroxysmal nocturnal dyspnea or orthopnea. He does not to use any CPAP products. He denies any lightheadedness, dizziness, syncope, presyncope, palpitations, or ankle swelling. He has been nauseated every other day at least and vomits for the past month. He also intermittently holds his upper chest mostly in the evenings with the pain, but he thinks it is due to previous surgery on his muscle there. It is 7 on a scale of 1-10. He tries to take some pain pills if the pain gets too PATIENT'S NAME: NEVILLE MARC [facility] AGE: 71 Y [address] ROOM: [place] [address] [facility] ADMIT DATE: 02/05/2017 History & Physical DISCHARGE DATE: FAMILY PHYSICIAN: YOLIE DERAS MD ATTENDING PHYSICIAN: Yulissa Modi, and the pain resolves whether he takes the medication or not in about 15 minutes or so. There is no radiation to the pain or associated features other than sweating. The patient is currently not on any regular exercise program. He had a medium- sized inferolateral fixed defect with known ischemia but with normal ejection fraction. The patient has history of hypertension, and he quit smoking recently. His lipids are unknown, and he is not a diabetic and has no family history of premature coronary artery disease. There is no history of congestive heart failure, rheumatic fever, or ID. MEDICATIONS: His current list of medications are: 1. Promethazine with codeine syrup 5 mL 4 times a day p.r.n. 2. ClearLax. 3. Ondansetron 4 mg 1 to 2 tablets every 6 hours p.r.n. vomiting. 4. Movantik 25 mg 1 tablet every morning. 5. Xanax 0.25 mg every 8 hours p.r.n. 6. Hydrocodone 5/325 one every 6 hours p.r.n. 7. Ventolin emergency inhaler p.r.n. 8. Luca 81 mg a day. 9. Ambien 10 mg at bedtime. 10. Lopressor 50 mg b.i.d. 11. Centrum Silver 1 a day. 12. Potassium 99 mg 2 a day. 13. Probiotic 2 a day. 14. Mucinex 1200 mg 2 a day. 15. Imitrex 100 mg 2 a day p.r.n. 16. Eliquis 5 mg b.i.d. 17. Potassium 20 mEq 1 tablet a day. 18. Betapace 80 mg b.i.d. 19. Lipitor 40 mg a day. 20. Lexapro 20 mg a day. 21. Duovent nebulizer 4 times a day. 22. Budesonide inhalers 2 times a day. 23. Brovana 2 times a day. 24. Chlorzoxazone 500 mg p.r.n. ALLERGIES: ROFLUMILAST, WHICH IS DALIRESP. PAST MEDICAL HISTORY: PATIENT'S NAME: NEVILLE MARC [facility] AGE: 71 Y [address] ROOM: [id number] [place], [place] [address] [facility] ADMIT DATE: 02/05/2017 History & Physical DISCHARGE DATE: FAMILY PHYSICIAN: YOLIE DERAS MD ATTENDING PHYSICIAN: Yulissa Modi 1. 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 2. Cholecystectomy. 3. Appendectomy. 4. Bilateral carpal tunnel syndrome surgery. 5. History of migraine headaches. 6. Corrective lenses. 7. Severe COPD. 8. Chronic back ache secondary to scoliosis. 9. Multiple surgeries for his left-sided hemopneumothorax, which is infected. 10. The patient has a history of multiple surgeries in the left thorax. SOCIAL HISTORY: The patient is . He denies abusing alcohol. His sleep is fair, but he has lost a fair amount of weight, and he looks very pale. FAMILY HISTORY: No premature coronary artery disease. REVIEW OF SYSTEMS: 1. Cleft lip. 2. Progressively worsening weakness. PHYSICAL EXAMINATION: VITAL SIGNS: On examination, his blood pressure is 130/80, heart rate is in the 100 on Cardizem 5 mg/minute, and his rhythm is probably atrial fibrillation with 2:1 block, respiration is 15, afebrile. HEENT: Normal. NECK: Supple with no JVD, thyromegaly, lymphadenopathy, or carotid bruit. PMI is not well located. First and second heart sounds are regular. There are no added sounds or murmurs. CHEST: Clear to auscultation. ABDOMEN: Soft and nontender. Bowel sounds are normally present. ASSESSMENT: 1. The patient becoming unstable hemodynamically secondary to atrial fibrillation with rapid ventricular response. He was under reasonably good control. The reason for his instability is not clearly understood at this time. Recommendations:. a. His initial lab evaluation revealed normal EKG without any significant ST-T wave changes consistent with aortic stenosis. b. His troponins are elevated significantly. Cannot rule out non-ST segment elevation myocardial infarction. c. Ongoing weakness. d. Severe collapse of the left lung. PATIENT'S NAME: NEVILLE MARC [facility] AGE: 71 Y [address] ROOM: [place] [address] LOCATION: [facility] ADMIT DATE: 02/05/2017 History & Physical DISCHARGE DATE: FAMILY PHYSICIAN: YOLIE DERAS MD ATTENDING PHYSICIAN: Yulissa Modi RECOMMENDATIONS: We will rule him out. Recheck his echocardiogram. He did have a Lexiscan Cardiolite study, which showed inferolateral wall fixed defect. He has not had a cardiac catheterization, even though his family seem to mistake the right heart catheterization with cardiac catheterization. Given his Eliquis intake, we will have discontinue the apixaban a few days before proceeding with cardiac catheterization. I do not believe that we need to stress him at this time. MD PRIYA KUMAR/maria eugenia /[id number] D: [id number] T: [id number] HISTORY & PHYSICAL
--- NOTE | ~2017-02-05 | CATH ---
Cardiac Diagnostic Report Demographics Patient Name SHUN Salas Gender Male Date of 1945 Age 71 year(s) Patient Number [id number] Date of Study 02/09/2017 Visit Number [id number] Room Number G6301 [place] [id number] Ht 170.18 cm Wt 60.9 kg Referring Rian Primary Physician Physician Yulissa Bartlett V Performing Rian Secondary Physician Physician Yulissa SOARES Diagnostic Rian Assisting Physician Physician Yulissa SOARES Interventional Physician Courtroom Reporter Physician Findings and Conclusions Diagnostic Findings and Conclusion Mildly elevated LVEDP at 13 Mildly elevated RV pressures in the 40's Small RCA with 80% lesions Proximal LAD 30 - 40% Diagnostic Recommendations Medical management for CAD for now Procedure Description The patient was brought to the diagnostic cardiac catheterization-EP laboratory in the fasting, non-sedated state. Informed consent was obtained in the written and verbal form after the risks and benefits were explained. The patient had no further questions and agreed to proceed. The planned puncture-incision site(s) were shaved and prepped with ChloraPrep and draped in the usual sterile manner. Conscious sedation, supplemental oxygen, and pain control medications were delivered by a registered nurse under physician guidance. Surface ECG rhythm, blood pressure measurement, and pulse oximetry were monitored throughout the procedure. Arterial access. The access site was infiltrated with lidocaine. The vessel was entered with the Seldinger technique. A sheath was advanced into the vessel and used for catheter placement. Venous access. The access site was infiltrated with 2% lidocaine. The vessel was entered with the Seldinger technique. A sheath was advanced into the vessel and used for catheter placement. Selective left coronary angiography. A catheter was advanced into the left coronary vessel ostium under Fluoroscopic guidance. Contrast was injected by hand. Images were obtained in multiple projections. Selective right coronary angiography. A catheter was advanced into the right coronary vessel ostium under fluoroscopic guidance. Contrast was injected by hand. Images were obtained in multiple projections. Left heart catheterization. A catheter was advanced across the aortic valve to the left ventricle under fluoroscopic guidance. Resting hemodynamics were obtained. Right heart catheterization. A Archbold Rasheeda catheter was successfully advanced to the right atrium, right ventricle, pulmonary artery, and pulmonary artery wedge position under fluoroscopic guidance. Resting hemodynamics were obtained. Measurements included pressures, arterial and venous oxygen saturation samples, and cardiac output. The Archbold was removed without difficulty. Arterial and Venous hemostasis was achieved. The patient was transferred to a regular nursing floor via cart accompanied by a nurse. The patient left the laboratory in stable condition. Diagnostic Cath Status: Elective Procedure Procedure Type Diagnostic procedure:Angiography:, Right and Left Heart Cath, Coronary Angios Indications: Pulmonary hypertension. The procedure was explained in detail to the patient. Risks, complications and alternative treatments were reviewed. Written consent was obtained. Angiographic Findings Dominance: Left Cardiac Arteries and Lesion Findings LMCA: Minor Luminal Irregularities. LAD: Single stenosis.Diag 1 - luminal irregularities Lesion on Prox LAD: Proximal subsection.40% stenosis 12 mm length . LCx: Minor Luminal Irregularities. RCA: Non-dominant Ramus: Single stenosis.1 1/2 - 2 mm Lesion on Ramus: Mid subsection.80% stenosis 10 mm length . Coronary Tree Procedure Data Procedure Date Date: 02/09/2017Start: 01:44 PMEnd: 02:40 PM Entry Locations - Retrograde Percutaneous access was performed through the Right Femoral artery (Primary location). A 7 Fr sheath was inserted. Hemostasis was successfully obtained using Angio-Seal STS PLUS ([place]). - Antegrade Percutaneous access was performed through the Right Femoral vein. A 6 Fr sheath was inserted. Hemostasis was successfully obtained using Manual Compression. Closure Comments: To be removed in 3 hours.. Procedure Medications Order and Administration + + +--------+ + !Time !Medication !Dosage !Route ! + + +--------+ + !02/09/2017 01:42 PM !Cardizem !5 mg/hr !I.V. drip ! + + +--------+ + !02/09/2017 01:46 PM !Versed !1 mg !I.V. ! + + +--------+ + !02/09/2017 02:02 PM !0.9% NaCl !100 ml !I.V. drip ! + + +--------+ + !02/09/2017 02:25 PM !Heparin (ACC_3) ! !I.V. drip ! + + +--------+ + Devices Used - A6 Fr. Balloon Wedge Catheterwas used for:Right heart cath. - A6 Fr. BS JR 4 Diag. Catheterwas used for:Right coronary angiography. - A6 Fr. BS JL 4 Diag. Catheterwas used for:Left coronary angiography. Contrast Material - Isovue [id number] ml Fluoroscopy Time: Diagnostic: 12:42 minutes. Total: 12:42 minutes. Fluoroscopy Dose: Diagnostic: 1259 mGy. Total: 1259 mGy. Estimated Blood Loss: 20 ml. Medical History Allergies - Other:(Daliresp). - Other:(Roflumilast). Risk Factors The patient risk factors include:chronic lung disease, last creatinine: 0.7 mg/dl, creatinine clearance: 84.58 ml/min and Current/Recent(w/in 1 year) tobacco use. Admission Data Admission Date: 02/05/2017 Admission Time: 02:09 PM Admit Source: [facility] Insurance Payors: Medicare. Clinical Evaluation Leading to Procedure - The patient's CAD presentation was assessed as: Non-STEMI. - The patient's anginal syndrome during the past two weeks was assessed as: Class II according to the [place] Cardiovascular Society Classification System (CCS). Anti-anginal medications were prescribed during the past two weeks. The medication is: Beta Blockers. Hemodynamics Condition: Rest O2 Consumption: Estimated: 194.88Heart Rate: 65 bpm Pressures (mmHg) +-----+ + !Site !Pressure ! +-----+ + !RA ! (14) ! +-----+ + !RV !41/3 ,13 ! +-----+ + !LV !93/9 ,13 ! +-----+ + !LV !108/3 ,11 ! +-----+ + !AO !97/57 (74) ! +-----+ + Shunts Oxygen Values O2 Capacity 137.36 O2 Consumption 194.88 Discharge Data Discharge Date: 02/10/2017 Hospital Status: Inpatient Signatures dtt: Yulissa Modi dtd: 02/09/17 1344 Physician Self Edit
--- NOTE | ~2017-02-05 | DS ---
PATIENT'S NAME: TONYA HOFFMANN [facility] AGE: 71 Y [address] ROOM: [address] [address] LOCATION: GPCU ADMIT DATE: 02/05/2017 Discharge Summary DISCHARGE DATE: 02/10/2017 FAMILY PHYSICIAN: Tri Serrano MD ATTENDING PHYSICIAN: Yulissa Modi DISCHARGE DIAGNOSES: 1. Tachycardia-mediated cardiomyopathy. 2. Oiwczbude-pz-neuwykw atrial flutter/fibrillation rate. 3. Pulmonary pressures are back up to severe pulmonary hypertension secondary to probably lung. 4. Severe chronic obstructive pulmonary disease. 5. Severely dilated atria. 6. Number atrial fibrillation with rapid ventricular response. 7. Spontaneous pneumothorax on the left side resulting in multiples surgeries after it became infected. 8. History of right-sided hydropneumothorax. HOSPITAL COURSE: The patient was initially ruled out for PE in the emergency room. A small dose of Cardizem slowed him down reasonably and he was in atrial flutter with rapid ventricular response. He remained reasonably stable when he was in the hospital and an echocardiogram revealed an ejection fraction of about 25% which is significantly lower than his previous ejection fractions. This was felt to be due to probably tachycardia-mediated cardiomyopathy. He had a catheterization done which revealed mild LVEDP elevation of 13. His RV pressure was 40. His right coronary artery was small and had an 80% lesion and proximal LAD had a 30% to 40% lesion. His coronary artery disease could be managed with medication and is what the plan was. His echocardiogram, however, had shown a very large right atrium and his left atrium was also significantly dilated. It seems very unlikely that we will be able to keep him in regular rhythm at this point. It is very clear during the hospitalization that we are not going to be able to control his rate with medications. I thought that we will build up his strength a little bit before get him to AV node ablation and pacemaker placement. So, he is being discharged home with that plan in mind with discharge medications and I will see him within a matter of 2 to 3 days to formulate a plan and solidify it based on how he does as an outpatient. If his heart rate comes under control and remains under control, we will allow him some time to get stronger. DISCHARGE MEDICATIONS: 1. Apixaban 5 mg twice a day. 2. Atorvastatin 40 mg a day. 3. Lexapro 20 mg a day. 4. Guaifenesin 600 mg twice a day. 5. Metoprolol 100 mg b.i.d. PATIENT'S NAME: TONYA HOFFMANN [facility] AGE: 71 Y [address] ROOM: [place] [address] LOCATION: [facility] ADMIT DATE: 02/05/2017 Discharge Summary DISCHARGE DATE: 02/10/2017 FAMILY PHYSICIAN: Tri Serrano MD ATTENDING PHYSICIAN: Yulissa Modi 6. ClearLax. 7. Zolpidem 10 mg at every night. 8. Pulmicort one vial inhaler twice a day. 9. Hydrocodone/acetaminophen 1 to 2 tablets every 4 hours as needed. 10. Chlorzoxazone p.r.n. 11. Promethazine and codeine p.r.n. 12. Combivent 4 times a day. 13. Oxygen one unit. 14. Imitrex p.r.n. 15. Potassium chloride 99 mg twice a day. 16. Albuterol inhalers every 6 hours as needed. 17. Ondansetron 4 mg p.o. p.r.n. nausea. 18. Lactobacillus. 19. Brovana one vial inhaled twice a day. 20. Parafon 500 mg 4 times a day p.r.n. spasm. 21. Digoxin 0.0625 mg a day. The patient will be seen within a couple of days as an outpatient in [facility]. MD PRIYA KUMAR/maria eugenia /[id number] d: 02/14/177 t: 02/24/17 1759, DISCHARGE SUMMARY
--- NOTE | ~2017-02-05 | ECHO ---
Transthoracic Echocardiography Report (TTE) Demographics Patient Name TONYA HOFFMANN Date of Study 02/06/2017 Patient Number [id number] Visit Number [id number] Date of 1945 Room Number G6301 Accession Number [id number] Gender Male Age 71 year(s) Referring [facility] [employer] Marino Hand RVT, Physician RDCS Physician Interpreting Rian Duenas Fagot Heater Helper Physician MD Supervising Ordering Physician Rian Duenas MD/ZACHARIAHP Nurse Stress Sale Professional Digital Marketing Conclusions Contractility Score Summary At rest the following contractility abnormalities were noted: Hypokinesis of the Mid nadiya-lateral, the Mid inferior, the Mid infero-lateral, the Apical inferior, the Apical lateral, the Basal inferior, the Basal nadiya-lateral and the Apical cap segments; Akinesis of the Mid anterior, the Mid nadiya-septal, the Mid infero-septal, the Apical septal, the Basal nadiya-septal, the Basal infero-septal, the Apical anterior and the Basal anterior segments. Contractility of all other segments appeared normal. Summary Technically difficult exam due to thin body stature. The estimated left ventricular ejection fraction is 20-25% due to severe diffuse hypokinesia involving all LV segments without any RWMAs. Mild concentric left ventricular hypertrophy. Mild to moderately dilated LA with increased LA pressures. Mild MR. Aortic sclerosis. Mildly dilated right ventricle with mildly reduced right ventricular function. The right atrium is severely dilated. Dilated IVC with poor inspiratory collapse consistent with elevated RA pressure. Severe tricuspid regurgitation by color Doppler. There is moderate to severe pulmonary hypertension. The pulmonary pressure (RVSP) is 65 mmHg. Mild pulmonic valve regurgitation by color Doppler with multiple jets. The pulmonary artery and the the branches appear dilated. The aortic valve is mildly sclerotic. Pleural effusion present. Procedure Type of Study TTE procedure:2D Echocardiogram. Procedure Date Date: 02/06/2017 Start: 07:50 AM Study Location: Inpatient Portable Technical Quality: Adequate visualization Indications:Atrial Fibrillation w/ RVR. Appropriate Use Criteria: 8 Patient Status: Routine Rhythm: Atrial fibrillation with RVR HR: 105 bpm BP: 109/76 mmHg Allergies - Other:(Daliresp). M-Mode/2D Measurements LV Diastolic Dimension: 4.61 cm LV Systolic Dimension: 3.73 cm LV Septum Diastolic: 1.48 cm LV PW Diastolic: 1.15 cm AO Root Dimension: 2.6 cm Cardiac Output: 2.34 l/min AV Cusp Separation: 1.9 cm RV Diastolic Dimension: 3.54 cm LA Dimension: 4 cm LA volume: 38 ml LVOT: 2 cm RV Base: 4.97 cm LVOT VTI: 7.09 cm RV Mid: 3.74 cm LV Stroke volume: 22.26 ml RV Length: 5.37 cm TAPSE: 1.43 cm TDI-S': 8.88 cm/s Doppler Measurements AV Peak Velocity: 0.97 m/s MV Peak E-Wave: 0.93 m/s AV Peak Gradient: 3.73 mmHg MV Peak A-Wave: 0.28 m/s AV Mean Gradient: 3 mmHg MV E/A Ratio: 3.35 LVOT Peak Velocity: 0.39 m/s MV P1/2t: 39 msec TR Gradient:45.43 mmHg PV Peak Velocity: 0.45 m/s Estimated RAP:20 mmHg PV Peak Gradient: 0.81 mmHg Estimated RVSP: 65 mmHg Estimated PASP: 65.43 mmHg E' Septal Velocity: 0.06 m/s A' Septal Velocity: 0.03 m/s E' Lateral Velocity: 0.11 m/s A' Lateral Velocity: 0.07 m/s Findings Left Ventricle Mild concentric left ventricular hypertrophy.Severe LV dysfunction due to severe diffuse hypokinesia involving all LV segments without any RWMAs.LVEF:25%. Right Ventricle Mildly dilated right ventricle with mildly reduced right ventricular function. Left Atrium Mild to moderately dilated LA. Increased LA pressures. There is no evidence of patent foramen ovale or atrial septal defect by color Doppler. Right Atrium The right atrium is severely dilated. Dilated IVC with poor inspiratory collapse consistent with elevated RA pressure. Mitral Valve Mild mitral regurgitation by color Doppler. Aortic Valve The aortic valve is mildly sclerotic. Tricuspid Valve Severe tricuspid regurgitation by color Doppler. There is severe pulmonary hypertension. The pulmonary pressure (RVSP) is 65 mmHg. Pulmonic Valve Mild pulmonic valve regurgitation by color Doppler with multiple jets. Pericardial Effusion No evidence of pericardial effusion. Miscellaneous Visualized portions of the aortic root and ascending aorta appear normal in size. The pulmonary artery and the the branches appear dilated. Pleural Effusion Pleural effusion present. Contractility Score LV regional wall motion:(0-Non visualized 1-Normal 2-Hypokinesis 3-Akinesis 4-Dyskinesis 5-Aneurysm) Signature dtt: Yulissa Modi dtd: 02/06/17 0750 Physician Self Edit
--- NOTE | ~2017-02-05 | CON ---
PATIENT'S NAME: TONYA HOFFMANN [facility] AGE: 71 Y [address] ROOM: [place] [address] LOCATION: GPCU ADMIT DATE: 02/05/2017 Consultation DISCHARGE DATE: FAMILY PHYSICIAN: YOLIE DERAS MD ATTENDING PHYSICIAN: Yulissa Modi DATE OF CONSULTATION: 02/06/2017 REFERRING PHYSICIAN: GUSTABO MONTES MD REASON FOR CONSULTATION: Back pain. HISTORY OF PRESENT ILLNESS: The patient is a 71-year-old male with an extensive list of past medical problems. One of those includes chronic low back pain, currently on morphine sulfate and Parafon prescribed by Dr. Patel of Pain Management. The patient was admitted with a non-STEMI yesterday and keeps complaining of back pain and a hospitalist consult was requested. I discussed the diagnosis with the patient and his , who reported to me that he is "scoliosis" and has been seen by a plant specialist in [place], [place]. He unfortunately was not offered any surgical options. This is why he gets Pain Management with Dr. Patel. At this point, his morphine sulfate and Parafon have been restarted. The patient and report that no other muscle relaxants have provided significant relief, though they can only tell me that he has tried Flexeril. REVIEW OF SYSTEMS: Reviewed and is negative aside from pertinent positives mentioned above. PAST MEDICAL HISTORY: 1. COPD. 2. History of hydropneumothorax requiring a thoracotomy with decortication. 3. Coronary artery disease. 4. Cholecystectomy. 5. Appendectomy. 6. Chronic hypoxic respiratory failure with O2 dependency. 7. Atrial fibrillation with rapid ventricular response, currently being treated. SOCIAL HISTORY: Negative for alcohol or drug abuse. CURRENT MEDICATIONS: Include, PATIENT'S NAME: TONYA HOFFMANN [facility] AGE: 71 Y [address] ROOM: [place] [address] LOCATION: GPCU ADMIT DATE: 02/05/2017 Consultation DISCHARGE DATE: FAMILY PHYSICIAN: YOLIE DERAS MD ATTENDING PHYSICIAN: Yulissa Modi 1. Heparin drip. 2. The patient is on Parafon. 3. MiraLAX. 4. Multivitamin. 5. Aspirin. 6. Escitalopram. 7. Atorvastatin. 8. Morphine sulfate 15 p.o. b.i.d. 9. Ambien. 10. Lactobacillus. 11. Guaifenesin. 12. Sotalol. 13. Metoprolol. 14. Sumatriptan. 15. Promethazine with codeine. 16. Zofran. 17. Naloxegol. 18. Almo. 19. Budesonide. 20. Xanax. 21. DuoNeb. 22. Cardizem drip. FAMILY HISTORY: Reviewed and noncontributory due to known underlying etiology for his presentation. PHYSICAL EXAMINATION: VITAL SIGNS: Temperature 97.6, pulse is in the low 100s, respirations 16, blood pressure , saturating 97% on 2 L nasal cannula. GENERAL: Appears as an elderly, frail, chronically ill male, in no acute distress. NEUROLOGICAL: Nonfocal. EYE: Pupils are equal and reactive to light. LYMPHATIC: No cervical lymphadenopathy. ENDOCRINE: No thyromegaly. LUNGS: Diminished breath sounds in all reilly. HEART: Rate is irregularly irregular. GI: Abdomen is soft, nontender, and nondistended. VASCULAR: Exam reveals 2+ pedal pulses. STUDIES: No imaging studies of his low back are available. IMPRESSION AND RECOMMENDATIONS: PATIENT'S NAME: TONYA HOFFMANN [facility] AGE: 71 Y [address] ROOM: [place] [address] [facility] ADMIT DATE: 02/05/2017 Consultation DISCHARGE DATE: FAMILY PHYSICIAN: YOLIE DERAS MD ATTENDING PHYSICIAN: Yulissa Modi This is a 71-year-old male who unfortunately has a nonreversible spinal condition, likely scoliosis and chronic lower back pain. His morphine sulfate as well as Almo and Parafon have been resumed. At this point, we will offer him a heat pack to his back as that may provide some relief. We will also make Skelaxin available to him, as I am not sure if he has tried this medicine. We will request for his consultation with the back specialist in [place], [place], to be faxed over to us. Additional management will depend on clinical course. We will follow with you. Thank you for involving us in the care of this gentleman. Time dedicated to this consult is 15 minutes. MD CHAU VARNER/maria eugenia /[id number] d: 02/07/17 0259 t: 02/21/17 1427, CONSULTATION REPORT
[~2017-02-05 11:05] MED LIST changes: -BETAPACE (GENER80 MG; -BROVANA15 MCG/2 M INH; -CENTRUM SILVER1 EAC5 PO; -CLEARLAX510 GM PO; -ELIQUIS5 MG PO; -LANOXIN62.5 MCG PO; -LOPRESSOR100 MG PO; -MOVANTIK25 MG; -PARAFON FORTE500 MG; -PROBIOTIC1 EAC1 PO; -PULMICORT0.5 MG/21 INH; -ZOFRAN ODT4 MG PO
[2017-02-05 12:09] LABS: BASOPHIL % 0.2 %; EOSINOPHIL # 0.1 K/uL (0.0-0.5); EOSINOPHIL % 1.2 %; HEMATOCRIT 38.7 % (37.0-53.0); HEMOGLOBIN 12.3 g/dL (11.0-16.0); IMMATURE GRANULOCYTE # 0.1 K/uL (0.0-0.3); IMMATURE GRANULOCYTE % 0.7 %; LYMPHOCYTE # 1.3 K/uL (0.8-4.0); LYMPHOCYTE % 14.7 %; MCH 29.9 pg (27.0-34.0); MCHC 31.8 gm/dL (32.0-36.5); MCV 94.2 fl (83.0-98.0); MONOCYTE # 0.7 K/uL (0.0-1.0); MONOCYTE % 7.9 %; MPV 9.8 fl (9.4-12.4); NEUTROPHIL # (ANC) 6.9 K/uL (1.4-9.0); NEUTROPHIL % 75.3 %; PLATELET COUNT 178 K/uL (150-450); RBC 4.11 M/uL (3.50-5.50); RDW-CV 18.1 % (11.9-14.6); WBC 9.1 K/uL (4.0-11.0)
[2017-02-05 12:10] LABS: PCO2 38 mmHg (35-45)
[2017-02-05 12:14] LABS: PO2 120 mmHg (80-90)
[2017-02-05 12:15] LABS: LACTATE 4.1 mEq/L (0.50-1.60)
[2017-02-05 12:16] LABS: INR - (THERAPEUTIC) 1.11 (0.92-1.07); PROTIME 11.7 SECONDS (9.8-11.4); PTT 25 SECONDS (25-32)
[2017-02-05 12:34] LABS: ALBUMIN 3.2 gm/dL (3.5-5.0); ALK PHOS 134 IU/L (33-138); ALT 160 IU/L (12-78); ANION GAP 15.3 (10.0-19.0); AST 134 IU/L (10-40); BLOOD UREA NITROGEN 39 mg/dL (6-24); CALCIUM 8.5 mg/dL (8.5-10.5); CHLORIDE 102 mMol/L (96-110); CO2 24 mMol/L (22-32); ESTIMATED GFR (MDRD EQUATION) > 60; POTASSIUM 5.3 mMol/L (3.7-5.1); SODIUM 136 mMol/L (135-145); TOTAL PROTEIN 6.4 g/dL (6.0-8.4)
[2017-02-05] MEDS ORDERED: CLEARLAX510 GM PO (16:09)
[2017-02-05] MEDS ORDERED: ZOFRAN ODT4 MG PO (16:11)
[2017-02-05] MEDS ORDERED: MOVANTIK25 MG (16:12)
[2017-02-05] MEDS ORDERED: PROBIOTIC1 EAC1 PO (16:23)
[2017-02-05] MEDS ORDERED: CENTRUM SILVER1 EAC5 PO (16:27)
[2017-02-05] MEDS ORDERED: LOPRESSOR100 MG PO (16:27)
[2017-02-05] MEDS ORDERED: BETAPACE (GENER80 MG (16:28)
[2017-02-05] MEDS ORDERED: BROVANA15 MCG/2 M INH (16:33)
[2017-02-05] MEDS ORDERED: PULMICORT0.5 MG/21 INH (16:33)
[2017-02-05] MEDS ORDERED: ELIQUIS5 MG PO (16:34)
[2017-02-05] MEDS ORDERED: PARAFON FORTE500 MG (16:37)
--- NOTE | 2017-02-05 17:08 | NUR ---
Pt is 71 y/o male admit for COPD/respiratory failure/afib w RVR/Non-stemi for . Allergy to Daliresp. REd and yellow bracelets on. Hx afib, migraines,CP,COPD,emphysema,pneumonia,chronic lower back pain,nocturia, constipation,anxiety,depression,panic attacks. Pt resides at home with . Wears O2 continuously at 2L. CAme through ED. Pulmonology to consult.
--- NOTE | 2017-02-05 17:27 | NUR ---
Significant Event: A/Ox3. SBP-120s. P-90-110s. SR/ST. Afebrile. 2L currently with saturations in the mid 90s. Dyspnic with exertion. Patient had one spell of SOB where he needed 6L of O2. After breathing treatment saturations came up and he was weaned down to 2L. L) FA IV infusing cardizem gtt at 5mg/hr and NS TKO at 5ml/hr. Up with 1A/walker. called and informed med rec is on the chart.
--- NOTE | 2017-02-06 04:15 | NUR ---
Significant Event: A/0X3. 1 ASSIST WITH WALKER AND GB. TURN Q 2 HRS SIDE TO SIDE. AFBRILE. VSS ON 2L CONTINUOUS. IV TO L) FA HAS NS AT TKO AND CARDIEZM RUNNING AT 5 MG/H. HR HAVE BEEN ANY WHERE FROM 70-LOW 100'S. WHEN PATIENT IS LOW 100'S IT LOOKS LIKE ST BUT WHEN HE IS 70-80S IT LOOKS LIKE A.FLUTTER. NORCO GIVEN X1 AND SCHEDULED MS CONTIN GIVEN AT HS FOR CHRONIC BACK PAIN. PATIENT WAS ABLE TO FIND SOME RELIEF AND REST COMFORTABLY OFF AND ON THROUGHOUT THE NIGHT. NO BM THIS SHIFT. VOIDS FINE. Follow up: CONTINUE WITH PLAN OF CARE. ECHO THIS AM.
--- NOTE | 2017-02-06 12:17 | NUR ---
Introduced self and care management services to patient and at bedside. Lives in [place]. assists him at home. Plan is to go home on discharge, only need identified is they would like to have a script for transport wheelchair she can get to take him to doctors appointments, left note on chart for physician to write one on discharge. Explained to her Medicare may not cover it, but script would save them some tax. She can get it at [facility] provider in [place] or she can take it to [facility] and purchase it less expensively there. She voices understanding. Social Science Teacher will follow.
[2017-02-06 14:01] LABS: BASOPHIL % 0.1 %; EOSINOPHIL % 0.2 %; HEMATOCRIT 32.5 % (37.0-53.0); HEMOGLOBIN 10.5 g/dL (11.0-16.0); IMMATURE GRANULOCYTE % 0.5 %; LYMPHOCYTE # 0.9 K/uL (0.8-4.0); LYMPHOCYTE % 10.6 %; MCH 29.6 pg (27.0-34.0); MCHC 32.3 gm/dL (32.0-36.5); MCV 91.5 fl (83.0-98.0); MONOCYTE # 1.1 K/uL (0.0-1.0); MONOCYTE % 13.3 %; MPV 9.5 fl (9.4-12.4); NEUTROPHIL # (ANC) 6.4 K/uL (1.4-9.0); NEUTROPHIL % 75.3 %; NRBC % 0.7 /100WBC (0-0.00); PLATELET COUNT 156 K/uL (150-450); RBC 3.55 M/uL (3.50-5.50); RDW-CV 18.3 % (11.9-14.6); WBC 8.5 K/uL (4.0-11.0)
[2017-02-06 14:14] LABS: INR - (THERAPEUTIC) 1.04 (0.92-1.07); PROTIME 10.9 SECONDS (9.8-11.4); PTT 25 SECONDS (25-32)
--- NOTE | 2017-02-06 17:10 | NUR ---
Significant Event: CARDIZEM GTT CONTINUES AT 5MG/HR WITH HR'S AT REST 70-90'S. WITH ACTIVITY, HR'S FOUND AT 120. SBAP 100-120'S. AFEBRILE. O2 REMAINS AT HOME DOSE OF 2L/NC WITH DIMINISHED LUNG SOUNDS THROUGHOUT. 2 TABS NORCO GIVEN X2 LAST AT 1520 WITH MINIMAL RELIEF. PATIENT NEEDS MUSCLE RELAXER HOWEVER WE DON'T CARRY HOME MED FOR RELAXER. HEPARIN GTT INITIATED WITH RATE 700 UNITS/HR VIA L) INNER FA. NEXT PTTHP AT 2300. CARDIZEM AND NS AT TKO VIA LEFT HAND PIV. 1PA WITH WALKER AND GAIT BELT. Follow up: HEART CATH THURSDAY. CONT TO MANAGE PAIN.
--- NOTE | 2017-02-07 05:19 | NUR ---
Significant Event: HOME MED PARAFON RESTARTED FOR MUSCLE SPASMS. PT RESTED OFF AND ON ALL NIGHT. O2 AT 2L ALL NIGHT. CARDIZEM AT 5 MG ALL NIGHT. HEPARIN INCREASED TO 900 UNITS/HR WITH A 3000 UNITS BOLUS X1. REMAINS AT BEDSIDE ALL NIGHT. Follow up:
--- NOTE | 2017-02-07 16:09 | NUR ---
SIGNIFICANT EVENT: Cardizem GTT continues at 5 mg/hour with HR's 90s-100s. Heparin is running at 1000U/hour. Next PTT HP at 1900. Beta pace was increased to 120 BID. AFEBRILE. O2 remains at home dose of 2L with diminished lung sounds, and absent lung sounds in LLL. 2 tabs of Chadwick given at 1600 with complaints of back pain. Patient was given muscle relaxer around 1200. 3 BM's this shift. remains at bedside. FOLLOW UP: Continue with current plan of care.
[2017-02-08 02:35] LABS: BASOPHIL % 0.2 %; EOSINOPHIL # 0.2 K/uL (0.0-0.5); EOSINOPHIL % 2.6 %; HEMATOCRIT 33.2 % (37.0-53.0); HEMOGLOBIN 10.7 g/dL (11.0-16.0); IMMATURE GRANULOCYTE # 0.1 K/uL (0.0-0.3); LYMPHOCYTE # 1.2 K/uL (0.8-4.0); LYMPHOCYTE % 19.9 %; MCH 29.8 pg (27.0-34.0); MCHC 32.2 gm/dL (32.0-36.5); MCV 92.5 fl (83.0-98.0); MONOCYTE # 0.7 K/uL (0.0-1.0); MONOCYTE % 10.4 %; MPV 9.1 fl (9.4-12.4); NEUTROPHIL # (ANC) 4.1 K/uL (1.4-9.0); NEUTROPHIL % 65.9 %; NRBC % 0.5 /100WBC (0-0.00); PLATELET COUNT 146 K/uL (150-450); RBC 3.59 M/uL (3.50-5.50); RDW-CV 18.4 % (11.9-14.6); WBC 6.2 K/uL (4.0-11.0)
[2017-02-08 03:01] LABS: ALBUMIN 3.1 gm/dL (3.5-5.0); ALK PHOS 105 IU/L (33-138); ALT 135 IU/L (12-78); ANION GAP 9.7 (10.0-19.0); AST 48 IU/L (10-40); BLOOD UREA NITROGEN 28 mg/dL (6-24); CALCIUM 8.5 mg/dL (8.5-10.5); CHLORIDE 104 mMol/L (96-110); CO2 27 mMol/L (22-32); CREATININE 0.7 mg/dL (0.6-1.3); ESTIMATED GFR (MDRD EQUATION) > 60; POTASSIUM 4.7 mMol/L (3.7-5.1); SODIUM 136 mMol/L (135-145); TOTAL BILIRUBIN 0.6 mg/dL (0.0-1.5); TOTAL PROTEIN 6.3 g/dL (6.0-8.4)
--- NOTE | 2017-02-08 04:12 | NUR ---
Significant Event: Patient is alert/oriented x3. Continues on Cardizem drip at 5 mg/hr with rates 90-low 100's. Other VSS. Remains on 2L O2 continuously. [place] given x1 last night, with relief. Heparin drip continues at 1100 units/hr, next PTT-HP to be drawn at 0830. Follow up: Continue to monitor per plan of care. Plan for heart cath on Thursday.
--- NOTE | 2017-02-08 15:33 | NUR ---
SIGNIFICANT EVENT: Patient is A/O x3. Continues on Cardizem drip-decreased from 10mg/hour to 5mg/hour at 1530 for HR's of 60-70s. Heparin continues at 1100U/hour. Next PTT HP at 2145. Afebrile. O2 remains at home dose of 2L at all times with diminished lung sounds, and absent lung sounds in LLL. Fentanyl patch put on at 1130 for lower back pain, to be taken off at 2330. 1 tab of [place] given this AM. remains at bedside. FOLLOW UP: Heart cath tomorrow-02/09.
--- NOTE | 2017-02-08 17:48 | NUR ---
Significant event: Cardizem gtt off at 1545 for HR 60-70's. HR as of 1740 is back to rates of 100's, restarting gtt and orders to titrate as needed per protocol, but do not d/c gtt without md order.
[2017-02-09 03:54] LABS: BASOPHIL % 0.2 %; EOSINOPHIL # 0.1 K/uL (0.0-0.5); EOSINOPHIL % 2.3 %; HEMATOCRIT 31.6 % (37.0-53.0); HEMOGLOBIN 10.1 g/dL (11.0-16.0); IMMATURE GRANULOCYTE % 0.7 %; LYMPHOCYTE # 1.1 K/uL (0.8-4.0); LYMPHOCYTE % 19.6 %; MCH 29.5 pg (27.0-34.0); MCV 92.4 fl (83.0-98.0); MONOCYTE # 0.6 K/uL (0.0-1.0); MONOCYTE % 11.2 %; MPV 9.2 fl (9.4-12.4); NEUTROPHIL # (ANC) 3.7 K/uL (1.4-9.0); NRBC % 0.4 /100WBC (0-0.00); PLATELET COUNT 136 K/uL (150-450); RBC 3.42 M/uL (3.50-5.50); RDW-CV 18.6 % (11.9-14.6); WBC 5.6 K/uL (4.0-11.0)
--- NOTE | 2017-02-09 05:37 | NUR ---
Significant Event: DIFFICULTY SLEEPING AT TIMES. NORCO 2 TABS GIVEN X1 AND HIS HOME MUSCLE RELAXER X1. REMAINS ON 2L O2. NPO AFTER MIDNIGHT FOR HEART CATH TODAY. VOIDING WELL PER URINAL. Follow up:
--- NOTE | 2017-02-09 12:41 | NUR ---
PT SCREENED D/T LOS. EST NEEDS: [id number] KCALS, 73-90 GM PROTEIN, 1 ML/KCAL FLUIDS. INTAKE ADEQUATE. NO NUTRITION-RELATED DIAGNOSIS IDENTIFIED. WILL ASSIST NEEDED.
--- NOTE | 2017-02-09 17:01 | NUR ---
SIGNIFICANT EVENT: Patient is A&O x3. Continues on Cardizem drip-decreased to 5mg/hour for HR's in 60s-70s. Heparin d/c'd. Heart cath this afternoon and was back to the room at 1515. No intervention to treat medically. Venous sheath in place-to be pulled at 1730. R) groin angio seal, gauze, tegaderm; c/d/i, soft, pulses 1+. O2 remains at home dose of 2L at all times with diminished lung sounds, and absent lung sounds in LLL. Lidocaine patch put on at 0955 for lower back pain-to be taken off at 2155. Digoxin initiated x 2 doses. SIGNIFICANT EVENT: Bedrest until 1930. Continue plan of care.
[2017-02-10 04:02] LABS: ANION GAP 7.8 (10.0-19.0); BLOOD UREA NITROGEN 17 mg/dL (6-24); CALCIUM 8.5 mg/dL (8.5-10.5); CHLORIDE 106 mMol/L (96-110); CO2 30 mMol/L (22-32); CREATININE 0.7 mg/dL (0.6-1.3); ESTIMATED GFR (MDRD EQUATION) > 60; MAGNESIUM 1.7 mg/dL (1.8-2.6); POTASSIUM 4.8 mMol/L (3.7-5.1); SODIUM 139 mMol/L (135-145)
--- NOTE | 2017-02-10 05:03 | NUR ---
Significant Event: A/O x3. Afebrile. some lower back pain. gave scheduled pain meds. HRs increased from 100 to 120-130s. Gave cardizem 15mg bolus x1. SBP 120s. Up 1 assist with walker. 2L o2, Ls clear/dim. Follow up: Continue to monitor per plan of care.
[2017-02-10] MEDS ORDERED: LANOXIN62.5 MCG PO (12:39)
--- NOTE | 2017-02-10 15:10 | NUR ---
PATIENT AND GIVEN WRITTEN DISMISSAL INSTRUCTIONS INCLUDING NEW HOME MEDICATION LIST WITH INFORMATION ON NEW MEDS, PRESCRIPTIONS, FOLLOW-UP APPOINTMENT TIMES, DIET AND ACTIVITY RESTRICTIONS. PATIENT AND BOTH VERBALLY STATE UNDERSTANDING OF INFORMATION DISCUSSED WITH RN. CHANGES WRITTEN TO PRINTED DISMISSAL INSTRUCTIONS AFTER DR BROWN NOTIFIED OF FAMILY/PATIENT CONCERNS. PIV'S REMOVED FROM BILATERAL FA'S WITH GAUZE/COBAN APPLIED. TELEMETRY DC'D AND PATIENT DRESSED. TAKEN TO FRONT OF [facility] VIA WHEELCHAIR ACCOMPANIED BY RN, AND BELONGINGS AT 1500.
--- NOTE | 2017-02-10 15:24 | NUR ---
I did touch base with and pt this am. They are planning home and yes they do want to continue the home health thru [place] where he was getting therapy. I did call and spoke with Paula and faxed discharge orders. At this time pt and deny needs. They have all the dme's needed an script for a wheelchair on chart for dismissal.
== END 2017-02-10 15:00 | disposition home health service (06) | DRG 286 ==
LOC: GMED 11:05 → GPCU 14:09
PROVIDERS: Emergency Medicine; Hospitalist; Internal Medicine Cardiovascular Disease; ADMIT Internal Medicine Interventional Cardiology
DX: I42.9 Cardiomyopathy, unspecified (principal); J96.20 Acute and chronic respiratory failure, unspecified whether with hypoxia or hypercapnia; I47.2 Ventricular tachycardia; I50.21 Acute systolic (congestive) heart failure; J94.8 Other specified pleural conditions; J98.11 Atelectasis; I48.92 Unspecified atrial flutter; I48.91 Unspecified atrial fibrillation; I25.10 Atherosclerotic heart disease of native coronary artery without angina pectoris; J44.9 Chronic obstructive pulmonary disease, unspecified; M41.9 Scoliosis, unspecified; I27.2 Other secondary pulmonary hypertension
CPT/HCPCS: A9270; C1760; J1644; J2001; J2250; J3010; J3475; J7030; J7040; Q9967

== ENCOUNTER → 2017-02-05 | Outpatient (CLI) | payer MEDICARE, OTHER | END | disposition disaster alternative care site (69) | LOC: GAMB 10:34 | DX: R06.00 Dyspnea, unspecified (principal); J44.9 Chronic obstructive pulmonary disease, unspecified; R11.0 Nausea; R06.02 Shortness of breath; Z90.2 Acquired absence of lung [part of]; Z79.899 Other long term (current) drug therapy | CPT/HCPCS: A0422; A0425; A0433; J0153; J2405; J2930 ==

== ENCOUNTER → 2017-05-08 | Outpatient (CLI) | payer MEDICARE, OTHER ==
[~2017-05-08] MED LIST changes: +BETAPACE (GENER80 MG; +BROVANA15 MCG/2 M INH; +CENTRUM SILVER1 EAC5 PO; +CLEARLAX510 GM PO; +ELIQUIS5 MG PO; +LANOXIN62.5 MCG PO; +LOPRESSOR100 MG PO; +MOVANTIK25 MG; +PARAFON FORTE500 MG; +PROBIOTIC1 EAC1 PO; +PULMICORT0.5 MG/21 INH; +ZOFRAN ODT4 MG PO
[2017-05-08 10:54] LABS: ANION GAP 8.2 (10.0-19.0); CALCIUM 8.6 mg/dL (8.5-10.5); POTASSIUM 4.2 mMol/L (3.7-5.1)
== END ==
LOC: LGSOS 10:40
PROVIDERS: Internal Medicine Interventional Cardiology
DX: Z51.81 Encounter for therapeutic drug level monitoring (principal); Z79.899 Other long term (current) drug therapy